=== PATIENT | female | born 1935 | race Caucasian/White ===

== ENCOUNTER 2018-04-29 00:44 | Inpatient (IN) | payer MEDICARE, MEDICAID ==
[2018-04-29 01:29] LABS: #Eosinphils 0.4 thou/uL (0.0-0.7); #Lymphocytes 2.9 thou/uL (1.20-3.40); #Monocytes 0.7 thou/uL (0.11-0.59); #Neutrophils 7.2 thou/uL (1.40-6.50); %Basophils 0.3 % (0.0-1.0); %Eosinophils 3.4 % (0.0-10.0); %Lymphocytes 25.7 % (21.0-51.0); %Monocytes 6.2 % (0.0-10.0); %Neutrophils 64.4 % (42.0-75.0); Hemoglobin 14.2 g/dL (12.0-16.0); Mean Corpuscular HGB CONC 33.5 g/dL (32.0-36.0); Mean Corpuscular Hemoglobin 33.2 pg (27.0-31.0); Mean Platelet Volume 8.2 fL (7.4-10.4); Platelet Count 178 thou/uL (130-400); RBC Distribution Width 12.3 % (11.5-14.5); Red Blood Cell (RBC) Count 4.28 mill/uL (4.20-5.40); White Blood Cell (WBC) Count 11.1 thou/uL (4.8-10.8)
[2018-04-29 01:49] LABS: ALT (SGPT) 24 U/L (8-55); AST (SGOT) 17 U/L (5-34); Alkaline Phosphatase 69 U/L (40-150); Anion Gap 14 mmol/L (10-20); BUN (Urea Nitrogen) 26 mg/dL (9.8-20.1); Bilirubin, Total 0.2 mg/dL (0.2-1.2); CK (CPK) 60 U/L (29-168); Calc. Creatinine Clearance 0 mL/min (70-130); Calcium 9.2 mg/dL (7.8-10.44); Carbon Dioxide 22 mmol/L (23-31); Chloride 106 mmol/L (98-107); Estimated GFR-MDRD 71; Globulin 2.9 g/dL (2.4-3.5); Glucose 113 mg/dL (83-110); Protein, Total 6.9 g/dL (6.0-8.3); Sodium 138 mmol/L (136-145)
[2018-04-29 01:53] LABS: CKMB 3.4 ng/mL (0-6.6); Troponin I 0.034 ng/mL (< 0.028)
[2018-04-29 03:10] LABS: Bilirubin Negative (Negative); Blood, Urine Trace (Negative); Clarity TURBID (Clear); Glucose, Urine (Dipstick) Negative (Negative); Leukocyte Large (Negative); Nitrite Positive (Negative); Protein, Urine (Dipstick) 30 mg/dL (Neg-Trace); Specific Gravity, Urine 1.018 (1.002-1.036); pH, Urine 7.5 (5.0-9.0)
[2018-04-29 03:13] LABS: Bacteria/HPF 4+ HPF (None Seen); Hyaline Casts/LPF 4-6 HYALINE CAST LPF (0-3 Hyaline); Pathc Cast-AUWi Flag 0.52 (0-2.49); RBC/HPF 0-3 HPF (0-3); Squamous Epithelial 0-3 HPF (0-3)
[2018-04-29 03:15] LABS: Yeast-AUWi Flag 32.1 (0-25.0)
[2018-04-29 03:19] LABS: Yeast-All Forms None Seen HPF (None Seen)
[2018-04-29] MEDS ORDERED: cefTRIAXone\\ROCEPHIN 2 GM VIAL ONE (03:59)
[2018-04-29] MEDS ORDERED: Enoxaparin Sodium 80 MG/0.8 ML SYRINGE ONE (04:44)
[2018-04-29] MEDS ORDERED: Ondansetron HCl/PF 4 MG/2 ML Vial IVP PRN (07:47)
[2018-04-29] MEDS ORDERED: Ondansetron ODT 4 MG TAB SL PRN (07:47)
[2018-04-29] MEDS ORDERED: Acetaminophen 325 MG TAB PO PRN (07:47)
[2018-04-29 08:05] LABS: INR-International Normal Ratio 1.2
--- NOTE | 2018-04-29 08:05 | PDOC.FPRHP ---
- History of Present Illness Chief Complaint: Right lower leg swelling History of Present Illness: 82 yo demented, longterm female brought into ED for RLE swelling starting today. On interview patient is unable to provide any further history but denies any current pain. Code status discussed with daughter via phone who confirmed DNR for patient. ED Course: LE Doppler confirmed DVT and CT chest showed multiple b/l PE per report to ERMD from radiology. Formal read pending. She was started on Lovenox. UA showed UTI and was started on Ceftriaxone 2gm. EKG showed Afib with RVR and she was given Diltiazem 20mg. - Allergies/Adverse Reactions Allergies Allergy/AdvReac Type Severity Reaction Status Date / Time No Known Drug Allergies Allergy Verified 04/29/18 10:53 - Home Medications Medication Instructions Recorded Confirmed Type Citalopram [CeleXA] 20 mg PO DAILY 04/29/18 04/29/18 History Diltiazem CD [Cardizem CD] 120 mg PO DAILY 04/29/18 04/29/18 History Donepezil HCl [Aricept] 10 mg PO HS 04/29/18 04/29/18 History Ferrous Sulfate 325 mg PO 04/29/18 History Furosemide [Lasix] PO DAILY 04/29/18 History Levothyroxine Sodium [Synthroid] 50 mcg PO DAILY 04/29/18 04/29/18 History - History PMHx: Hypothyroidism, CHF, Anemia, Dementia PSHx: Unable to obtain from patient FHx:Unable to obtain from patient Social: Unable to obtain from patient - Review of Systems ROS unobtainable: due to mental status (Unable to obtain ROS due to disoriented patient.) - Vital signs BP: [96/66] HR: [63] RR: [28] Tmax: [97.7] Pox: [95]% on [RA] Wt: [83kg] - Physical Exam Constitutional: NAD, other (Oriented x1 (only to person)) HEENT: normocephalic and atraumatic, no scleral icterus Chest: no lesions Heart: RRR, other Lungs: no respiratory distress, other (expiratory wheezes on auscultation) Abdomen: soft, non-tender, bowel sounds present Musculoskeletal: normal structure Skin: no rash/lesions, other (RLE edema from knee down. Non erythematous and non tender to palpation) Heme/Lymphatic: no unusual bruising or bleeding FMR H&P: Results - Labs Result Diagrams: 04/29/18 01:17 04/29/18 01:17 Lab results: WBC 11.1 thou/uL (4.8-10.8) H 04/29/18 01:17 Hgb 14.2 g/dL (12.0-16.0) 04/29/18 01:17 Hct 42.3 % (36.0-47.0) 04/29/18 01:17 MCV 99.0 fL (78.0-98.0) H 04/29/18 01:17 Plt Count 178 thou/uL (130-400) 04/29/18 01:17 Neutrophils % 64.4 % (42.0-75.0) 04/29/18 01:17 Sodium 138 mmol/L (136-145) 04/29/18 01:17 Potassium 4.0 mmol/L (3.5-5.1) 04/29/18 01:17 Chloride 106 mmol/L (98-107) 04/29/18 01:17 Carbon Dioxide 22 mmol/L (23-31) L 04/29/18 01:17 BUN 26 mg/dL (9.8-20.1) H 04/29/18 01:17 Creatinine 0.77 mg/dL (0.6-1.1) 04/29/18 01:17 Glucose 113 mg/dL (83-110) H 04/29/18 01:17 Calcium 9.2 mg/dL (7.8-10.44) 04/29/18 01:17 Total Bilirubin 0.2 mg/dL (0.2-1.2) 04/29/18 01:17 AST 17 U/L (5-34) 04/29/18 01:17 ALT 24 U/L (8-55) 04/29/18 01:17 Alkaline Phosphatase 69 U/L (40-150) 04/29/18 01:17 Creatine Kinase 60 U/L (29-168) 04/29/18 01:17 CK-MB (CK-2) 3.4 ng/mL (0-6.6) 04/29/18 01:17 B-Natriuretic Peptide 489.4 pg/mL (0-100) H 04/29/18 01:17 Serum Total Protein 6.9 g/dL (6.0-8.3) 04/29/18 01:17 Albumin 4.0 g/dL (3.4-4.8) 04/29/18 01:17 Urine Ketones Negative mg/dL (Negative) 04/29/18 02:34 Urine Blood Trace (Negative) H 04/29/18 02:34 Urine Nitrite Positive (Negative) H 04/29/18 02:34 Ur Leukocyte Esterase Large (Negative) H 04/29/18 02:34 Urine RBC 0-3 HPF (0-3) 04/29/18 02:34 Urine WBC Greater Than 50-TNTC HPF (0-3) H 04/29/18 02:34 Ur Squamous Epith Cells 0-3 HPF (0-3) 04/29/18 02:34 Urine Bacteria 4+ HPF (None Seen) H 04/29/18 02:34 - EKG Interpretation EKG: a fib with RVR FMR H&P: A/P - Problem List (1) DVT (deep venous thrombosis) Current Visit: Yes Status: Acute Code(s): I82.409 - ACUTE EMBOLISM AND THOMBOS UNSP DEEP VN UNSP LOWER EXTREMITY (2) Pulmonary emboli Current Visit: Yes Status: Acute Code(s): I26.99 - OTHER PULMONARY EMBOLISM WITHOUT ACUTE COR PULMONALE (3) UTI (urinary tract infection) Current Visit: Yes Status: Acute (4) Hypothyroid Current Visit: Yes Status: Chronic Code(s): E03.9 - HYPOTHYROIDISM, UNSPECIFIED (5) Afib Current Visit: Yes Status: Chronic Code(s): I48.91 - UNSPECIFIED ATRIAL FIBRILLATION (6) CHF (congestive heart failure) Current Visit: Yes Status: Acute Code(s): I50.9 - HEART FAILURE, UNSPECIFIED - Plan 82 yo F with DVT, multiple, b/l PE, UTI, AFib with RVR. 1. DVT & PE -Admit to telemery ([facility]) -Lovenox 80mg SC q12hrs -Coag studies ordered -Formal read on imaging pending -Pulmonology consult in a.m. 2. UTI -Started on Rocephin 1gm (day 1: 05/30) -Pending urine cultures 3. Afib with RVR: -Will repeat EKG -Troponins 0.034 -Continue home dose of Diltiazem: 120mg daily -Consider cardiology consult -Continue to monitor and observe 4. Hypothyroidism -TSH ordered -Synthroid 5.CHF -BNP 4894 -Echo ordered -Daily weights -Fluid restrict diet once swallow eval passed 6. Diet: NPO -Bedside swallow test ordered due to severe dementia 7. Dementia: -Home meds Discussed with family DNR status. FMR H&P: Upper Level - Pertinent history 82 yo F who presents from [place] for concern of RLE swelling. She denies any symptoms and feels well. Oriented x1 at baseline. - Pertinent findings Gen: awake, alert and oriented x1 HEENT: EOMI, conjunctiva non-injected CV: RRR, no murmur noted RESP: BL scattered expiratory wheezes ABD: soft, nontender, nondistended, bowel sounds present Ext: RLE with 2+ pitting edema to knee and L knee grossly larger than R - Plan Date/Time: 04/29/18 0802 I, Briana Wills MD, PGY-3, have evaluated this patient and agree with findings/ plan as outlined by psychology intern resident. Pertinent changes/additions are listed here. 82 yo F with PMHx as above here with RLE DVT and BL PE 1. BL PE and DVT: Admit to IMCU and will plan for therapeutic lovenox. Consult pulmonology in a.m. Hemodynamically stable at this time. 2. A fib: In RVR on admission, now in sinus. Lovenox as above. Will check TSH. Consider cardiology consult if a fib persistent/RVR. Home dilt. 3. Hypothyroidism: Check TSH. Continue home medications. 4. UTI: UCx pending. Continue rocephin. 5. CHF with unknown last EF: Elevated BNP. Will order ECHO. Fluid restrict diet once bedside swallow passed. No IV fluids at this time. 6. Dementia: Home aricept NPO pending bedside swallow. PPX: Therapeutic lovenox, no GI ppx indicated at this time Attending Addendum - Attending Addendum Date/Time: 04/29/18 0900 I personally evaluated the patient and discussed the management with Dr. Grace/ Johann. I agree with the History, Examination, Assessment and Plan documented above with any addition or exceptions noted below. Patient is a resident at [place] and presents with unilateral leg swelling and pain and AFib RVR with a history of chronic Afib previously rate controlled. She was found to have lower extremity DVT and CTA shows significant PE. She is hemodynamically stable, BP ok and is showing normal oxygenation on room air. She has no complaints other than chronic back pain. She has been admitted to [facility] for further monitoring. Continue therapeutic lovenox with bridge to half-way OAC, and obtain Echo. S/P Diltiazem, she has become bradycardic but asymptomatic. Will consult Pulm and Cardiology. Evidence of heart strain based on BNP but need echo for definitive evidence. Supportive care as needed. Holding home meds including Megace which can predispose to VTE.
[2018-04-29 08:06] LABS: PTT 40.6 SEC (22.9-36.1)
--- NOTE | 2018-04-29 08:49 | CT ---
PRELIMINARY REPORT/[facility]/EMERGENTY AFTER-HOURS PROCEDURE CT Head Without Intravenous Contrast CLINICAL HISTORY: 82 years old, female; Signs and symptoms; Altered mental status/memory loss; Patient HX: AMS TECHNIQUE: Axial computed tomography images of the head/brain without intravenous contrast. COMPARISON: No relevant prior studies available. FINDINGS: Limitations: Motion artifact limits this study. Brain: No evidence of acute large vessel infarction. No evidence of acute intracranial hemorrhage, ex traxial fluid or midline shift. Mild low density changes within the white matter bilaterally. Cerebel lum atrophic; otherwise, posterior fossa structures within normal limits. Ventricles: Mild prominence of the cerebral sulci and ventricles. Bones/joints: Normal. No acute fracture. Sinuses: Mild left maxillary sinus fluid/soft tissue. Mastoid air cells: Normal as visualized. No mastoid effusion. Soft tissues: Normal. IMPRESSION: 1. Motion artifact limits this study. 2. No evidence of acute large vessel infarction. 3. No evidence of acute intracranial hemorrhage, extraxial fluid or midline shift. 4. Mild cerebral atrophy. 5. 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 6. Mild left maxillary sinus fluid/soft tissue. Thank you for allowing us to participate in the care of your patient. Dictated and Authenticated by: Romain Crisostomo MD 04/29/2018 4:44 AM Central Time ([place] & [place]) CT HEAD NONCONTRAST: INDICATIONS: Altered mental status. FINDINGS/IMPRESSION: I agree with the preliminary interpretation provided above. There is no intracranial hemorrhage or mass effect. Moderate chronic microvascular ischemic disease. Left maxillary sinus inflammatory opacification. Correlate clinically. POS: [facility]
[2018-04-29] MEDS ORDERED: Enoxaparin Sodium 80 MG/0.8 ML SYRINGE SC SCH (09:00)
--- NOTE | 2018-04-29 09:09 | ULT ---
PRELIMINARY REPORT/[facility]/EMERGENTY AFTER-HOURS PROCEDURE Addendum created by Romain Crisostomo MD on 04/29/2018 3:54 AM Central Time ([place] & [place]) THIS REPORT CONTAINS FINDINGS THAT MAY BE CRITICAL TO PATIENT CARE. The findings were verbally commun icated via telephone conference with APARTMENT LEASING MANAGER Baylee De La Torre at 3:40 AM CDT on 04/29/2018. The findings were acknowledged and understood. Initial Report created on 04/29/2018 3:53 AM Central Time ([place] & [place]) US Duplex Right Lower Extremity Veins CLINICAL HISTORY: 82 years old, female; Pain; Other: Rle pain, swelling- entire leg TECHNIQUE: Real-time duplex ultrasound scan of the right lower extremity veins integrating B-mode two dimensiona l vascular structure, Doppler spectral analysis, color flow Doppler imaging and compression. COMPARISON: No relevant prior studies available. FINDINGS: Deep veins: Noncompressible right common femoral, femoral, popliteal and calf veins with internal hyp oechoic material consistent with thrombus. Superficial veins: Suspected thrombus in the visualized great saphenous vein. Soft tissues: No acute findings. No popliteal cyst. IMPRESSION: Abnormal study - DVT in the right lower extremity as described above. Thank you for allowing us to participate in the care of your patient. Dictated and Authenticated by: Romain Crisostomo MD 04/29/2018 3:53 AM Central Time ([place] & [place]) FINAL REPORT RIGHT LOWER EXTREMITY DOPPLER VENOUS ULTRASOUND: (COBB SCALE AND DOPPLER COLOR FLOW IMAGING WITH SPECTRAL ANALYSIS) FINDINGS/IMPRESSION: I agree with the preliminary report provided by [facility]. There is evidence of deep venous thrombosis involving common femoral through popliteal veins of right lower extremity. POS: [facility]
[2018-04-29 09:10] LABS: CKMB 3.4 ng/mL (0-6.6); Troponin I 0.021 ng/mL (< 0.028)
[2018-04-29] MEDS: Citalopram 20 MG TAB PO SCH (09:12)
[2018-04-29] MEDS: Furosemide 20 MG TAB PO SCH (09:12)
[2018-04-29] MEDS: Levothyroxine Sodium 50 MCG TAB PO SCH (09:12)
--- NOTE | 2018-04-29 09:13 | CT ---
PRELIMINARY REPORT/[facility]/EMERGENTY AFTER-HOURS PROCEDURE THIS REPORT CONTAINS FINDINGS THAT MAY BE CRITICAL TO PATIENT CARE. The findings were verbally commun icated via telephone conference with VIRAJ Kearns at 5:02 AM CDT on 04/29/2018. The findings were acknowledged and understood. Initial Report created on 04/29/2018 5:04 AM Central Time ([place]) CT Angiography Chest With Intravenous Contrast CLINICAL HISTORY: 82 years old, female; Pain; Other: Dyspnea; Patient HX: Dyspnea. Additional history obtained from [facility], additional history obtained from [facility], 82f presents via [facility] for the evaluation of right low er leg swelling and external rotation. Unsure if rotation is acute or chronic per [facility]. Patient also n oted to be afib w rvr during transport. Patient with HX of dementia, does not recall a fall TECHNIQUE: Axial computed tomographic angiography images of the chest with intravenous contrast using CT angiogr aphy protocol. MIP reconstructed images were created and reviewed. COMPARISON: No relevant prior studies available. FINDINGS: Limitations: External and motion artifact limits this study. Pulmonary arteries: Adequate contrast enhancement of the pulmonary arteries. Abnormal filling defects -emboli within the right pulmonary artery ascending and descending branches and too lobar right uppe r, right lower and left lower lobar-segmental pulmonary arterial vessels. No evidence of filling defects in the cardiac chambers. Aorta: No evidence of aortic dissection. Mild up to 3.7 cm ectasia of ascending thoracic aorta. Chronic atherosclerotic calcification of the vasculature. Lungs: No evidence endobronchial lesion. Mild bilateral lower lobe dependent air space opacityatelect asis/ scarring. Pleural space: No evidence of pleural effusion. No evidence of pneumothorax. Heart: Heart appears within normal limits, no pericardial effusion. Bones/joints: Multi-level degenerative changes involve the thoracic spine. Soft tissues: Unremarkable. Lymph nodes: No significant lymphadenopathy. Gallbladder and bile ducts: Gallbladder not identified - surgical clips present in fossa. Stomach and bowel: Mild - moderate amount retained stool material throughout nondilated colon. IMPRESSION: 1. External and motion artifact limits this study. 2. Abnormal study-evidence of bilateral pulmonary emboli as described above. 3. Mild up to 3.7 cm ectasia of ascending thoracic aorta. 4. Mild bilateral lower lobe dependent air space opacity-atelectasis/scarring. 5. Findings suggest mild-moderate degree of constipation. Thank you for allowing us to participate in the care of your patient. Dictated and Authenticated by: Romain Crisostomo MD 04/29/2018 5:04 AM Central Time ([place] & [place]) FINAL REPORT CT ARTERIOGRAM CHEST WITH IV CONTRAST AND 3D MIP IMAGING: Date: 04-29-18 performed on emergency basis at 0414 hours. History: Chest pain, dyspnea. FINDINGS: I agree with the preliminary report by Dr. Mackenzie from [facility]. Small, incompletely occlus yohana bilateral lower lobe pulmonary emboli are confirmed. Code QA POS: [facility]
--- NOTE | 2018-04-29 09:53 | RAD ---
PORTABLE CHEST: Date: 04/29/18 HISTORY: Atrial fibrillation. FINDINGS: Heart size within normal limits. Aorta is tortuous. The lungs are clear of any infiltrative process. No signs of failure. IMPRESSION: No active intrathoracic disease. POS: [facility]
--- NOTE | 2018-04-29 10:00 | RAD ---
TWO AP VIEWS OF THE PELVIS: INDICATIONS: Concern for possible right hip fracture with right hip pain and atrial fibrillation with RVR. COMPARISON: No comparisons are available. FINDINGS: The two provided AP images demonstrate diffuse osteopenia of the pelvis. Enthesopathic change is see n off the trochanters, as well as the anterior pelvis. No definite displaced fracture is evident. T he right hip is held in external rotation, which slightly limits the examination. There are scattere d phleboliths within the pelvis. There is advanced disk degenerative disease at L5-S1 with moderate degenerative changes involving both SI joints. The visualized bowel gas pattern is nonspecific. IMPRESSION: 1. Diffuse osteopenia without definite acute fracture. There are some limitations of the examinatio n due to positioning. Dedicated right hip radiographs are recommended to assess further for right hi p fracture, as the right hip is held in external rotation during the anterior-posterior evaluation of this pelvis. 2. Chronic findings as above. POS: [facility]
--- NOTE | 2018-04-29 10:58 | CON ---
DATE OF CONSULTATION: 04/29/2018 This encompasses 70 minutes of time. Of that time, greater than 50% was spent with the patient and/o r in the patient's unit in the hospital. REASON FOR CONSULTATION: Pulmonary embolism. This is [facility] mandatory consultation. HISTORY OF PRESENT ILLNESS: This is an 82-year-old white female who is severely demented and cannot give me much in the way of history other than she states that she is short of breath. She was jennifer t in last night with lower extremity swelling. She had a scan, which demonstrated bilateral pulmonar y emboli. She has been placed on anticoagulation and she is currently in the intermediate care unit. From what I can tell, she is a long-term patient at [facility] under the care of Dr. Kesha Cody. PAST MEDICAL HISTORY: 1. COPD. 2. Hypertension. 3. Hypothyroidism. 4. Irritable bowel syndrome. 5. Degenerative joint disease. 6. Anxiety. 7. Depression. 8. Tobacco abuse. 9. Insomnia. 10. Dementia. 11. Osteoporosis. PAST SURGICAL HISTORY: 1. Hysterectomy with bilateral oophorectomy. 2. Right knee hemiarthroplasty. 3. Right foot surgery. 4. EGD. 5. Glaucoma surgery. 6. Colonoscopy with polypectomy. FAMILY MEDICAL HISTORY: Remarkable for father who in his 70s of stroke. Mother in her 60s of [place]. Family medical history is also remarkable for arthritis, diabetes, coronary artery disease, hypertension, stroke, osteoporosis. SOCIAL HISTORY: She is a former smoker who smoked 1 pack per day up until 2013, does not consume alc ohol. MEDICATIONS PRIOR TO ADMISSION: Aricept, Celexa, Synthroid, Cardizem-CD, Lasix, iron sulfate. ALLERGIES: None. REVIEW OF SYSTEMS: Twelve point review of systems cannot be obtained secondary to the patient's glen re dementia. PHYSICAL EXAMINATION: VITAL SIGNS: Blood pressure 96/66, heart rate 63, respirations 20, temperature 97.7, O2 sat 95%. GENERAL: The patient is awake and in no distress. HEENT: Pupils react. Sclerae anicteric. Oropharynx clear. NECK: No adenopathy, no JVD, or bruits. LUNGS: Clear without wheezing or rhonchi. CARDIAC: S1, S2 regular with 2/6 systolic murmur at the left sternal border. ABDOMEN: Soft, nontender, nondistended. No hepatosplenomegaly. EXTREMITIES: No clubbing, cyanosis. She has right lower extremity edema from the knee downward. LABORATORY DATA AND IMAGING: White blood cell count 11, hematocrit 42, platelet count 178. Sodium 1 38, potassium 4, chloride 106, CO2 22, BUN 26, creatinine 0.7, glucose 113. I reviewed her CT of the chest personally, it does show a fairly substantial right saddle pulmonary embolism. She also has p eripheral pulmonary emboli bilaterally. A Doppler of the right lower extremity also showed DVT. ASSESSMENT: 1. Pulmonary embolism. 2. Deep venous thrombosis. 3. Severe dementia. 4. Other chronic medical problems as listed above. RECOMMENDATIONS: This patient needs to be treated for pulmonary emboli. I would recommend switching her to either Eliquis or Xarelto and stopping the enoxaparin. If there is significant bleeding risk , then Coumadin should be considered as it would be rapidly reversible. She is probably safe to move out to the regular telemetry unit. She does have a DNR order.
[2018-04-29] MEDS ORDERED: Diltiazem 125 MG in Sodium Chloride 0.9% 100 ML IVPB SCH (12:15)
[2018-04-29] MEDS: Lactated Ringer's 1,000 ML IV SCH (12:34)
[2018-04-29] MEDS ORDERED: ISOVUE-370 76%-LOCM 1 ML ONE (13:00)
[2018-04-29] MEDS ORDERED: Amiodarone HCl 150 MG in Dextrose 5% in Water 100 ML IVPB SCH (17:15)
[2018-04-29] MEDS ORDERED: Amiodarone In Dextrose 200 ML IVPB SCH (17:15)
[2018-04-29] MEDS ORDERED: Amiodarone HCl 150 MG, Admixture Fee 1 EACH in Dextrose 5% in Water 100 ML IVPB SCH (17:45)
[2018-04-29] MEDS: Amiodarone HCl 450 MG, Admixture Fee 1 EACH in Dextrose 5% in Water 250 ML IVPB SCH (18:28)
[2018-04-29] MEDS: Apixaban 5 MG TAB PO SCH (20:22)
[2018-04-29] MEDS: Donepezil HCl 10 MG TAB PO SCH (20:22)
[2018-04-29] MEDS ORDERED: Apixaban 5 MG TAB PO SCH (21:00)
--- NOTE | 2018-04-29 23:25 | CON ---
DATE OF CONSULTATION: 04/29/2018 HISTORY: Tammi Jean is an 82-year-old white female group home resident from [place] with history of dementia. Her daughter states that she was on hospice for a while because of her severe COPD, but when she stopped smoking 2 packs per day four and half years ago, her COPD improved to where she was taken off of hospice, but she was still in the group home in [place] for dementia. She gets around in a wheelchair. Apparently, it was noted that she had leg edema and was sent to the emergency room for right leg edema. She was found to have a DVT in this leg and chest CTA revealed bilateral pulmonary emboli. She has had paroxysmal atrial fibrillation since admission. Due to Ms. Jean's dementia, I am uncertain as to her reliability. However, she does deny any chest discomfort or shortness of breath at the present time. She denies any history of palpitations. PAST MEDICAL HISTORY: Dementia, hypothyroidism and anemia. MEDICATIONS: Celexa 20 mg daily, diltiazem 120 daily, Aricept 10 mg at bedtime , ferrous sulfate 325 daily, furosemide unknown dose daily and levothyroxine 50 mcg daily. ALLERGIES: None. OPERATIONS: Hysterectomy with bilateral salpingo-oophorectomy, right foot surgery, right knee arthroscopy, glaucoma surgery, colonoscopy with polypectomy. SOCIAL HISTORY: She smoked 2 packs per day, but stopped 4-1/2 years ago. FAMILY HISTORY: Unobtainable. REVIEW OF SYSTEMS: Unobtainable. PHYSICAL EXAMINATION: VITAL SIGNS: 108/59, pulse of 115, atrial fibrillation on the monitor. HEENT: PERRL. NECK: Supple. CHEST: Clear. CARDIAC: S1, S2 normal, without any S3 or S4. There are no murmurs. ABDOMEN: Normal bowel sounds without tenderness or organomegaly. EXTREMITIES: Revealed 2+ pretibial edema on the right, no edema on the left. NEUROLOGIC: Intact except for patient's dementia. IMAGING DATA AND LABORATORY DATA: EKG revealed atrial fibrillation with rapid ventricular response of 127 per minute. Hemoglobin 14.2, hematocrit 42.3, white count 11,100 and platelets 178,000. INR 1.2, sodium 138, potassium 4.0, chloride 106, carbon dioxide 22, BUN 26, creatinine 0.77, troponin I 0.034, BNP 489.4. TSH is normal. IMPRESSION: 1. Right leg deep venous thrombosis with bilateral pulmonary emboli. 2. Paroxysmal atrial fibrillation, probably related to #1. 3. Dementia. 4. Hypothyroidism. 5. Hypertension. 6. Chronic obstructive pulmonary disease, former smoker. PLAN: Patient is somewhat hypotensive on the Cardizem and I agree with starting amiodarone intravenously. Also for slowing her rate, she may require intermittent doses of digoxin. I will continue to follow the patient with you. MTDD
[2018-04-30] MEDS: Lactated Ringer's 1,000 ML IV SCH ×2 (01:05→09:37)
[2018-04-30] MEDS: Amiodarone HCl 450 MG, Admixture Fee 1 EACH in Dextrose 5% in Water 250 ML IVPB SCH ×2 (03:38→20:16)
[2018-04-30] MEDS: Acetaminophen 325 MG TAB PO PRN ×2 (04:17→20:50)
[2018-04-30 04:40] LABS: #Basophils 0.1 thou/uL (0.0-0.2); #Eosinphils 0.3 thou/uL (0.0-0.7); #Lymphocytes 3.3 thou/uL (1.20-3.40); #Monocytes 0.8 thou/uL (0.11-0.59); #Neutrophils 6.4 thou/uL (1.40-6.50); %Basophils 0.7 % (0.0-1.0); %Eosinophils 2.9 % (0.0-10.0); %Lymphocytes 30.2 % (21.0-51.0); %Neutrophils 59.1 % (42.0-75.0); Hemoglobin 13.6 g/dL (12.0-16.0); Mean Corpuscular Hemoglobin 33.6 pg (27.0-31.0); Mean Corpuscular Volume 98.6 fL (78.0-98.0); Mean Platelet Volume 7.9 fL (7.4-10.4); Platelet Count 195 thou/uL (130-400); RBC Distribution Width 12.3 % (11.5-14.5); Red Blood Cell (RBC) Count 4.07 mill/uL (4.20-5.40); White Blood Cell (WBC) Count 10.8 thou/uL (4.8-10.8)
[2018-04-30] MEDS: cefTRIAXone\\ROCEPHIN 1 GM in Sodium Chloride 0.9% 100 ML IVPB SCH (04:45)
[2018-04-30 05:08] LABS: ALT (SGPT) 23 U/L (8-55); AST (SGOT) 20 U/L (5-34); Albumin 3.4 g/dL (3.4-4.8); Alkaline Phosphatase 37 U/L (40-150); Anion Gap 14 mmol/L (10-20); BUN (Urea Nitrogen) 17 mg/dL (9.8-20.1); Bilirubin, Total 0.3 mg/dL (0.2-1.2); Calc. Creatinine Clearance 69 mL/min (70-130); Calcium 8.7 mg/dL (7.8-10.44); Carbon Dioxide 22 mmol/L (23-31); Chloride 104 mmol/L (98-107); Estimated GFR-MDRD 77; Globulin 2.6 g/dL (2.4-3.5); Glucose 79 mg/dL (83-110); Potassium 4.1 mmol/L (3.5-5.1); Sodium 136 mmol/L (136-145)
--- NOTE | 2018-04-30 06:14 | PDOC.FM ---
- Subjective Subjective: 82 yo female seen this AM. Patient has no complaint of pain or SOB. She states she has been sleeping well. She denies n/v/d, fevers, chills, chest pain, lightheadedness, or cough. She has no other complaints today. - Objective Vital Signs & Weight: Vital Signs (12 hours) Temp Pulse Resp BP Pulse Ox 04/30/18 03:57 97.2 F L 59 L 22 H 91/43 L 98 04/29/18 23:42 97.0 F L 67 22 H 114/65 95 04/29/18 20:00 97.0 F L 67 22 H 04/29/18 19:46 98.8 F 88 24 H 114/58 L 96 Weight Weight 74.843 kg I&O: 04/28/18 04/29/18 04/30/18 06:59 06:59 06:59 Intake Total 1051 Balance 1051 Result Diagrams: 04/30/18 03:16 04/30/18 03:16 <Rohit Schneider - Last Filed: 04/30/18 07:23> - Objective Vital Signs & Weight: Vital Signs (12 hours) Temp Pulse Resp BP Pulse Ox 04/30/18 11:36 98.1 F 63 20 100/43 L 95 04/30/18 09:15 62 04/30/18 08:00 98.6 F 62 19 98 04/30/18 07:37 98.6 F 58 L 19 127/58 L 98 04/30/18 03:57 97.2 F L 59 L 22 H 91/43 L 98 Weight Weight 74.843 kg I&O: 04/29/18 04/30/18 05/01/18 06:59 06:59 06:59 Intake Total 1051 1103 Balance 1051 1103 Result Diagrams: 04/30/18 03:16 04/30/18 03:16 <Chance Goodman - Last Filed: 04/30/18 11:47> Phys Exam - Physical Examination Constitutional: NAD HEENT: PERRLA, moist MMs Neck: no nodes Respiratory: no wheezing, clear to auscultation bilateral Cardiovascular: no significant murmur Bradycardia Gastrointestinal: soft, non-tender, no distention, positive bowel sounds Musculoskeletal: pulses present RLE swelling. Neurological: non-focal, moves all 4 limbs Lymphatic: no nodes Psychiatric: normal affect Skin: no rash <Rohit Schneider - Last Filed: 04/30/18 07:23> Dx/Plan (1) Pulmonary emboli Code(s): I26.99 - OTHER PULMONARY EMBOLISM WITHOUT ACUTE COR PULMONALE Status : Acute (2) DVT (deep venous thrombosis) Code(s): I82.409 - ACUTE EMBOLISM AND THOMBOS UNSP DEEP VN UNSP LOWER EXTREMITY Status: Acute (3) Afib Code(s): I48.91 - UNSPECIFIED ATRIAL FIBRILLATION Status: Chronic (4) UTI (urinary tract infection) Status: Acute (5) CHF (congestive heart failure) Code(s): I50.9 - HEART FAILURE, UNSPECIFIED Status: Acute (6) Hypothyroid Code(s): E03.9 - HYPOTHYROIDISM, UNSPECIFIED Status: Chronic - Plan Plan: 1. DVT & PE - Lovenox transitioned to Eliquis - Hemodynamically stable at this time. - Continue anticoagulation 2. UTI - Started on Rocephin 1gm - Urine cultures Gram negative hiro. Sensitivities pending 3. Afib with RVR: - Patient has converted to sinus rhythm, but bradycardia - Currently on Amiodarone, will consider digoxin - Held home diltiazem for now - Cardiology consulted and is in agreement - Continue to monitor and observe 4. Hypothyroidism - TSH appropriate - Synthroid 5.CHF - BNP 4894 - Echo ordered - Daily weights - Fluid restrict diet once swallow eval passed 6. Dementia: - Home meds Disposition: Stable, will continue current plan of care. <Rohit Schneider - Last Filed: 04/30/18 07:23> (1) DVT (deep venous thrombosis) Code(s): I82.409 - ACUTE EMBOLISM AND THOMBOS UNSP DEEP VN UNSP LOWER EXTREMITY Status: Acute (2) Pulmonary emboli Code(s): I26.99 - OTHER PULMONARY EMBOLISM WITHOUT ACUTE COR PULMONALE Status : Acute (3) UTI (urinary tract infection) Status: Acute (4) Hypothyroid Code(s): E03.9 - HYPOTHYROIDISM, UNSPECIFIED Status: Chronic (5) Afib Code(s): I48.91 - UNSPECIFIED ATRIAL FIBRILLATION Status: Chronic (6) CHF (congestive heart failure) Code(s): I50.9 - HEART FAILURE, UNSPECIFIED Status: Acute <Chance Goodman R - Last Filed: 04/30/18 11:47> Attending Addendum - Attending Addendum Date/Time: 04/30/18 0016 I personally evaluated the patient and discussed the management with Dr. Schneider. I agree with the History, Examination, Assessment and Plan documented above with any addition or exceptions noted below. Patient doing well and denies complaints. She is now on Eliquis for OAC for treatment of her PE. Echo pending, but not hypoxic and HDS so does not appear to be major threat. HR improved with Amio and will continue that. Will transfer from IMCU to telemetry today. <Chance Goodman R - Last Filed: 04/30/18 11:47>
[2018-04-30] MEDS ORDERED: Digoxin 0.5 MG/2 ML AMP SLOW IVP SCH (08:30)
--- NOTE | 2018-04-30 08:58 | PRG ---
DATE OF SERVICE: 04/30/2018 The patient is awake, alert, not completely oriented. She had no acute complaints. PHYSICAL EXAMINATION: VITAL SIGNS: Temperature 98.6, pulse 58, respiration 19, O2 sat 98%, blood pressure 127/58. HEENT: Unremarkable. NECK: No JVD. CARDIAC: S1, S2, irregularly irregular, currently on an amiodarone drip. LUNGS: Clear. ABDOMEN: Soft, nontender. EXTREMITIES: Left lower extremity edema is present. LABORATORY DATA: White blood cell count 10.8, hematocrit 40.1, platelet count 195. Sodium 136, pota ssium 4.1, chloride 104, CO2 22, BUN 17, creatinine 0.7, glucose 79. ASSESSMENT: 1. Acute pulmonary embolism. 2. Atrial fibrillation. 3. Dementia. 4. Hypothyroidism. 5. Chronic obstructive pulmonary disease. PLAN: 1. Continue anticoagulation with Eliquis. 2. The patient can probably be moved out to the telemetry unit. 3. Duration of anticoagulation will need to be at least 6 months and perhaps lifetime. 4. Stop her IV fluids since she is receiving diuretic therapy.
[2018-04-30] MEDS: Citalopram 20 MG TAB PO SCH (09:14)
[2018-04-30] MEDS: Apixaban 5 MG TAB PO SCH ×2 (09:14→20:50)
[2018-04-30] MEDS: Furosemide 20 MG TAB PO SCH (09:15)
[2018-04-30] MEDS: Levothyroxine Sodium 50 MCG TAB PO SCH (09:15)
[2018-04-30] MEDS: Donepezil HCl 10 MG TAB PO SCH (20:50)
[2018-05-01] MEDS: cefTRIAXone\\ROCEPHIN 1 GM in Sodium Chloride 0.9% 100 ML IVPB SCH (04:49)
[2018-05-01] MEDS ORDERED: Benzonatate 100 MG CAP PO PRN (05:07)
[2018-05-01 06:04] LABS: ALT (SGPT) 24 U/L (8-55); AST (SGOT) 19 U/L (5-34); Albumin 3.5 g/dL (3.4-4.8); Alkaline Phosphatase 43 U/L (40-150); Anion Gap 10 mmol/L (10-20); BUN (Urea Nitrogen) 14 mg/dL (9.8-20.1); Bilirubin, Total 0.3 mg/dL (0.2-1.2); Calc. Creatinine Clearance 68 mL/min (70-130); Calcium 8.7 mg/dL (7.8-10.44); Carbon Dioxide 25 mmol/L (23-31); Chloride 106 mmol/L (98-107); Estimated GFR-MDRD 70; Globulin 2.3 g/dL (2.4-3.5); Glucose 82 mg/dL (83-110); Protein, Total 5.8 g/dL (6.0-8.3); Sodium 137 mmol/L (136-145)
[2018-05-01 06:26] LABS: #Eosinphils 0.3 thou/uL (0.0-0.7); #Lymphocytes 2.9 thou/uL (1.20-3.40); #Monocytes 0.6 thou/uL (0.11-0.59); #Neutrophils 5.1 thou/uL (1.40-6.50); %Basophils 0.2 % (0.0-1.0); %Eosinophils 3.1 % (0.0-10.0); %Lymphocytes 32.9 % (21.0-51.0); %Monocytes 6.7 % (0.0-10.0); %Neutrophils 57.1 % (42.0-75.0); Hemoglobin 13.2 g/dL (12.0-16.0); Mean Corpuscular HGB CONC 33.7 g/dL (32.0-36.0); Mean Corpuscular Hemoglobin 33.4 pg (27.0-31.0); Mean Corpuscular Volume 99.2 fL (78.0-98.0); Mean Platelet Volume 8.4 fL (7.4-10.4); Platelet Count 175 thou/uL (130-400); RBC Distribution Width 12.2 % (11.5-14.5); Red Blood Cell (RBC) Count 3.94 mill/uL (4.20-5.40); White Blood Cell (WBC) Count 8.9 thou/uL (4.8-10.8)
--- NOTE | 2018-05-01 06:31 | PDOC.FM ---
- Subjective Subjective: 82 yo female seen this AM. Patient states that she had a good night. She denies any complaints. Night team informed that patient had pink tinged urine overnight. Coagulation panel shows INR 1.5 this AM up from 1.2. Patient otherwise has no other complaints. - Objective Vital Signs & Weight: Vital Signs (12 hours) Temp Pulse Resp BP Pulse Ox 05/01/18 04:00 97.4 F L 55 L 20 120/71 97 05/01/18 00:37 97.9 F 64 20 152/72 H 96 04/30/18 22:26 55 L 24 H 135/61 04/30/18 20:10 98.1 F 64 24 H 96 04/30/18 19:40 98.1 F 66 24 H 136/68 96 Weight Weight 79.787 kg I&O: 04/29/18 04/30/18 05/01/18 06:59 06:59 06:59 Intake Total 1051 2499 Balance 1051 2499 Result Diagrams: 05/01/18 05:15 05/01/18 05:15 <Rohit Schneider - Last Filed: 05/01/18 07:42> - Objective Vital Signs & Weight: Vital Signs (12 hours) Temp Pulse Pulse Resp BP BP Pulse Ox 05/01/18 11:50 98.7 F 50 L 18 142/63 H 96 05/01/18 09:37 53 L 138/65 05/01/18 08:05 97.3 F L 50 L 20 150/72 H 96 05/01/18 04:00 97.4 F L 55 L 20 120/71 97 Weight Admit Weight 74.843 kg Weight 79.787 kg I&O: 04/30/18 05/01/18 05/02/18 06:59 06:59 06:59 Intake Total 1051 2499 Balance 1051 2499 Result Diagrams: 05/01/18 05:15 05/01/18 05:15 <Chance Goodman - Last Filed: 05/01/18 13:23> Phys Exam - Physical Examination Constitutional: NAD HEENT: PERRLA, moist MMs Neck: no nodes Respiratory: no wheezing, clear to auscultation bilateral Cardiovascular: no significant murmur Bradycardia Gastrointestinal: soft, non-tender, no distention, positive bowel sounds Musculoskeletal: no edema, pulses present Neurological: non-focal, moves all 4 limbs Psychiatric: normal affect Skin: no rash <Rohit Schneider - Last Filed: 05/01/18 07:42> Dx/Plan (1) Pulmonary emboli Code(s): I26.99 - OTHER PULMONARY EMBOLISM WITHOUT ACUTE COR PULMONALE Status : Acute (2) DVT (deep venous thrombosis) Code(s): I82.409 - ACUTE EMBOLISM AND THOMBOS UNSP DEEP VN UNSP LOWER EXTREMITY Status: Acute (3) Afib Code(s): I48.91 - UNSPECIFIED ATRIAL FIBRILLATION Status: Chronic (4) UTI (urinary tract infection) Status: Acute (5) CHF (congestive heart failure) Code(s): I50.9 - HEART FAILURE, UNSPECIFIED Status: Acute (6) Hypothyroid Code(s): E03.9 - HYPOTHYROIDISM, UNSPECIFIED Status: Chronic (7) Hematuria Code(s): R31.9 - HEMATURIA, UNSPECIFIED Status: Acute (8) Dysphagia Code(s): R13.10 - DYSPHAGIA, UNSPECIFIED Status: Acute - Plan Plan: 1. DVT & PE - Lovenox transitioned to Eliquis - Hemodynamically stable at this time. - Continue anticoagulation 2. UTI - Started on Rocephin 1gm - Urine cultures Proteus - Treatment appropriate per sensitivities 3. Afib with RVR: - Patient has converted to sinus rhythm, but bradycardia - Amiodarone discontinued at 22:00 last night. - Held home diltiazem for now - Cardiology consulted and is in agreement - Patient had 2.2 second pause on tele overnight, appreciate cardiology recs. 4. Hypothyroidism - TSH appropriate - Synthroid 5.CHF - BNP 4894 - Echo showed EF 50-55% - Daily weights - Fluid restrict diet once swallow eval passed 6. Dementia: - Home meds 7. Hematuria - Likely related to anticoagulation and recent infection - Coagulation panel shows INR 1.5 - Will monitor closely. 8. Dysphagia - Episodes of coughing and possible aspiration - NPO pending speech evaluation. Disposition: Stable, will continue current plan of care. <Rohit Schneider - Last Filed: 05/01/18 07:42> (1) DVT (deep venous thrombosis) Code(s): I82.409 - ACUTE EMBOLISM AND THOMBOS UNSP DEEP VN UNSP LOWER EXTREMITY Status: Acute (2) Pulmonary emboli Code(s): I26.99 - OTHER PULMONARY EMBOLISM WITHOUT ACUTE COR PULMONALE Status : Acute (3) UTI (urinary tract infection) Status: Acute (4) Hypothyroid Code(s): E03.9 - HYPOTHYROIDISM, UNSPECIFIED Status: Chronic (5) Afib Code(s): I48.91 - UNSPECIFIED ATRIAL FIBRILLATION Status: Chronic (6) CHF (congestive heart failure) Code(s): I50.9 - HEART FAILURE, UNSPECIFIED Status: Acute <Chance Goodman - Last Filed: 05/01/18 13:23> Attending Addendum - Attending Addendum Date/Time: 05/01/18 1322 I personally evaluated the patient and discussed the management with Dr. Schneider. I agree with the History, Examination, Assessment and Plan documented above with any addition or exceptions noted below. Patient doing well this morning. She is off amiodarone gtt due to bradycardia. Currently in sinus martínez, with no recurrence of Afib. Await further cardiology recs regarding her [employer] anti-arhythmic control. She is stable from PE standpoint and will continue on Eliquis. Nearing stability for discharge once cardiology opts for oral rate/rhythm control. <Chance Goodman R - Last Filed: 05/01/18 13:23>
[2018-05-01 06:53] LABS: INR-International Normal Ratio 1.5; Prothrombin Time 17.7 SEC (12.0-14.7)
[2018-05-01 06:54] LABS: PTT 34.2 SEC (22.9-36.1)
[2018-05-01 09:01] VITALS: BMI 28.3
--- NOTE | 2018-05-01 09:55 | PQF ---
CLINICAL DOCUMENTATION IMPROVEMENT CLARIFICATION FORM: ICD-10 Updated PLEASE DO AN ADDENDUM TO THE PROGRESS NOTE WITH ANY DOCUMENTATION UPDATES OR ADDITIONS AND CARRY THROUGH TO DC SUMMARY. THANK YOU. DATE: 05/01 ATTN: DR. Radha CHUN/ DR. Kristian ROY Please exercise your independent, professional judgment in responding to the clarification form. Clinical indicators are provided on the bottom of this form for your review. Please check appropriate box(s): ACUTE HEART FAILURE, UNSPECIFIED TYPE: [ ] Systolic / HFrEF [ ] Diastolic / HFpEF [ ] Combined Systolic / Diastolic [ X ] Other diagnosis _acute heart strain 2/2 pulmonary embolism [ ] Unable to determine For continuity of documentation, please document condition throughout progress notes and discharge summary. Thank You. CLINICAL INDICATORS - SIGNS / SYMPTOMS / LABS BNP: 489 ECHO: TECHNICALLY DIFFICULT EF 50-55%, MOD MITRAL REGURGITATION, MOD AORTIC REGURGITATION, MILD TRICUSPID REGURGITATION PHYSICIAN H&P DOCUMENTATION 04/29: ASSESSMENT/PLAN: 6) CHF, UNSPECIFIED, ACUTE ; BNP 489 PHYSICIAN PN 04/30 & : DX/PLAN: 5) CHF, UNSPECIFIED, ACUTE; ECHO - EF 50-55% RISKS: ACUTE B PULMONARY EMBOLISM ACUTE RLE DVT AFIB W/RVR ON ADMIT HTN TREATMENTS: CARDIOLOGY CONSULT ECHO PO LASIX (04/29 - PRESENT) TELEMETRY MONITORING THANK YOU! Jonelle (This form is maintained as a part of the permanent medical record) 2014 [employer]. All Rights Reserved Jonelle Bruner RN, BSN [email or web address] Office: [phone] [facility]
--- NOTE | 2018-05-01 10:05 | PQF ---
CLINICAL DOCUMENTATION IMPROVEMENT CLARIFICATION FORM: ICD-10 Updated PLEASE DO AN ADDENDUM TO THE PROGRESS NOTE WITH ANY DOCUMENTATION UPDATES OR ADDITIONS AND CARRY THROUGH TO DC SUMMARY. THANK YOU. DATE: 05/01, 05/03, 05/08 ATTN: DR. Radha CHUN/ DR. Kristian ROY Please exercise your independent, professional judgment in responding to the clarification form. Please check appropriate box(s): I (concur) with the Nursing Admission Skin Assessment findings as stated below. [ ] Pressure Ulcer: (Stage I: Erythema; Stage II: Partial thickness; Stage III : Full thickness; Stage IV: Necrosis to muscle/bone) [ ] Location: POA: [ ] Yes [ ] No [ ] Unable to determine Stage (I to IV): (Left Right Bilateral N/A ) [ ] Location: POA: [ ] Yes [ ] No [ ] Unable to determine Stage (I to IV): (Left Right Bilateral N/A ) [ ] No pressure ulcer diagnosis [ ] Deep tissue injury [ ] Other diagnosis [ ] Unable to determine In addition, please specify: Present on Admission (POA): [ ] Yes [ ] No [ ] Unable to determine For continuity of documentation, please document condition throughout progress notes and discharge summary. Thank You. CLINICAL INDICATORS - SIGNS / SYMPTOMS / LABS NURSING ADMISSION SKIN ASSESSMENT 04/29: STAGE II PRESSURE ULCER TO R OUTER ANKLE RISK FACTORS: ADVANCED DEMENTIA WHEELCHAIR BOUND TREATMENTS: TURN Q2 HR WAFFLE MATTRESS THANK YOU! Jonelle (This form is maintained as a part of the permanent medical record) 2014 [employer]. All Rights Reserved Jonelle Bruner, RN, BSN [email or web address] Office: [phone] [facility]
--- NOTE | 2018-05-01 11:11 | PRG ---
DATE OF SERVICE: 05/01/2018 SUBJECTIVE: The patient is not talking much. Does not appear in any distress. OBJECTIVE: VITAL SIGNS: Temperature 97.4, pulse 55, respiration 20, O2 sat 97%, and blood pressure 120/71. HEENT: Unremarkable. NECK: No adenopathy or JVD. LUNGS: Clear. CARDIAC: S1 and S2, regular. ABDOMEN: Soft. EXTREMITIES: Left lower extremity edema. LABORATORY DATA: White blood cell count 8.9, hematocrit 39.1, platelet count 175. Sodium 137, potas sium 4, chloride 106, CO2 of 25, BUN 14, creatinine 0.7, glucose 82. ASSESSMENT: Deep vein thrombosis/pulmonary embolism. RECOMMENDATIONS: continue anticoagulation. Of note, INR is of no relevance with the patient o n Eliquis. PLAN: The patient could be discharged to the detention on Eliquis. After day 7, she should be tr ansitioned to 5 mg twice a day instead of 10 mg twice a day. No further recommendations from Pulmona ry standpoint.
[2018-05-01] MEDS: Citalopram 20 MG TAB PO SCH (13:37)
[2018-05-01] MEDS: Apixaban 5 MG TAB PO SCH ×2 (13:37→20:55)
[2018-05-01] MEDS: Levothyroxine Sodium 50 MCG TAB PO SCH (13:38)
[2018-05-01] MEDS: Furosemide 20 MG TAB PO SCH (13:38)
[2018-05-01] MEDS: Acetaminophen 325 MG TAB PO PRN (13:42)
[2018-05-01] MEDS: Amiodarone 200 MG TAB PO SCH ×2 (14:11→14:14)
[2018-05-01] MEDS: Donepezil HCl 10 MG TAB PO SCH (20:55)
--- NOTE | 2018-05-02 06:10 | PDOC.FM ---
- Subjective Subjective: 82 yo female seen this AM. Patient had good night. She denies any chest pain or SOB. Patient is at baseline A&O x2. No acute events overnight. No other complaints. - Objective Vital Signs & Weight: Vital Signs (12 hours) Temp Pulse Resp BP Pulse Ox 05/02/18 04:00 97.5 F L 55 L 18 125/58 L 96 05/01/18 20:00 98 F 53 L 18 121/56 L 97 Weight Admit Weight 74.843 kg Weight 78.471 kg I&O: 04/30/18 05/01/18 05/02/18 06:59 06:59 06:59 Intake Total 1051 2499 480 Balance 1051 2499 480 Result Diagrams: 05/01/18 05:15 05/01/18 05:15 <Rohit Schneider - Last Filed: 05/02/18 08:18> - Objective Vital Signs & Weight: Vital Signs (12 hours) Temp Pulse Resp BP Pulse Ox 05/02/18 07:36 98.0 F 53 L 16 146/70 H 94 L 05/02/18 04:00 97.5 F L 55 L 18 125/58 L 96 Weight Admit Weight 74.843 kg Weight 78.471 kg I&O: 05/01/18 05/02/18 05/03/18 06:59 06:59 06:59 Intake Total 2499 480 Balance 2499 480 Result Diagrams: 05/01/18 05:15 05/01/18 05:15 <Chance Goodman - Last Filed: 05/02/18 11:37> Phys Exam - Physical Examination Constitutional: NAD HEENT: PERRLA, moist MMs Neck: no nodes Respiratory: no wheezing, clear to auscultation bilateral Cardiovascular: no significant murmur Bradycardia Gastrointestinal: soft, non-tender, no distention, positive bowel sounds Musculoskeletal: pulses present Right leg swelling, improved from previous Neurological: non-focal, moves all 4 limbs Lymphatic: no nodes Psychiatric: normal affect Skin: no rash <Rohit Schneider - Last Filed: 05/02/18 08:18> Dx/Plan (1) Pulmonary emboli Code(s): I26.99 - OTHER PULMONARY EMBOLISM WITHOUT ACUTE COR PULMONALE Status : Acute (2) DVT (deep venous thrombosis) Code(s): I82.409 - ACUTE EMBOLISM AND THOMBOS UNSP DEEP VN UNSP LOWER EXTREMITY Status: Acute (3) Afib Code(s): I48.91 - UNSPECIFIED ATRIAL FIBRILLATION Status: Chronic (4) UTI (urinary tract infection) Status: Acute (5) CHF (congestive heart failure) Code(s): I50.9 - HEART FAILURE, UNSPECIFIED Status: Acute (6) Hypothyroid Code(s): E03.9 - HYPOTHYROIDISM, UNSPECIFIED Status: Chronic (7) Hematuria Code(s): R31.9 - HEMATURIA, UNSPECIFIED Status: Acute (8) Dysphagia Code(s): R13.10 - DYSPHAGIA, UNSPECIFIED Status: Acute - Plan Plan: 1. DVT & PE - Lovenox transitioned to Eliquis - Hemodynamically stable at this time. - Continue anticoagulation on discharge 2. UTI - Started on Rocephin 1gm - Urine cultures Proteus - Treatment appropriate per sensitivities - Rocephin d/c because adequate treatment 3. Afib with RVR: - Patient has converted to sinus rhythm, but bradycardia - Amiodarone discontinued 04/30 - Held home diltiazem for now - Cardiology consulted and recommends Amiodarone as outpatient 4. Hypothyroidism - TSH appropriate - Synthroid 5.CHF - BNP 4894 - Echo showed EF 50-55% - Daily weights - Fluid restrict diet 6. Dementia: - Home meds 7. Hematuria - Likely related to anticoagulation and recent infection - Will monitor closely. 8. Dysphagia - Episodes of coughing and possible aspiration - Passed speech evaluation for regular diet - Speech pathologist recommends further follow up. Disposition: Stable, patient can likely be discharged back to the snf today. Will contact PCP. <Rohit Schneider - Last Filed: 05/02/18 08:18> (1) DVT (deep venous thrombosis) Code(s): I82.409 - ACUTE EMBOLISM AND THOMBOS UNSP DEEP VN UNSP LOWER EXTREMITY Status: Acute (2) Pulmonary emboli Code(s): I26.99 - OTHER PULMONARY EMBOLISM WITHOUT ACUTE COR PULMONALE Status : Acute (3) UTI (urinary tract infection) Status: Acute (4) Hypothyroid Code(s): E03.9 - HYPOTHYROIDISM, UNSPECIFIED Status: Chronic (5) Afib Code(s): I48.91 - UNSPECIFIED ATRIAL FIBRILLATION Status: Chronic (6) CHF (congestive heart failure) Code(s): I50.9 - HEART FAILURE, UNSPECIFIED Status: Acute <Chance Goodman - Last Filed: 05/02/18 11:37> Attending Addendum - Attending Addendum Date/Time: 05/02/18 3913 I personally evaluated the patient and discussed the management with Dr. Schneider. I agree with the History, Examination, Assessment and Plan documented above with any addition or exceptions noted below. Patient doing well with no complaints. Her HR is controlled on oral amiodarone, no further pauses or dysrhythmia. Vitals stable and will continue on OAC for her PE. Stable for discharge to snf today. <Chance Goodman - Last Filed: 05/02/18 11:37>
[2018-05-02 07:41] VITALS: TEMP 98
[2018-05-02] MEDS ORDERED: Amiodarone 200 MG TAB PO SCH ×2 (09:45→21:00)
[2018-05-02] MEDS: Apixaban 5 MG TAB PO SCH (10:01)
[2018-05-02] MEDS: Furosemide 20 MG TAB PO SCH (10:02)
[2018-05-02] MEDS: Levothyroxine Sodium 50 MCG TAB PO SCH (10:02)
[2018-05-02] MEDS: Citalopram 20 MG TAB PO SCH (10:02)
[2018-05-02] MEDS: Amiodarone 200 MG TAB PO SCH (10:21)
[2018-05-02 12:37] VITALS: BP 109/54
--- NOTE | 2018-05-02 21:07 | DIS-2 ---
DATE OF ADMISSION: 04/29/2018 DATE OF DISCHARGE: 05/02/2018. RESIDENT: Rohit Schneider MD. ADMITTING ATTENDING: Chance Goodman M.D. DISCHARGE ATTENDING: Chance Goodman M.D. CONSULTATIONS: with Cardiology. PT evaluation and treatment. Speech evaluation and treatment. PROCEDURES: On 04/29/2018, patient underwent a chest x-ray that showed no active intrathoracic disease. On 04/29/2018 patient underwent pelvis x-ray that showed diffuse osteopenia without definitive acute fracture. There are some limitations of the examination due to positioning. Dedicated right hip radiographs are recommended to assess for the right hip fracture as the right hip is held in external rotation during the anterior, posterior evaluation of this pelvis. On 04/29/2018, patient underwent a vascular ultrasound that showed DVT in the right lower extremity. On 04/29/2018, patient underwent a brain CT that showed motion artifact limited study, no evidence of acute large vessel infarction. 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 Mild left maxillary sinus fluid or soft tissue. 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 On 04/30/2018, patient underwent an echocardiogram that showed overall left ventricle function is normal, ejection fraction is visually estimated at 50%-55% , normal right atrium size, moderate mitral regurgitation is present. Moderate aortic regurgitation is noted. Mild tricuspid regurgitation. PRIMARY DIAGNOSES: 1. Pulmonary emboli. 2. Deep vein thrombosis. 3. Atrial fibrillation with RVR, resolved. 4. Urinary tract infection. 5. CHF. 6. Hypothyroidism. 7. Hematuria. 8. Dysphagia. DISCHARGE MEDICATIONS: Lasix 20 mg p.o. daily, Synthroid 50 mcg p.o. daily, ferrous sulfate 325 mg p.o. daily, donepezil 10 mg p.o. at bedtime, Celexa 20 mg p.o. daily, liquid tears 15 mL eyedrops daily, vitamin C 500 mg p.o. daily, potassium chloride 20 mEq p.o. daily, vitamin D3 1000 units p.o. daily, aspirin 81 mg p.o. daily, acetaminophen 650 mg p.o. q.6 hours p.r.n., amiodarone 400 mg p.o. b.i.d. for 2 weeks then 200 mg p.o. b.i.d. for 2 weeks then 200 mg p.o. daily, Eliquis 10 mg p.o. b.i.d. for 5 days and then 2.5 mg p.o. b.i.d. for 3-6 months. DISCONTINUE MEDICATIONS: Diltiazem 120 mg p.o. daily, Megace 400 mg p.o. b.i.d. , acetaminophen 500 mg p.o. daily, Synthroid 50 mcg daily. HISTORY OF PRESENT ILLNESS AND HOSPITAL COURSE: Patient is an 82-year-old female, demented residential patient brought to the ED for right lower extremity swelling starting today. The patient is unable to provide any further history, but denies any current pain. In the ED, the patient was found to have a right lower extremity DVT as well as bilateral PEs and a urinary tract infection found in UA. The patient was also found to be in atrial fibrillation with RVR and was sent to the IMCU for further management. During this hospitalization, the patient had a notable value of white blood cell count of 11.1 on day of admission that trended down to normal range. BNP of 489.4. Troponin I's that were 0.034 on day of admission that trended down to 0.021. TSH of 1.2197. Patient was afebrile during this hospitalization. She had normotensive blood pressures; however, her pulse was pretty labile. She had times where on day of admission she was running in the 120s-150s, atrial fibrillation with RVR. She was given diltiazem 20 mg with conversion at that time; however, she spontaneously would reenter atrial fibrillation with RVR and was started on that diltiazem drip; however, she would not tolerate the diltiazem drip with low blood pressures. She at that time was seen by Cardiology and they recommended amiodarone infusion. She was continued on amiodarone infusion with good control of her atrial fibrillation and remained in sinus rhythm. The patient was then started on oral amiodarone with resolution of her atrial fibrillation; however, she became bradycardic into the 50s and 60s. Her rate has been controlled in 50s and 60s in normal rhythm and rate. The patient also has received 4 doses of Rocephin for a Proteus mirabilis urinary tract infection that was sensitive to ceftriaxone. The patient did not complain of any further symptoms, urinary. On 05/01/2018, nurse did notify the primary team that the patient did have some pink tinged urine likely due to her recent infection and her current anticoagulation doses. That will need to be closely monitored and followed up with us as an outpatient. I had a long discussion with the patient's daughter regarding her overall status and her findings during this hospitalization. She was counseled on the need for long-term management and determination of risks versus benefit ratio of anticoagulation for this condition. The patient's daughter did state that her mother is a DNR and would not like to have any invasive procedures done in the future. This will be a good conversation to have with her primary care physician, Dr. Cody going forward. Otherwise, patient tolerated the hospitalization well and was discharged in appropriate condition. DISPOSITION: Stable. DISCHARGE INSTRUCTIONS: 1. Location: She will be discharged back to the [facility] in [place]. 2. Diet will be a heart healthy diet. 3. Activity will be as tolerated. follow up will be with her primary care physician, Dr. Cody in 3-7 days to further discuss long-term management of her chronic conditions. [facility]
--- NOTE | 2018-05-08 12:07 | PQF ---
TRAVONFRANCISCO RANDALL [id number] CLINICAL DOCUMENTATION IMPROVEMENT CLARIFICATION FORM: ICD-10 Updated PLEASE DO AN ADDENDUM TO THE PROGRESS NOTE WITH ANY DOCUMENTATION UPDATES OR ADDITIONS AND CARRY THROUGH TO DC SUMMARY. THANK YOU. DATE: 05/01 ATTN: DR. Radha CHUN/ DR. Kristian ROY Please exercise your independent, professional judgment in responding to the clarification form. Clinical indicators are provided on the bottom of this form for your review Please check appropriate box(s): ACUTE HEART FAILURE, UNSPECIFIED TYPE: [ ] Systolic / HFrEF [ ] Diastolic / HFpEF [ ] Combined Systolic / Diastolic [ ] Other diagnosis [ ] Unable to determine For continuity of documentation, please document condition throughout progress notes and discharge summary. Thank You. CLINICAL INDICATORS - SIGNS / SYMPTOMS / LABS BNP: 489 ECHO: TECHNICALLY DIFFICULT EF 50-55%, MOD MITRAL REGURGITATION, MOD AORTIC REGURGITATION, MILD TRICUSPID REGURGITATION PHYSICIAN H&P DOCUMENTATION 04/29: ASSESSMENT/PLAN: 6) CHF, UNSPECIFIED, ACUTE ; BNP 489 PHYSICIAN PN 04/30 & : DX/PLAN: 5) CHF, UNSPECIFIED, ACUTE; ECHO - EF 50-55% RISKS: ACUTE B PULMONARY EMBOLISM ACUTE RLE DVT AFIB W/RVR ON ADMIT HTN TREATMENTS: CARDIOLOGY CONSULT ECHO PO LASIX (04/29 - PRESENT) TELEMETRY MONITORING THANK YOU JONELLE (This form is maintained as a part of the permanent medical record) 2014 [employer]. All Rights Reserved Jonelle Bruner RN, BSN [email or web address] Office: [phone] [facility]ENTER[facility]ina
== END 2018-05-02 14:08 | DRG 176 ==
LOC: ERS 00:44 → IMCU/EMU 05:28 → 2NO 04-30 16:57
PROVIDERS: ADMIT Student in an Organized Health Care Education/Training Program; ATTEND Student in an Organized Health Care Education/Training Program
DX: I26.99 Other pulmonary embolism without acute cor pulmonale (principal); I82.4Z1 Acute embolism and thrombosis of unspecified deep veins of right distal lower extremity; N39.0 Urinary tract infection, site not specified; I48.0 Paroxysmal atrial fibrillation; F03.90 Unspecified dementia, unspecified severity, without behavioral disturbance, psychotic disturbance, mood disturbance, and anxiety; E03.9 Hypothyroidism, unspecified; J44.9 Chronic obstructive pulmonary disease, unspecified; R31.9 Hematuria, unspecified; I50.9 Heart failure, unspecified; B96.4 Proteus (mirabilis) (morganii) as the cause of diseases classified elsewhere; I10 Essential (primary) hypertension; F41.9 Anxiety disorder, unspecified; F32.9 Major depressive disorder, single episode, unspecified; M81.0 Age-related osteoporosis without current pathological fracture; R00.1 Bradycardia, unspecified; Z66 Do not resuscitate; Z87.891 Personal history of nicotine dependence; Z79.899 Other long term (current) drug therapy; Z96.651 Presence of right artificial knee joint
CPT/HCPCS: 36415; 51701; 70450; 71045; 71275; 72170; 80053; 80061; 81003; 81015; 82248; 82553; 83735; 83880; 84443; 84484; 85025; 85610; 85730; 87086; 87186; 93005; 93306; 96372; 96374; A4216; A4353; G8978-GP-CN; G8979-GP-CL; G8987-GO-CM; G8988-GO-CM; G8989-GO-CM; G8996-GN-CJ; G8997-GN-CJ; J0282; J0696; J1160; J1650; J7050; J7070

== ENCOUNTER 2018-05-24 15:03 | Inpatient (IN) | payer MEDICARE, MEDICAID ==
[~2018-05-24 15:03] MED LIST: ISOVUE-370 76%-LOCM 1 ML ONE
[2018-05-24 15:38] LABS: #Eosinphils 0.2 thou/uL (0.0-0.7); #Lymphocytes 3.7 thou/uL (1.20-3.40); #Monocytes 0.7 thou/uL (0.11-0.59); #Neutrophils 5.1 thou/uL (1.40-6.50); %Basophils 0.2 % (0.0-1.0); %Eosinophils 2.5 % (0.0-10.0); %Lymphocytes 37.9 % (21.0-51.0); %Monocytes 7.5 % (0.0-10.0); %Neutrophils 51.9 % (42.0-75.0); Hemoglobin 15.1 g/dL (12.0-16.0); Mean Corpuscular HGB CONC 33.1 g/dL (32.0-36.0); Mean Corpuscular Hemoglobin 32.9 pg (27.0-31.0); Mean Corpuscular Volume 99.5 fL (78.0-98.0); Mean Platelet Volume 7.7 fL (7.4-10.4); Platelet Count 205 thou/uL (130-400); RBC Distribution Width 12.5 % (11.5-14.5); Red Blood Cell (RBC) Count 4.57 mill/uL (4.20-5.40); White Blood Cell (WBC) Count 9.9 thou/uL (4.8-10.8)
--- NOTE | 2018-05-24 15:43 | RAD ---
CHEST ONE VIEW PORTABLE: 05/24/18 HISTORY: 82-year-old female with history of chest pain which began approximately two hours ago. COMPARISON: 04/29/18. FINDINGS: There is considerable rotation to the right. Atherosclerosis of the aorta with ectasia. Monitor leads overlie the chest. Arthrosis and degenerative changes are noted of both shoulders. IMPRESSION: No significant acute intrathoracic disease. Atherosclerosis of the aorta with ectasia. Little change from prior study. POS: [facility]
[2018-05-24 15:58] LABS: ALT (SGPT) 22 U/L (8-55); AST (SGOT) 19 U/L (5-34); Albumin 4.2 g/dL (3.4-4.8); Alkaline Phosphatase 59 U/L (40-150); Anion Gap 16 mmol/L (10-20); BUN (Urea Nitrogen) 16 mg/dL (9.8-20.1); Bilirubin, Total 0.3 mg/dL (0.2-1.2); CK (CPK) 75 U/L (29-168); Calc. Creatinine Clearance 0 mL/min (70-130); Calcium 9.2 mg/dL (7.8-10.44); Carbon Dioxide 17 mmol/L (23-31); Chloride 105 mmol/L (98-107); Estimated GFR-MDRD 63; Globulin 3.1 g/dL (2.4-3.5); Glucose 79 mg/dL (83-110); Potassium 4.3 mmol/L (3.5-5.1); Protein, Total 7.3 g/dL (6.0-8.3); Sodium 134 mmol/L (136-145)
[2018-05-24 16:01] LABS: CKMB 2.8 ng/mL (0-6.6); Troponin I Less than 0.010 ng/mL (< 0.028)
[2018-05-24] MEDS ORDERED: HYDROcodone/Acetaminophen 5/325 mg Tablet ONE (17:27)
[2018-05-24] MEDS ORDERED: Enoxaparin Sodium 80 MG/0.8 ML SYRINGE ONE (18:24)
--- NOTE | 2018-05-24 18:43 | CT ---
CTA CHEST WITH 3D VOLUME RENDERIN05/24/18 COMPARISON: 05/09/18 INDICATION: Dyspnea. FINDINGS: There is a thin liner filling defect involving segmental pulmonary arterial branches of the left lowe r lobe. Otherwise, no significant large filling defect of the pulmonary arteries. The thoracic aorta reveals calcification without discrete evidence for aneurysmal dilatation. Interstitial densities of each lung may relate to interstitial lung disease, such as mild pulmonary fibrosis. There is a small hiatal hernia. Scattered osseous degenerative changes. IMPRESSION: There is a tiny filling defect involving segmental branches of the left lower lobe indicative of a ve ry small pulmonary embolus. No large central embolus is demonstrated. Notification of report at 1752 hours, 05/24/18. Code CR POS: [facility]
[2018-05-24] MEDS ORDERED: Diltiazem HCl 125 MG, Admixture Fee 1 EACH in Sodium Chloride 0.9% 100 ML IVPB ONE (18:45)
[2018-05-24 19:10] LABS: Troponin I Less than 0.010 ng/mL (< 0.028)
[2018-05-24] MEDS ORDERED: Ondansetron ODT 4 MG TAB SL PRN (19:28)
[2018-05-24] MEDS ORDERED: Acetaminophen 325 MG TAB PO PRN (19:28)
[2018-05-24] MEDS ORDERED: Ondansetron HCl/PF 4 MG/2 ML Vial IVP PRN (19:28)
[2018-05-24] MEDS ORDERED: Sodium Chloride 0.9% 1,000 ML IV SCH (19:30)
[2018-05-24] MEDS ORDERED: Apixaban 5 MG TAB PO SCH (21:00)
[2018-05-24] MEDS: Donepezil HCl 10 MG TAB PO SCH (21:49)
[2018-05-24] MEDS: Amiodarone 200 MG TAB PO SCH (21:49)
[2018-05-24 22:02] LABS: Troponin I Less than 0.010 ng/mL (< 0.028)
--- NOTE | 2018-05-24 23:49 | PDOC.EVN ---
Attending Addendum - Attending Addendum Date/Time: 05/24/18 9860 I personally evaluated the patient and discussed the management with Dr. Mesa I agree with the History, Examination, Assessment and Plan documented above with any addition or exceptions noted below. See Resident Hx & PE for further details 82 yo female brought in from [place] with non exertional chest pain. Patient s/p recent hospitalization with PE . Patient with Atrial Fibrillation with RVR converted to NSR with diltiazem 10mg IV will admit for observation restart eliquis for ongoing PE treatment. Rec echocardiogram if none recent trend troponins expectant management.
--- NOTE | 2018-05-25 00:44 | PDOC.FPRHP ---
- History of Present Illness Chief Complaint: Chest pain History of Present Illness: 82F with PMH of Afib, hx of PE, CHF, dementia, and hypothyroidism presented to ED with 2 hours of chest pain. It was sharp, 9/10 pain, left upper chest, without inciting event, exacerbated with pressure on chest, not relieved by anything, and had been constant since it started. 2 weeks prior she was admitted and treated inpatient for bilateral PE with anticoagulation. When she arrived at the ER, she went from martínez to afib with rvr. After 20 of dilt, she converted to sinus rhythm. - Allergies/Adverse Reactions Allergies Allergy/AdvReac Type Severity Reaction Status Date / Time No Known Drug Allergies Allergy Verified 05/25/18 01:19 - Home Medications Medication Instructions Recorded Confirmed Type Citalopram [CeleXA] 20 mg PO DAILY 04/29/18 05/25/18 History Donepezil HCl [Aricept] 10 mg PO HS 04/29/18 05/25/18 History Ferrous Sulfate 325 mg PO DAILY 04/29/18 05/25/18 History Furosemide [Lasix] 20 mg PO DAILY 04/29/18 05/25/18 History Levothyroxine Sodium [Synthroid] 50 mcg PO DAILY 04/29/18 05/25/18 History Ascorbate Calcium [Vitamin C] 500 mg PO DAILY 04/30/18 05/25/18 History Aspirin [Aspirin Chewable Tablet] 81 mg PO DAILY 04/30/18 05/25/18 History Cholecalciferol (Vitamin D3) 1,000 unit PO DAILY 04/30/18 05/25/18 History [Vitamin D3] Polyvinyl Alcohol [Liquitears] 15 ml OP DAILY 04/30/18 05/25/18 History Potassium Chloride 20 meq PO DAILY 04/30/18 05/25/18 History Acetaminophen [Tylenol Regular 650 mg PO Q6H PRN tab 05/02/18 05/25/18 Rx Strength] Amiodarone [Cordarone] 200 mg PO BID #14 tab 05/02/18 05/25/18 Rx Apixaban [Eliquis] 10 mg PO BID #10 tablet 05/02/18 05/25/18 Rx - History PMHx: Afib, bilateral PE, hypothyroidism, CHF, anema, dementia, DVT, CHF, gross hematuria, dysphagia, anxiety PSHx: hysterectomy with bilat oopherectomy, R knee hemiarthropathy, R foot, FHx: heart and lung problems, she doesn't know exactly what Social: 67 pack year smoking hx, quit in 2018; no alcohol or drug use - Review of Systems ROS unobtainable: due to mental status (ROS was copeland positive, unable to get clear history from patient because of dementia.) - Vital signs BP 148/92, P 114, R 22, Tmax 98.4, 96% on RA, Wt 76 kg - Physical Exam Constitutional: NAD, other (bed bound) HEENT: normocephalic and atraumatic, PERRLA, normal nasal mucosa Neck: supple, no LAD Heart: RRR, normal S1/S2, no murmurs/rubs/gallops, pulses present, no edema Lungs: CTAB, no respiratory distress, good air movement, other (wheezing present ) Abdomen: soft, non-tender, bowel sounds present Skin: capillary refill <2 seconds Psychiatric: other (poor insight and judgment, memory not intact) FMR H&P: Results - Labs Result Diagrams: 05/25/18 04:44 05/25/18 04:44 Lab results: WBC 9.9 thou/uL (4.8-10.8) 05/24/18 15:29 Hgb 15.1 g/dL (12.0-16.0) 05/24/18 15:29 Hct 45.5 % (36.0-47.0) 05/24/18 15:29 MCV 99.5 fL (78.0-98.0) H 05/24/18 15:29 Plt Count 205 thou/uL (130-400) 05/24/18 15:29 Neutrophils % 51.9 % (42.0-75.0) 05/24/18 15:29 Sodium 134 mmol/L (136-145) L 05/24/18 15:29 Potassium 4.3 mmol/L (3.5-5.1) 05/24/18 15:29 Chloride 105 mmol/L (98-107) 05/24/18 15:29 Carbon Dioxide 17 mmol/L (23-31) L 05/24/18 15:29 BUN 16 mg/dL (9.8-20.1) 05/24/18 15:29 Creatinine 0.86 mg/dL (0.6-1.1) 05/24/18 15:29 Glucose 79 mg/dL (83-110) L 05/24/18 15:29 Calcium 9.2 mg/dL (7.8-10.44) 05/24/18 15:29 Total Bilirubin 0.3 mg/dL (0.2-1.2) 05/24/18 15:29 AST 19 U/L (5-34) 05/24/18 15:29 ALT 22 U/L (8-55) 05/24/18 15:29 Alkaline Phosphatase 59 U/L (40-150) 05/24/18 15:29 Creatine Kinase 75 U/L (29-168) 05/24/18 15:29 CK-MB (CK-2) 2.8 ng/mL (0-6.6) 05/24/18 15:29 B-Natriuretic Peptide 292.1 pg/mL (0-100) H 05/24/18 15:29 Serum Total Protein 7.3 g/dL (6.0-8.3) 05/24/18 15:29 Albumin 4.2 g/dL (3.4-4.8) 05/24/18 15:29 - Radiology Interpretation Chest x-ray Status: image reviewed by me, report reviewed by me (arthrosis and degenerative changes of the shoulder, no acute cardiovascular process) FMR H&P: A/P - Problem List (1) Atrial fibrillation with rapid ventricular response Current Visit: Yes Status: Acute Code(s): I48.91 - UNSPECIFIED ATRIAL FIBRILLATION (2) Dementia Current Visit: Yes Status: Chronic Code(s): F03.90 - UNSPECIFIED DEMENTIA WITHOUT BEHAVIORAL DISTURBANCE (3) Anxiety Current Visit: Yes Status: Chronic Code(s): F41.9 - ANXIETY DISORDER, UNSPECIFIED (4) CHF (congestive heart failure) Current Visit: No Status: Chronic Code(s): I50.9 - HEART FAILURE, UNSPECIFIED (5) Dysphagia Current Visit: No Status: Chronic Code(s): R13.10 - DYSPHAGIA, UNSPECIFIED (6) Pulmonary emboli Current Visit: No Status: Acute Code(s): I26.99 - OTHER PULMONARY EMBOLISM WITHOUT ACUTE COR PULMONALE (7) Hypothyroid Current Visit: No Status: Chronic Code(s): E03.9 - HYPOTHYROIDISM, UNSPECIFIED - Plan 82F with PMH of Afib, hx of PE, CHF, dementia, and hypothyroidism with Atypical chest pain. Atypical Chest pain, possibly 2/2 COPD vs PE vs Afib with RVR -EKG showed Afib with RVR, converted to sinus martínez after diltiazem -CXR wnl -CTA showed tiny filling defect in the LLL. Recent admission for bilateral PEs -Trops negx3, CKMB neg Afib with RVR -After diltiazem conrverted to normal sinus rhythm and bradycardia -Continue apixiban, diltiazem (10 mg) if converts back to Afib with RVR -Continue aspirin PE in LLL -CTA showed tiny filling defect in the LLL. Pt was recently admitted and treated for bilateral PEs - continuing eliquis Dysuria -UA and culture pending Likely COPD -Significant smoking history -Duonebs -May be the cause of her chest pain Constipation/straining -Senna docusate PRN Hypothyroidism -continue levothyroxine Hx CHF preserved ejection fraction -Chronic issue, continue lasix Code status: DNR MPOA is daughter Dr. Jerson Mesa, PGY-1 FMR H&P: Upper Level - Pertinent history 82F presents with 2 hour of chest pain. It is sharp, 9/10 pain, left upper chest , without inciting event, exacerbated with pressure on chest, not relieved by anything, and has been constant since it started. She has previous history of PE treated approximately 2 weeks prior with anticoagulation. When she arrived at the ER, she went from martínez to afib with rvr. After 20 of dilt, she converted to sinus. PMH: HTN, GERD, COPD, hypothyrodism, osteoperosis, PE, DVT, dementia, anxiety Surgeries: Hysterectomy, bilateral oopherectomy, rt knee surg, right foot surg, glaucoma surg. Allergies: NKDA Medication: Lasix 20 QD, sythroid 50 mcg qd, ferrous sulfate 325 qd, donepezil 10 mg hs, celexa 20 mg qd, liquid tears 15ml qd, vitamin c 500 mg qd, KCl 20 mEq qd, amiodadrone 200 mg bid, eliquis 2.5 BID. Social Tobacco abuser, approximately 65 pack year. Social alcohol use. Deny drug use. ROS Gen: Endorse fever, chills, headache dizziness HEENT: Endorses cold, cough, congestion CV: Endorses chest pain, palpitation Resp: Endorse sob, wheezing GI: Endorse generalized abd pain, diarrhea and constipation : Endorses dysuria Derm: Endorses full body itching Neuro: Endorses full body weakness. Psych: Endorses anxiety. - Pertinent findings Gen: NAD HEENT: Normocephalic, moist membrane, CV: RRR with no apparent m/g//r. Currently in sinus Resp: Wheezing on exa GI: Normoactive, not tender to palpation. Derm: No obvious acute lesions Neuro: No focal deficit 4/5 strength in all limbs. Psych: AOx2, not to place. D-dimer: .5 CTA: Subsegmental PE in LLL CXR: No acute changes from previous visit EKG: Currently sinus martínez - Plan Date/Time: 05/25/18 0043 I, [Baldemar Aragon], have evaluated this patient and agree with findings/plan as outlined by mechanical intern resident. Pertinent changes/additions are listed here. 1. A fib with rvr: Currently in sinus following dilt. Admit to telemetry for further monitoring. Consider card consult. Continue amiodarone and elliquis. May explain patient complaint of chest discomfort 2. PE: Patient previous had bilateral PE. This small subsegmental PE may be residual. Patient currently on anticoagulation from previous PE. At this time, opt to continue current treatment. 3. COPD: May explain patient's chest discomfort. Patient ROS is copeland positive so difficult to say if she is in exacerbation. At this time, will provide duoneb and O2. If symptom continue, consider treating as full COPD exacerbation. 4. Dysuria: Will obtain culture and UA. 5. Hx of anemia: Continue ferrous sulfate 6. Hypothyrodism: Continue home med 7. Dementia: Chronic issue. Continue donepezil. 8. Anxiety: Chronic issue. Continue celexa 9. Hx CHF, preserved ejection fraction: Chronic issue. Continue lasix. Attending Addendum - Attending Addendum Date/Time: 05/25/18 0630 I personally evaluated the patient and discussed the management with Dr. Mesa I agree with the History, Examination, Assessment and Plan documented above .
[2018-05-25 01:02] VITALS: BMI 26.4
[2018-05-25] MEDS ORDERED: Senokot S 8.6-50 MG TAB PO PRN (02:33)
[2018-05-25] MEDS: Levothyroxine Sodium 50 MCG TAB PO SCH (05:12)
[2018-05-25 06:02] LABS: #Basophils 0.1 thou/uL (0.0-0.2); #Eosinphils 0.3 thou/uL (0.0-0.7); #Lymphocytes 2.6 thou/uL (1.20-3.40); #Monocytes 0.5 thou/uL (0.11-0.59); #Neutrophils 3.5 thou/uL (1.40-6.50); %Basophils 0.9 % (0.0-1.0); %Eosinophils 3.6 % (0.0-10.0); %Lymphocytes 37.6 % (21.0-51.0); %Monocytes 7.1 % (0.0-10.0); %Neutrophils 50.8 % (42.0-75.0); Mean Corpuscular HGB CONC 33.8 g/dL (32.0-36.0); Mean Corpuscular Hemoglobin 33.1 pg (27.0-31.0); Mean Corpuscular Volume 97.8 fL (78.0-98.0); Mean Platelet Volume 8.2 fL (7.4-10.4); Platelet Count 180 thou/uL (130-400); RBC Distribution Width 12.5 % (11.5-14.5); Red Blood Cell (RBC) Count 3.92 mill/uL (4.20-5.40); White Blood Cell (WBC) Count 6.9 thou/uL (4.8-10.8)
[2018-05-25 06:19] LABS: Anion Gap 18 mmol/L (10-20); BUN (Urea Nitrogen) 11 mg/dL (9.8-20.1); Calc. Creatinine Clearance 66 mL/min (70-130); Calcium 8.5 mg/dL (7.8-10.44); Carbon Dioxide 14 mmol/L (23-31); Chloride 108 mmol/L (98-107); Estimated GFR-MDRD 71; Glucose 72 mg/dL (83-110); Potassium 3.9 mmol/L (3.5-5.1); Sodium 136 mmol/L (136-145)
--- NOTE | 2018-05-25 06:41 | PDOC.FM ---
- Subjective Subjective: No acute events overnight, patient has no complaints - Objective Vital Signs & Weight: Vital Signs (12 hours) Temp Pulse Resp BP Pulse Ox 05/25/18 03:10 97.9 F 59 L 18 110/59 L 96 05/24/18 23:46 97.8 F 64 20 127/57 L 95 05/24/18 20:00 97.8 F 64 20 05/24/18 19:20 98.0 F 56 L 24 H 133/63 97 Weight Weight 77.247 kg I&O: 05/23/18 05/24/18 05/25/18 06:59 06:59 06:59 Intake Total 650 Balance 650 Result Diagrams: 05/25/18 04:44 05/25/18 04:44 <Mara Grace - Last Filed: 05/25/18 12:01> - Objective Vital Signs & Weight: Vital Signs (12 hours) Temp Pulse Resp BP Pulse Ox 05/26/18 12:40 97.8 F 87 16 131/60 96 05/26/18 08:00 97.4 F L 58 L 16 94 L 05/26/18 07:32 97.4 F L 58 L 16 135/70 94 L 05/26/18 04:00 85 148/63 H 05/26/18 03:02 98 F 16 92 L Weight Weight 77.247 kg I&O: 05/25/18 05/26/18 05/27/18 06:59 06:59 06:59 Intake Total 650 200 Balance 650 200 Result Diagrams: 05/26/18 09:07 05/26/18 11:42 <Velasquez Hu - Last Filed: 05/26/18 13:22> Phys Exam - Physical Examination Constitutional: NAD HEENT: moist MMs Respiratory: no wheezing, no rales, clear to auscultation bilateral Deviation from normal: on sacral decubitus ulcers <Mara Grace - Last Filed: 05/25/18 12:01> Dx/Plan (1) Bradycardia Code(s): R00.1 - BRADYCARDIA, UNSPECIFIED Status: Acute (2) Atrial fibrillation with rapid ventricular response Code(s): I48.91 - UNSPECIFIED ATRIAL FIBRILLATION Status: Acute (3) UTI (urinary tract infection) Status: Acute (4) Hypothyroid Code(s): E03.9 - HYPOTHYROIDISM, UNSPECIFIED Status: Chronic (5) Pulmonary emboli Code(s): I26.99 - OTHER PULMONARY EMBOLISM WITHOUT ACUTE COR PULMONALE Status : Acute - Plan Plan: 82 yo F with PMH Afib with RVR admitted for atypical chest pain most likely 2/2 to Afib with RVR 1. Afib with RVR -Converted back and curretntly NSR -Conintue Diltiazem 10mg if converts back to Afib with RVR -Continue tele monitoring: Bradycardia into 50s overnight due to diltiazem but will continue and monitor closely for symptoms & worsening of bradycardia -Continue home amiodarone (rhythm control) and eliquis (anticoagulation) 2. PE, hx of B/L PEs -PE in LLL as seen on CTA on this admission -Continue home eliquis 3. UTI -Prior history of Proteus UTI; +UA, UC pending -Will start on Rocephin 1 g daily 4. Hx of anemia -Continue home ferrous sulfate 5. Hx of Hypothyroidism -Contine home meds -Will order TSH to check 6. Dementia -Continue home donepezil 7. Anxiety -Continue home celexa -Plan to discuss with Dr. Cody use of Celexa due to concern for prolonged QT (also on home amiodarone) 8. CHF -Continue home lasix, monitor for signs of fluid overload 9. COPD -Started duo nebs 10. Constipation -Senokot DNR Dispo: Pending cardiology consult, we kindly appreciate their recommendations. <Mara Grace - Last Filed: 05/25/18 12:01> (1) Atrial fibrillation with rapid ventricular response Code(s): I48.91 - UNSPECIFIED ATRIAL FIBRILLATION Status: Acute (2) Dementia Code(s): F03.90 - UNSPECIFIED DEMENTIA WITHOUT BEHAVIORAL DISTURBANCE Status: Chronic (3) Anxiety Code(s): F41.9 - ANXIETY DISORDER, UNSPECIFIED Status: Chronic (4) CHF (congestive heart failure) Code(s): I50.9 - HEART FAILURE, UNSPECIFIED Status: Chronic (5) Dysphagia Code(s): R13.10 - DYSPHAGIA, UNSPECIFIED Status: Chronic (6) Pulmonary emboli Code(s): I26.99 - OTHER PULMONARY EMBOLISM WITHOUT ACUTE COR PULMONALE Status : Acute (7) Hypothyroid Code(s): E03.9 - HYPOTHYROIDISM, UNSPECIFIED Status: Chronic <Velasquez Hu - Last Filed: 05/26/18 13:22> Attending Addendum - Attending Addendum Date/Time: 05/26/18 8710 I personally evaluated the patient and discussed the management with Dr. Grace I agree with the History, Examination, Assessment and Plan documented above with any addition or exceptions noted below. Appreciate Cardiology recommendations urine C&S pending Rocephin, HX COPD start neb treatments.Concern with Other Rx potentially prolonging QT needs review for appropriateness. <Velasquez Hu - Last Filed: 05/26/18 13:22>
[2018-05-25] MEDS: Ascorbic Acid 500 mg Chewable Tablet PO SCH (08:57)
[2018-05-25] MEDS: Potassium Chloride 20 MEQ TAB PO SCH (08:57)
[2018-05-25] MEDS: Ferrous Sulfate 325 MG TAB PO SCH (08:57)
[2018-05-25] MEDS: Furosemide 20 MG TAB PO SCH (08:58)
[2018-05-25] MEDS: Amiodarone 200 MG TAB PO SCH ×2 (08:58→20:46)
[2018-05-25] MEDS ORDERED: Artificial Tear Sol 15 ML BOT EA EYE PRN (09:00)
[2018-05-25] MEDS ORDERED: Citalopram 20 MG TAB PO SCH (09:00)
[2018-05-25 10:56] LABS: Bilirubin Negative (Negative); Blood, Urine Small (Negative); Clarity CLOUDY (Clear); Glucose, Urine (Dipstick) Negative (Negative); Leukocyte Large (Negative); Nitrite Negative (Negative); Protein, Urine (Dipstick) Negative (Neg-Trace); Specific Gravity, Urine 1.008 (1.002-1.036); Urobilinogen 0.2 mg/dL (0.2-1.0)
[2018-05-25 10:59] LABS: Bacteria/HPF 2+ HPF (None Seen); Hyaline Casts/LPF 0-3 HYALINE CAST LPF (0-3 Hyaline); Pathc Cast-AUWi Flag 0.29 (0-2.49); Squamous Epithelial 0-3 HPF (0-3)
--- NOTE | 2018-05-25 11:10 | PDOC.FM ---
- Objective Vital Signs & Weight: Vital Signs (12 hours) Temp Pulse Resp BP Pulse Ox 05/25/18 07:32 98.4 F 63 18 138/66 99 05/25/18 03:10 97.9 F 59 L 18 110/59 L 96 05/24/18 23:46 97.8 F 64 20 127/57 L 95 Weight Weight 77.247 kg I&O: 05/24/18 05/25/18 05/26/18 06:59 06:59 06:59 Intake Total 650 Balance 650 Result Diagrams: 05/25/18 04:44 05/25/18 04:44 Dx/Plan (1) Atrial fibrillation with rapid ventricular response Code(s): I48.91 - UNSPECIFIED ATRIAL FIBRILLATION Status: Acute (2) Dementia Code(s): F03.90 - UNSPECIFIED DEMENTIA WITHOUT BEHAVIORAL DISTURBANCE Status: Chronic (3) Anxiety Code(s): F41.9 - ANXIETY DISORDER, UNSPECIFIED Status: Chronic (4) CHF (congestive heart failure) Code(s): I50.9 - HEART FAILURE, UNSPECIFIED Status: Chronic (5) Dysphagia Code(s): R13.10 - DYSPHAGIA, UNSPECIFIED Status: Chronic (6) Pulmonary emboli Code(s): I26.99 - OTHER PULMONARY EMBOLISM WITHOUT ACUTE COR PULMONALE Status : Acute (7) Hypothyroid Code(s): E03.9 - HYPOTHYROIDISM, UNSPECIFIED Status: Chronic Attending Addendum - Attending Addendum Date/Time: 05/25/18 1105 I personally evaluated the patient and discussed the management with Dr. Grace I agree with the History, Examination, Assessment and Plan documented in her progress note. Patient with atrial fibrillation RVR converted with low dose IV diltiazem in ER . Patient with history suggestive of COPD questionable exacerbation. Continue eliquis cordarone rec consider discontinuing celexa in respect to prolonging Qt interval. Skin intact Mental status at her baseline. I& O cath for U/A and C&S. Check TSH if no recent results.Appreciate recommendations from Cardiology.
[2018-05-25] MEDS: cefTRIAXone\\ROCEPHIN 1 GM in Sodium Chloride 0.9% 100 ML IVPB SCH (12:18)
[2018-05-25] MEDS: Donepezil HCl 10 MG TAB PO SCH (20:45)
[2018-05-25] MEDS: Apixaban 5 MG TAB PO SCH (20:46)
--- NOTE | 2018-05-26 01:14 | CON ---
DATE OF CONSULTATION: 05/25/2018 HISTORY: Tammi Jean is an 82-year-old white female, [facility] resident from [place], that I evaluated on 04/29/2018. She had been on hospice for some time for severe COPD, but when she stopped smoking 2 packs per day, almost 5 years ago, her COPD improved where she was taken off hospice, but she is still in a [facility] in [place] for dementia. She gets around in her wheelchair. When she was here last month, it was noted that she had right leg edema and was sent to the emergency room. She was found to have DVT in the right leg and chest CTA revealed bilateral pulmonary emboli. She also had paroxysmal atrial fibrillation. She denies any chest discomfort or shortness of breath. She was put on Eliquis 10 mg b.i.d. and then this was to be reduced to 5 mg b.i.d. after 1 week. She also was given amiodarone intravenously, which seemed to control her atrial fibrillation. She was to be discharged on 400 mg b.i.d. x2 weeks, 200 mg b.i.d. x2 weeks and then 200 mg daily. However, medication record from the [facility] showed that after 2 weeks she was only taking 200 mg daily and I am uncertain of the dose prior to that. She now is transferred back due to chest pain. As best I can get from her, this lasts approximately 2 hours, it was pleuritic in nature and very sharp. Cardiac enzymes had been normal. She continues to have intermittent episodes of atrial fibrillation on the monitor. PAST MEDICAL HISTORY: Dementia, hypothyroidism, anemia, history of DVT and bilateral pulmonary emboli, paroxysmal atrial fibrillation. MEDICATIONS: At the [facility] from looking at the [facility] MAR are Lasix 20 q.a.m., aspirin 81 daily, KCl 10 mEq daily, vitamin D3, ferrous sulfate daily, Synthroid 50 mcg daily, amiodarone 200 mg daily (this was started on 05/17. I am uncertain what dose she was taking prior to juaquin)t. On 05/17, she still should have been taking 200 mg b.i.d. and then 2 weeks after that she should have gone to 200 mg daily, Aricept 10 mg daily, Eliquis 2.5 mg b.i.d. (should be 5 mg b.i.d. according to her age, weight, and renal function) , Celexa 20 mg daily. ALLERGIES: None. OPERATIONS: Hysterectomy with bilateral salpingo-oophorectomy, right foot surgery, right knee arthroscopy, glaucoma, colonoscopy, polypectomy. SOCIAL HISTORY: She smoked 2 packs per day, but stopped 4-1/2 years ago. FAMILY HISTORY: Unobtainable. REVIEW OF SYSTEMS: Unobtainable. PHYSICAL EXAMINATION: VITAL SIGNS: Blood pressure 143/65, pulse of 68. HEENT: PERRL. NECK: Supple. CHEST: Clear. CARDIAC: S1, S2 normal, without any S3, S4, or murmurs. Carotid upstrokes normal, without bruits. ABDOMEN: Normal bowel sounds, without tenderness or organomegaly. EXTREMITIES: Revealed 1+ right leg edema. NEUROLOGIC: Grossly intact except for her dementia. LABORATORY DATA: EKG reveals atrial fibrillation with fast ventricular response 153 per minute. Low-voltage EKG shows sinus bradycardia with low voltage. Sodium 136, potassium 3.9, chloride 108, carbon dioxide 14, BUN 11, creatinine 0.77. BNP 292.1. TSH 5.3323. Cardiac enzymes x3 are normal. CBC is fairly unremarkable. IMPRESSION: 1. Pleuritic, noncardiac chest pain. 2. History of deep venous thrombosis and bilateral pulmonary emboli. She currently is underdosed on her Eliquis. The recommended dosage is 10 mg b.i.d. x1 week. Then, the dose should be reduced to 5 mg b.i.d. Her dose should not be further reduced since her weight is over 60 kilograms and her creatinine is normal. After 6 months, then for chronic suppression, the dose may then be reduced to 2.5 mg b.i.d. She also had not been adequately loaded with amiodarone. I am uncertain as to the dose prior to 05/17, but after 05/17, she still should have been on 200 mg b.i.d., but she is only on 200 mg daily. While she was here in the hospital, I will increase her dose to 400 mg b.i.d. to regain control of her atrial fibrillation. When she was discharged, she should go back to 200 mg b.i.d. for another 2 weeks and then to 200 mg daily Once her atrial fibrillation has been better suppressed, she may be discharged. Her chest pain that brought her to the hospital was noncardiac. 3. Dementia. 4. Hypertension. 5. COPD, former smoker. 6. Hypothyroidism. 7. Obesity. MTDD
--- NOTE | 2018-05-26 05:36 | PDOC.FM ---
- Subjective Subjective: Patient had no complaints overnight. Strip showed 5 episodes of afib with RVR overnight since being started on loading dose of Amiodarone lasting 15-45 minutes. Patient denies chest pain, palpitations, dysuria. - Objective MAR Reviewed: Yes Vital Signs & Weight: Vital Signs (12 hours) Temp Pulse Resp BP Pulse Ox 05/26/18 04:00 85 148/63 H 05/26/18 03:02 98 F 16 92 L 05/26/18 00:00 70 129/67 05/25/18 20:00 98.3 F 96 20 127/73 94 L Weight Weight 77.247 kg I&O: 05/24/18 05/25/18 05/26/18 06:59 06:59 06:59 Intake Total 650 Balance 650 Result Diagrams: 05/26/18 09:07 05/26/18 11:42 <Mara Grace - Last Filed: 05/26/18 12:32> - Objective Vital Signs & Weight: Vital Signs (12 hours) Temp Pulse Resp BP Pulse Ox 05/26/18 12:40 97.8 F 87 16 131/60 96 05/26/18 08:00 97.4 F L 58 L 16 94 L 05/26/18 07:32 97.4 F L 58 L 16 135/70 94 L 05/26/18 04:00 85 148/63 H 05/26/18 03:02 98 F 16 92 L Weight Weight 77.247 kg I&O: 05/25/18 05/26/18 05/27/18 06:59 06:59 06:59 Intake Total 650 200 Balance 650 200 Result Diagrams: 05/26/18 09:07 05/26/18 11:42 <Velasquez Hu - Last Filed: 05/26/18 13:30> Phys Exam - Physical Examination Constitutional: NAD A&O x3, sleepy Gastrointestinal: soft, non-tender, no distention Musculoskeletal: no edema Psychiatric: A&O x 3 <Mara Grace - Last Filed: 05/26/18 12:32> Dx/Plan (1) Bradycardia Code(s): R00.1 - BRADYCARDIA, UNSPECIFIED Status: Acute (2) Atrial fibrillation with rapid ventricular response Code(s): I48.91 - UNSPECIFIED ATRIAL FIBRILLATION Status: Acute (3) UTI (urinary tract infection) Status: Acute (4) Hypothyroid Code(s): E03.9 - HYPOTHYROIDISM, UNSPECIFIED Status: Chronic (5) Pulmonary emboli Code(s): I26.99 - OTHER PULMONARY EMBOLISM WITHOUT ACUTE COR PULMONALE Status : Acute - Plan Plan: 82 yo F with PMH Afib with RVR admitted for atypical chest pain most likely 2/2 to Afib with RVR and LLL PE 1. Paroxysmal Afib with RVR -Per (kindly appreciate recs) and [facility] med rec, pt was not at optimized medication dosing for amiodarone and eliquis; now corrected to: --> Eliquis 5mg po TID --> Amiodarone 400mg po BID (to regain control of paroxysmal afib with RVR) -5 episodes of afib with RVR overnight; is aware of situation, would appreciate recommendations 2. UTI; history of +proteus on UCx sensitive to Rocephin -UCx grew gram (-) rods, likely E. Coli or Proteus. Will continue Rocephin until S/S come back 3. Hypothyroidism -Continue home synthroid 4. Hx of Depression/Anxiety -After discussion with Dr. Cody, decided to discontinue Celexa due to worries for QT prolongation (also on amiodarone) -Started on Wellbutrin 150mg po qAM, patient seems more motivated today, agreeing to work with PT. BPs controlled. 5. Dementia -Continue Aricept 6. PE, prior hx of DVT & B/L PEs -Continue eliquis 7. Hx of anemia -Continue ferrous sulfate 8. CHF -Continue home lasix, currently euvolemic on exam -Will continue monitoring fluid status and weight 9. Constipation -BM yesterday, continue senecot 10. Hx of smoking/COPD -94 on RA, continue duo nebs as needed 11. Immobility -PT consult placed yesterday DNR Dispo: Pending recs <Mara Grace - Last Filed: 05/26/18 12:32> (1) Atrial fibrillation with rapid ventricular response Code(s): I48.91 - UNSPECIFIED ATRIAL FIBRILLATION Status: Acute (2) Dementia Code(s): F03.90 - UNSPECIFIED DEMENTIA WITHOUT BEHAVIORAL DISTURBANCE Status: Chronic (3) Anxiety Code(s): F41.9 - ANXIETY DISORDER, UNSPECIFIED Status: Chronic (4) CHF (congestive heart failure) Code(s): I50.9 - HEART FAILURE, UNSPECIFIED Status: Chronic (5) Dysphagia Code(s): R13.10 - DYSPHAGIA, UNSPECIFIED Status: Chronic (6) Pulmonary emboli Code(s): I26.99 - OTHER PULMONARY EMBOLISM WITHOUT ACUTE COR PULMONALE Status : Acute (7) Hypothyroid Code(s): E03.9 - HYPOTHYROIDISM, UNSPECIFIED Status: Chronic <Velasquez Hu - Last Filed: 05/26/18 13:30> Attending Addendum - Attending Addendum Date/Time: 05/26/18 1323 I personally evaluated the patient and discussed the management with Dr. Grace I agree with the History, Examination, Assessment and Plan documented above with any addition or exceptions noted below. Note eliquis dose to BID , patient sating well NAD, at dry weight appears euvolemic currently. Appreciate rec from Cardiology regard Amiodarone loading and maintenance. TSH slight elevated would not rec increased dosing. Urine gram negative rods await sensitivity. Patient with several runs of atrial fibrillitation with RVR continue observation on amiodarone. <Velasquez Hu - Last Filed: 05/26/18 13:30>
[2018-05-26] MEDS: Levothyroxine Sodium 50 MCG TAB PO SCH (05:54)
[2018-05-26] MEDS: Ferrous Sulfate 325 MG TAB PO SCH (07:59)
[2018-05-26] MEDS: Potassium Chloride 20 MEQ TAB PO SCH (07:59)
[2018-05-26] MEDS: Amiodarone 200 MG TAB PO SCH ×2 (08:00→20:20)
[2018-05-26] MEDS: Apixaban 5 MG TAB PO SCH ×2 (08:00→20:20)
[2018-05-26] MEDS: Bupropion 150 MG SR TAB PO SCH (08:01)
[2018-05-26] MEDS: Ascorbic Acid 500 mg Chewable Tablet PO SCH (08:01)
[2018-05-26] MEDS: Furosemide 20 MG TAB PO SCH (08:01)
[2018-05-26 09:20] LABS: #Basophils 0.1 thou/uL (0.0-0.2); #Eosinphils 0.2 thou/uL (0.0-0.7); #Lymphocytes 2.2 thou/uL (1.20-3.40); #Monocytes 0.4 thou/uL (0.11-0.59); #Neutrophils 3.9 thou/uL (1.40-6.50); %Eosinophils 3.3 % (0.0-10.0); %Lymphocytes 32.5 % (21.0-51.0); %Monocytes 6.3 % (0.0-10.0); Hemoglobin 13.9 g/dL (12.0-16.0); Mean Corpuscular HGB CONC 34.3 g/dL (32.0-36.0); Mean Corpuscular Hemoglobin 33.7 pg (27.0-31.0); Mean Platelet Volume 7.6 fL (7.4-10.4); Platelet Count 190 thou/uL (130-400); RBC Distribution Width 12.5 % (11.5-14.5); Red Blood Cell (RBC) Count 4.13 mill/uL (4.20-5.40); White Blood Cell (WBC) Count 6.9 thou/uL (4.8-10.8)
[2018-05-26 12:13] LABS: ALT (SGPT) 17 U/L (8-55); AST (SGOT) 19 U/L (5-34); Alkaline Phosphatase 52 U/L (40-150); Anion Gap 13 mmol/L (10-20); BUN (Urea Nitrogen) 7 mg/dL (9.8-20.1); Bilirubin, Total 0.3 mg/dL (0.2-1.2); Calc. Creatinine Clearance 56 mL/min (70-130); Calcium 9.3 mg/dL (7.8-10.44); Carbon Dioxide 22 mmol/L (23-31); Chloride 108 mmol/L (98-107); Estimated GFR-MDRD 59; Globulin 2.9 g/dL (2.4-3.5); Glucose 89 mg/dL (83-110); Potassium 4.1 mmol/L (3.5-5.1); Protein, Total 6.9 g/dL (6.0-8.3); Sodium 139 mmol/L (136-145)
[2018-05-26] MEDS: cefTRIAXone\\ROCEPHIN 1 GM in Sodium Chloride 0.9% 100 ML IVPB SCH (12:41)
[2018-05-26] MEDS ORDERED: Amiodarone In Dextrose 200 ML IVPB SCH (17:15)
[2018-05-26] MEDS ORDERED: Amiodarone HCl 150 MG in Dextrose 5% in Water 100 ML IVPB SCH (17:30)
[2018-05-26] MEDS ORDERED: Amiodarone HCl 450 MG, Admixture Fee 1 EACH in Dextrose 5% in Water 250 ML IVPB SCH (17:45)
[2018-05-26] MEDS: Donepezil HCl 10 MG TAB PO SCH (20:20)
[2018-05-27 05:07] LABS: #Eosinphils 0.3 thou/uL (0.0-0.7); #Lymphocytes 2.6 thou/uL (1.20-3.40); #Monocytes 0.5 thou/uL (0.11-0.59); %Basophils 0.6 % (0.0-1.0); %Eosinophils 4.2 % (0.0-10.0); %Lymphocytes 35.1 % (21.0-51.0); %Monocytes 6.8 % (0.0-10.0); %Neutrophils 53.3 % (42.0-75.0); Hemoglobin 13.5 g/dL (12.0-16.0); Mean Corpuscular HGB CONC 34.3 g/dL (32.0-36.0); Mean Corpuscular Hemoglobin 33.7 pg (27.0-31.0); Mean Corpuscular Volume 98.3 fL (78.0-98.0); Mean Platelet Volume 8.3 fL (7.4-10.4); Platelet Count 186 thou/uL (130-400); RBC Distribution Width 12.5 % (11.5-14.5); Red Blood Cell (RBC) Count 4.01 mill/uL (4.20-5.40); White Blood Cell (WBC) Count 7.5 thou/uL (4.8-10.8)
--- NOTE | 2018-05-27 05:10 | PDOC.FM ---
- Subjective Subjective: Nurse states pt. did well overnight. Pt. had multiple episodes of HR in the 130s with afib RVR and then rates in the 40s. Pt. denies any chest pain, palpitations, sob. Pt. has no complaints at this time. - Objective MAR Reviewed: Yes Vital Signs & Weight: Vital Signs (12 hours) Temp Pulse Resp BP Pulse Ox 05/27/18 03:30 97.9 F 63 20 129/64 94 L 05/26/18 23:20 98.4 F 88 20 117/87 94 L 05/26/18 20:15 98.4 F 67 20 105/51 L 96 Weight Weight 75.886 kg I&O: 05/25/18 05/26/18 05/27/18 06:59 06:59 06:59 Intake Total 650 200 Balance 650 200 Result Diagrams: 05/27/18 04:12 05/27/18 04:12 <Vinnie Grimm - Last Filed: 05/27/18 07:16> - Objective Vital Signs & Weight: Vital Signs (12 hours) Temp Pulse Pulse Pulse Resp BP BP 05/27/18 20:00 98.3 F 62 20 05/27/18 16:00 98.1 F 117 H 12 05/27/18 14:15 58 L 54 L 137/64 105/51 L 05/27/18 12:15 98.1 F 58 L 16 BP Pulse Ox 05/27/18 20:00 113/84 95 05/27/18 16:00 104/59 L 96 05/27/18 14:15 05/27/18 12:15 122/64 94 L Weight Weight 75.886 kg I&O: 05/26/18 05/27/18 05/28/18 06:59 06:59 06:59 Intake Total 200 400 Balance 200 400 Result Diagrams: 05/27/18 07:20 05/27/18 07:20 <Emely Vann - Last Filed: 05/27/18 21:35> Phys Exam - Physical Examination Constitutional: NAD HEENT: PERRLA, moist MMs Neck: no JVD, full ROM Respiratory: no wheezing, clear to auscultation bilateral Cardiovascular: RRR, no significant murmur, no rub Gastrointestinal: soft, no distention, positive bowel sounds tender to palpation diffusely Musculoskeletal: no edema, pulses present Neurological: moves all 4 limbs Psychiatric: normal affect, A&O x 3 <FrankfortVinnie ospina - Last Filed: 05/27/18 07:16> Dx/Plan (1) Atrial fibrillation with rapid ventricular response Code(s): I48.91 - UNSPECIFIED ATRIAL FIBRILLATION Status: Acute (2) Anxiety Code(s): F41.9 - ANXIETY DISORDER, UNSPECIFIED Status: Chronic (3) Dementia Code(s): F03.90 - UNSPECIFIED DEMENTIA WITHOUT BEHAVIORAL DISTURBANCE Status: Chronic (4) Pulmonary emboli Code(s): I26.99 - OTHER PULMONARY EMBOLISM WITHOUT ACUTE COR PULMONALE Status : Acute (5) UTI (urinary tract infection) Status: Acute (6) CHF (congestive heart failure) Code(s): I50.9 - HEART FAILURE, UNSPECIFIED Status: Chronic (7) Dysphagia Code(s): R13.10 - DYSPHAGIA, UNSPECIFIED Status: Chronic (8) Hypothyroid Code(s): E03.9 - HYPOTHYROIDISM, UNSPECIFIED Status: Chronic - Plan Plan: This is a 82 yo female with a a PMH of afib, hx of PE, CHF, dementia, and hypothyroidism Atypical chest pain -afib with RVR vs. PE. Afib is currently rate controlled. pain is controlled. Pt. has recent admission for PE Afib w/ RVR -Cardiology recommends 400mg amiodorone for control and pt. can be discharged when controlled. Then patient should be on 200mg BID for two weeks and then 200mg daily. Cardiology also increased her eliquis as it was subtherapeutic. PE in LLL -CTA shows tiny filling defect in the LLL. Pt. was recently admitted for bilateral PE. Patient's eliquis will be increased per cardiology Dysuria -Urine culture currently positive for Gram negative rods. Will continue rocephin until sensitivities come back Possible COPD -Pt. has extensive smoking history. CTA shows some changes likely interstitial disease. Constipation -Senna docusate PRN Hypothyroidism -Continue home meds CHFpEF -Chronic, continue lasix Code: DNR Family: none at bedside Prophylaxis: none Disposition: DC in 1-2 days <Vinnie Grimm - Last Filed: 05/27/18 07:16> Attending Addendum - Attending Addendum Date/Time: 08/04/08 2133 I personally evaluated the patient and discussed the management with Dr. Grimm I agree with the History, Examination, Assessment and Plan documented above with any addition or exceptions noted below. A fib with RVR: Patient not appropriately on rhythm controlling agent. Re- loaded. Cards following. Still having episodes overnight. Continue anticoagulation. Eva <Emely Vann - Last Filed: 05/27/18 21:35>
[2018-05-27] MEDS: Levothyroxine Sodium 50 MCG TAB PO SCH (05:16)
[2018-05-27 05:30] LABS: ALT (SGPT) 18 U/L (8-55); AST (SGOT) 16 U/L (5-34); Albumin 3.5 g/dL (3.4-4.8); Alkaline Phosphatase 46 U/L (40-150); Anion Gap 13 mmol/L (10-20); BUN (Urea Nitrogen) 10 mg/dL (9.8-20.1); Bilirubin, Total 0.3 mg/dL (0.2-1.2); Calc. Creatinine Clearance 67 mL/min (70-130); Calcium 8.8 mg/dL (7.8-10.44); Carbon Dioxide 20 mmol/L (23-31); Chloride 108 mmol/L (98-107); Estimated GFR-MDRD 74; Globulin 2.5 g/dL (2.4-3.5); Glucose 87 mg/dL (83-110); Potassium 3.7 mmol/L (3.5-5.1); Sodium 137 mmol/L (136-145)
[2018-05-27 07:30] LABS: Hemoglobin 13.9 g/dL (12.0-16.0); Platelet Count 187 thou/uL (130-400)
[2018-05-27] MEDS: Furosemide 20 MG TAB PO SCH (08:41)
[2018-05-27] MEDS: Ascorbic Acid 500 mg Chewable Tablet PO SCH (08:41)
[2018-05-27] MEDS: Apixaban 5 MG TAB PO SCH ×2 (08:41→20:30)
[2018-05-27] MEDS: Potassium Chloride 20 MEQ TAB PO SCH (08:41)
[2018-05-27] MEDS: Bupropion 150 MG SR TAB PO SCH (08:41)
[2018-05-27] MEDS: Amiodarone 200 MG TAB PO SCH ×2 (08:41→20:30)
[2018-05-27] MEDS: Ferrous Sulfate 325 MG TAB PO SCH (08:42)
[2018-05-27] MEDS: cefTRIAXone\\ROCEPHIN 1 GM in Sodium Chloride 0.9% 100 ML IVPB SCH (12:36)
[2018-05-27] MEDS: Donepezil HCl 10 MG TAB PO SCH (20:30)
[2018-05-28 04:42] LABS: #Basophils 0.1 thou/uL (0.0-0.2); #Eosinphils 0.3 thou/uL (0.0-0.7); #Lymphocytes 2.8 thou/uL (1.20-3.40); #Monocytes 0.7 thou/uL (0.11-0.59); #Neutrophils 4.5 thou/uL (1.40-6.50); %Basophils 0.8 % (0.0-1.0); %Eosinophils 3.4 % (0.0-10.0); %Lymphocytes 34.1 % (21.0-51.0); %Monocytes 8.2 % (0.0-10.0); %Neutrophils 53.5 % (42.0-75.0); Mean Corpuscular HGB CONC 33.3 g/dL (32.0-36.0); Mean Corpuscular Hemoglobin 33.3 pg (27.0-31.0); Mean Platelet Volume 8.5 fL (7.4-10.4); Platelet Count 184 thou/uL (130-400); RBC Distribution Width 12.5 % (11.5-14.5); Red Blood Cell (RBC) Count 4.21 mill/uL (4.20-5.40); White Blood Cell (WBC) Count 8.3 thou/uL (4.8-10.8)
[2018-05-28] MEDS: Levothyroxine Sodium 50 MCG TAB PO SCH (05:13)
[2018-05-28 05:25] LABS: ALT (SGPT) 18 U/L (8-55); AST (SGOT) 18 U/L (5-34); Albumin 3.7 g/dL (3.4-4.8); Alkaline Phosphatase 49 U/L (40-150); Anion Gap 17 mmol/L (10-20); BUN (Urea Nitrogen) 10 mg/dL (9.8-20.1); Bilirubin, Total 0.3 mg/dL (0.2-1.2); Calc. Creatinine Clearance 62 mL/min (70-130); Calcium 9.1 mg/dL (7.8-10.44); Carbon Dioxide 18 mmol/L (23-31); Chloride 106 mmol/L (98-107); Estimated GFR-MDRD 67; Globulin 2.7 g/dL (2.4-3.5); Glucose 78 mg/dL (83-110); Potassium 3.8 mmol/L (3.5-5.1); Protein, Total 6.4 g/dL (6.0-8.3); Sodium 137 mmol/L (136-145)
--- NOTE | 2018-05-28 05:32 | PDOC.FM ---
- Subjective Subjective: Pt. was in and out of afib w/ RVR and sinus rhythm in the 60s. Pt. has no complaints this morning. She denies palpitations, chest pain, sob, or dyspnea. - Objective MAR Reviewed: Yes Vital Signs & Weight: Vital Signs (12 hours) Temp Pulse Resp BP Pulse Ox 05/28/18 04:00 98.3 F 67 18 100/59 L 96 05/28/18 00:00 64 20 113/59 L 93 L 05/27/18 20:00 98.3 F 62 20 113/84 95 Weight Weight 75.75 kg I&O: 05/26/18 05/27/18 05/28/18 06:59 06:59 06:59 Intake Total 200 400 200 Balance 200 400 200 Result Diagrams: 05/28/18 03:54 05/28/18 03:54 Phys Exam - Physical Examination Constitutional: NAD HEENT: PERRLA, moist MMs Neck: no JVD, full ROM Respiratory: no wheezing, clear to auscultation bilateral Cardiovascular: no significant murmur regular rate and rhythm at time of exam Gastrointestinal: soft, no distention, positive bowel sounds Pt. has some diffuse abdominal pain with palpation Musculoskeletal: no edema, pulses present Neurological: normal sensation, moves all 4 limbs Deviation from normal: plesantly demented Skin: normal turgor, cap refill <2 seconds Dx/Plan (1) Atrial fibrillation with rapid ventricular response Code(s): I48.91 - UNSPECIFIED ATRIAL FIBRILLATION Status: Acute (2) Anxiety Code(s): F41.9 - ANXIETY DISORDER, UNSPECIFIED Status: Chronic (3) Dementia Code(s): F03.90 - UNSPECIFIED DEMENTIA WITHOUT BEHAVIORAL DISTURBANCE Status: Chronic (4) Pulmonary emboli Code(s): I26.99 - OTHER PULMONARY EMBOLISM WITHOUT ACUTE COR PULMONALE Status : Acute (5) UTI (urinary tract infection) Status: Acute (6) CHF (congestive heart failure) Code(s): I50.9 - HEART FAILURE, UNSPECIFIED Status: Chronic (7) Dysphagia Code(s): R13.10 - DYSPHAGIA, UNSPECIFIED Status: Chronic (8) Hypothyroid Code(s): E03.9 - HYPOTHYROIDISM, UNSPECIFIED Status: Chronic - Plan Plan: This is an 82 yo female with a PMH of afib, hx of PE, CHF, dementia, and hypothyroidism Atypical chest pain -Afib with RVR vs. PE. Afib has shifted from controlled to RVR through the night. feels that this is her baseline and should be expected for the patient. Afib with RVR -Cardiology recommends 400mg amiodoron bid for control and pt. can be discharged when better controlled. Pt. will then be placed on 200mg bid for two weeks and then 200 daily thereafter. Cardiology also increased her eliquis. PE in LLL -CTA shows tiny filling defect in the LLL. Pt. was recently admitted for bilateral PE. Pt. had a PE in this region and it may be residual. Pt. is on eliquis Dysuria -Culture is positive for Providencia stuartii, sensitive to cephalosporins. Pt will be sent home on po keflex Possible COPD -Pt. has extensive smoking history. CTA showed some changes likely interstitial disease. Constipation -Senna docusate PRN Hypothyroidism -Continue home meds CHFpEF -Chronic, continue lasix Code: DNR Family: None at bedside Prophylaxis: Disposition: DC later today
[2018-05-28] MEDS: Potassium Chloride 20 MEQ TAB PO SCH (08:59)
[2018-05-28] MEDS: Ferrous Sulfate 325 MG TAB PO SCH (08:59)
[2018-05-28] MEDS: Bupropion 150 MG SR TAB PO SCH (09:00)
[2018-05-28] MEDS: Apixaban 5 MG TAB PO SCH (09:00)
[2018-05-28] MEDS: Amiodarone 200 MG TAB PO SCH (09:00)
[2018-05-28] MEDS: Furosemide 20 MG TAB PO SCH (09:00)
[2018-05-28] MEDS: Ascorbic Acid 500 mg Chewable Tablet PO SCH (09:00)
[2018-05-28 11:43] VITALS: TEMP 98.4
[2018-05-28] MEDS: cefTRIAXone\\ROCEPHIN 1 GM in Sodium Chloride 0.9% 100 ML IVPB SCH (11:48)
[2018-05-28 13:53] VITALS: BP 117/81
--- NOTE | 2018-05-29 03:01 | DIS ---
DATE OF ADMISSION: 05/24/2018 DATE OF DISCHARGE: 05/28/2018 RESIDENT: Vinnie Grimm DO ADMITTING ATTENDING: Velasquez Hu MD DISCHARGE ATTENDING: Emely Vann M.D. CONSULTATIONS: Cardiology, Jc Mitchell M.D.. PROCEDURES: Chest x-ray, no significant acute intrathoracic disease, atherosclerosis of the aorta, n o changes from previous study. Chest and thorax CTA, there is a tiny filling defect involving the se gmental branches of the left lower lobe indicative of small pulmonary embolism, no large central embo li demonstrated. PRIMARY DIAGNOSES: Atrial fibrillation with rapid ventricular response, urinary tract infection. SECONDARY DIAGNOSES: History of pulmonary embolism, congestive heart failure, dementia, hypothyroidi sm. : Amiodarone 200 mg b.i.d. for 2 weeks and then 200 mg daily thereafter, Eliquis 5 mg b.i.d. x6 months and then 2.5 mg b.i.d. thereafter. : Eliquis 2.5 mg b.i.d., amiodarone 200 mg daily. HISTORY OF PRESENT ILLNESS AND HOSPITAL COURSE: This is an 82-year-old female with past medical hist ory of atrial fibrillation, PE, CHF, dementia, hypothyroidism, who presented to the ER with 2-hour hi story of chest pain, 9/10 pain in the left upper chest without inciting incident. Pain was exacerbat ed with pressure on the chest, not relieved by anything. The pain was constant since it started. Th e patient was admitted to the hospital 2 weeks prior for treatment of pulmonary embolism. While devon ent was here, she was on inpatient and tele. Telemetry consistently showed bouts of atrial fibrillat ion with RVR followed by sinus rhythm and sinus bradycardia. Patient also had a UTI, diagnosed via U A in the ER, confirmed by culture. The patient was treated for 4 days with IV Rocephin. Dr. Ho gillette, Cardiology, saw the patient while she was in the hospital and comminuted that her amiodarone and E liquis were at the wrong doses and adjusted accordingly reflective of discharge medications. DISPOSITION: Stable. DISCHARGE INSTRUCTIONS: 1. Location: jail. 2. Diet: As tolerated. 3. Activity: As tolerated. 4. Follow up with primary physician in 1-2 weeks.
[2018-05-30] MEDS ORDERED: Apixaban 2.5 MG TAB PO SCH (09:00)
[2018-06-08] MEDS ORDERED: Amiodarone 200 MG TAB PO SCH (09:00)
== END 2018-05-28 16:09 | DRG 309 ==
LOC: ERS 15:03 → 2NO 16:17
PROVIDERS: ADMIT Family Medicine; ATTEND Family Medicine
DX: I48.0 Paroxysmal atrial fibrillation (principal); N39.0 Urinary tract infection, site not specified; Z79.01 Long term (current) use of anticoagulants; Z86.711 Personal history of pulmonary embolism; F41.9 Anxiety disorder, unspecified; F03.90 Unspecified dementia, unspecified severity, without behavioral disturbance, psychotic disturbance, mood disturbance, and anxiety; I11.0 Hypertensive heart disease with heart failure; I50.9 Heart failure, unspecified; Z66 Do not resuscitate; J44.9 Chronic obstructive pulmonary disease, unspecified; Z87.891 Personal history of nicotine dependence; E03.9 Hypothyroidism, unspecified; E66.9 Obesity, unspecified; Z68.26 Body mass index [BMI] 26.0-26.9, adult; R00.2 Palpitations
CPT/HCPCS: 36415; 71045; 71275; 80048; 80053; 81003; 81015; 82550; 82553; 83880; 84439; 84443; 84484; 85025; 85379; 87077; 87086; 87186; 93005; 96361; 96372; 96374; G8978-GP-CM; G8979-GP-CL; J0282; J0696; J1650; J3490; J7050; J7070

== ENCOUNTER 2019-05-28 19:15 | Inpatient (IN) | payer MEDICARE, MEDICAID ==
[2019-05-28] MEDS ORDERED: niCARdipine 20MG In NaCl 0 MG/0 ML BAG ONE (19:32)
[2019-05-28] MEDS ORDERED: Diltiazem 125 MG/25 ML ONE (19:36)
[2019-05-28 19:48] LABS: #Eosinphils 0.3 thou/uL (0.0-0.7); #Lymphocytes 1.8 thou/uL (1.20-3.40); #Monocytes 0.6 thou/uL (0.11-0.59); #Neutrophils 6.6 thou/uL (1.40-6.50); %Basophils 0.4 % (0.0-1.0); %Eosinophils 3.1 % (0.0-10.0); %Lymphocytes 18.8 % (21.0-51.0); %Monocytes 6.7 % (0.0-10.0); Hemoglobin 12.3 g/dL (12.0-16.0); Mean Corpuscular HGB CONC 32.3 g/dL (32.0-36.0); Mean Corpuscular Hemoglobin 32.5 pg (27.0-31.0); Mean Platelet Volume 8.3 fL (7.4-10.4); Platelet Count 214 thou/uL (130-400); RBC Distribution Width 16.1 % (11.5-14.5); Red Blood Cell (RBC) Count 3.79 mill/uL (4.20-5.40); White Blood Cell (WBC) Count 9.3 thou/uL (4.8-10.8)
--- NOTE | 2019-05-28 20:13 | RAD ---
AP CHEST: HISTORY: Chest pain. Shortness of breath. COMPARISON: 05/24/2018 FINDINGS: The lungs appear clear. Heart size is mildly prominent and stable. Vascular markings are upper norm al. Small effusions cannot be excluded, although findings appear stable when compared to the prior s tudy. IMPRESSION: No acute finding. POS: AGW
[2019-05-28 20:17] LABS: ALT (SGPT) 25 U/L (8-55); AST (SGOT) 19 U/L (5-34); Albumin 3.7 g/dL (3.4-4.8); Alkaline Phosphatase 55 U/L (40-150); Anion Gap 15 mmol/L (10-20); BUN (Urea Nitrogen) 38 mg/dL (9.8-20.1); Bilirubin, Total 0.2 mg/dL (0.2-1.2); CK (CPK) 138 U/L (29-168); Calc. Creatinine Clearance 0 mL/min (70-130); Calcium 8.3 mg/dL (7.8-10.44); Carbon Dioxide 17 mmol/L (23-31); Chloride 112 mmol/L (98-107); Estimated GFR-MDRD 64; Globulin 2.5 g/dL (2.4-3.5); Glucose 131 mg/dL (83-110); Potassium 4.6 mmol/L (3.5-5.1); Protein, Total 6.2 g/dL (6.0-8.3); Sodium 139 mmol/L (136-145)
[2019-05-28 21:18] LABS: Bacteria/HPF 4+ HPF (None Seen); Bilirubin Negative (Negative); Blood, Urine Negative (Negative); Clarity Turbid (Clear); Glucose, Urine (Dipstick) Normal (Negative); Leukocyte 75 Leu/uL (Negative); Nitrite 2+ (Negative); Protein, Urine (Dipstick) 10 mg/dL (Neg-Trace); RBC/HPF 0-3 HPF (0-3); Urobilinogen Normal mg/dL (Less than 2); WBC/HPF 0-3 HPF (0-3)
[2019-05-28 21:27] LABS: Renal Epithelial 0-3 HPF (None Seen); Transitional Epithelial 0-3 HPF (None Seen)
--- NOTE | 2019-05-28 22:30 | CT ---
CT angiogram chest 05/28/2019 COMPARISON: 05/24/2018, 04/29/2018 HISTORY: Shortness of breath, past history of pulmonary embolism TECHNIQUE: Axial CT imaging at 2.5 mm intervals through the chest with IV contrast using CT angiogram protocol with coronal and sagittal 3-D reformatted imaging FINDINGS: There is no axillary, or hilar lymphadenopathy. There is a nonspecific mildly enlarged prec arinal lymph node measuring approximately 1.4 cm in transverse dimension. There is atherosclerotic calcification of the aortic arch and the descending thoracic aorta. Limited assessment of the upper abdomen is grossly unremarkable. There is no pleural, pericardial, or mediastinal fluid seen. There is no evidence for acute pulmonary arterial embolism. Secondary to motion artifact, distal pulm onary arteries within the right middle lobe and bilateral lower lobe not optimally assessed. Motion artifact limits detailed assessment of the lung parenchyma. Stable subcentimeter subpleural no dule noted in the right upper lobe anteriorly on image 43, measuring approximately 7 mm in AP dimension. There is extensive coronary arterial calcification. Review of the osseous structures demon strates multilevel degenerative change within the spine. No worrisome lytic or blastic bone lesion. IMPRESSION: Motion limited examination demonstrating no evidence for an acute central pulmonary arter ial embolism.
--- NOTE | 2019-05-28 22:47 | PDOC.FPRHP ---
- History of Present Illness Chief Complaint: CP History of Present Illness: Ms. Jean is a pleasantly demented 83 yoF who presented to the ED after sudden onset of chest pain at 1840 at her long term, [facility]. She states that it came and went, it was midsternal, and only lasted for a short time. She states that she has lingering discomfort. Her symptoms improved with medicine from EMS and she feels better currently. She is unable to give much history as she is A&O x 1 to person. ED Course: EMS noticed Afib w/ RVR pulse in the 130s. Gave 10mg of Diltiazem and her BP went down to 70/40. They started IV fluids and gave 800mL. Gave additional 10mg Diltiazem. In the ED she received 2 additional liters of NS, diltiazem 20mg, and was started on a diltiazem drip of 5mg/hr. - Allergies/Adverse Reactions Allergies Allergy/AdvReac Type Severity Reaction Status Date / Time No Known Drug Allergies Allergy Verified 05/25/18 01:19 - Home Medications Medication Instructions Recorded Confirmed Type Citalopram [CeleXA] 20 mg PO DAILY 04/29/18 05/29/19 History Donepezil HCl [Aricept] 10 mg PO HS 04/29/18 05/29/19 History Ferrous Sulfate 325 mg PO DAILY 04/29/18 05/29/19 History Furosemide [Lasix] 20 mg PO DAILY 04/29/18 05/29/19 History Levothyroxine Sodium [Synthroid] 50 mcg PO DAILY 04/29/18 05/29/19 History Ascorbate Calcium [Vitamin C] 500 mg PO DAILY 04/30/18 05/29/19 History Aspirin Chewable [Aspirin Chewable 81 mg PO DAILY 04/30/18 05/29/19 History Tablet] Cholecalciferol (Vitamin D3) 1,000 unit PO DAILY 04/30/18 05/29/19 History [Vitamin D3] Polyvinyl Alcohol [Liquitears] 15 ml OP Q4HR PRN 04/30/18 05/29/19 History Potassium Chloride 20 meq PO DAILY 04/30/18 05/29/19 History Apixaban [Eliquis] 5 mg PO BID #60 tab 05/28/18 05/29/19 Rx Acetaminophen [Tylenol Regular 1 - 2 mg PO Q6H PRN 05/29/19 05/29/19 History Strength] Bisacodyl [Dulcolax] 5 mg PO BID PRN 05/29/19 05/29/19 History BuPROPion SR [Wellbutrin SR] 100 mg PO DAILY 05/29/19 05/29/19 History Guaifenesin DM 100-10 [Robitussin 5 - 10 ml PO Q6HR PRN 05/29/19 05/29/19 History DM] Ipratropium/Albuterol Sulfate 3 ml INH Q4HR PRN 05/29/19 05/29/19 History [Iprat-Albut 0.5-3(2.5) mg/3 ml] Megestrol Acetate [Megace] 400 mg PO BID 05/29/19 05/29/19 History diphenhydrAMINE HCl [Benadryl 25 mg PO Q6HR PRN 05/29/19 05/29/19 History Allergy] - History PMH: Afib w/ RVR Bilateral PE [2018] DVT Hypothyroid HFpEF [Echo (04/2018) EF 50-55%] COPD Anemia Dementia Dysphagia Anxiety PSH: Hysterectomy w/ BSO R knee R foot Glaucoma FamilyHx Heart and Lung, unsure Social: 65 pack year smoking history, quit in 2018. Denies alcohol or drug use. - Review of Systems ROS unobtainable: due to mental status General: denies: fever/chills Cardiovascular: reports: chest pain - Vital signs BP: 117/52 HR: 114 RR: 38 Tmax:98.6F Pox: 98% on2L Wt:84kg - Physical Exam Constitutional: NAD ( A&O x 2 (person and place, not time)) HEENT: normocephalic and atraumatic, PERRLA, EOMI, grossly normal vision, grossly normal hearing, MMM Neck: supple, FROM Chest: other (tender to palpation, different from earlier chest pain.) Heart: RRR, normal S1/S2, no murmurs/rubs/gallops Lungs: CTAB, no respiratory distress, good air movement, no rales/rhonchi, no wheezing Abdomen: soft, non-tender, bowel sounds present Musculoskeletal: normal structure, normal tone Neurological: no focal deficit, other Skin: no rash/lesions, good turgor Heme/Lymphatic: no unusual bruising or bleeding, no purpura Psychiatric: normal mood and affect (demented) FMR H&P: Results - Labs Result Diagrams: 05/28/19 19:40 05/28/19 19:40 Lab results: WBC 9.3 thou/uL (4.8-10.8) 05/28/19 19:40 Hgb 12.3 g/dL (12.0-16.0) 05/28/19 19:40 Hct 38.2 % (36.0-47.0) 05/28/19 19:40 MCV 101.0 fL (78.0-98.0) H 05/28/19 19:40 Plt Count 214 thou/uL (130-400) 05/28/19 19:40 Neutrophils % 71.0 % (42.0-75.0) 05/28/19 19:40 Sodium 139 mmol/L (136-145) 05/28/19 19:40 Potassium 4.6 mmol/L (3.5-5.1) 05/28/19 19:40 Chloride 112 mmol/L (98-107) H 05/28/19 19:40 Carbon Dioxide 17 mmol/L (23-31) L 05/28/19 19:40 BUN 38 mg/dL (9.8-20.1) H 05/28/19 19:40 Creatinine 0.85 mg/dL (0.6-1.1) 05/28/19 19:40 Glucose 131 mg/dL (83-110) H 05/28/19 19:40 Lactic Acid 1.1 mmol/L (0.5-2.2) 05/28/19 20:46 Calcium 8.3 mg/dL (7.8-10.44) 05/28/19 19:40 Total Bilirubin 0.2 mg/dL (0.2-1.2) 05/28/19 19:40 AST 19 U/L (5-34) 05/28/19 19:40 ALT 25 U/L (8-55) 05/28/19 19:40 Alkaline Phosphatase 55 U/L (40-150) 05/28/19 19:40 Creatine Kinase 138 U/L (29-168) 05/28/19 19:40 B-Natriuretic Peptide 485.7 pg/mL (0-100) H 05/28/19 19:40 Serum Total Protein 6.2 g/dL (6.0-8.3) 05/28/19 19:40 Albumin 3.7 g/dL (3.4-4.8) 05/28/19 19:40 Urine Ketones Negative mg/dL (Negative) 05/28/19 21:01 Urine Blood Negative (Negative) 05/28/19 21: Urine Nitrite 2+ (Negative) A 05/28/19 21:01 Ur Leukocyte Esterase 75 Matthew/uL (Negative) A 05/28/19 21:01 Urine RBC 0-3 HPF (0-3) 05/28/19 21: Urine WBC 0-3 HPF (0-3) 05/28/19 21:01 Ur Squamous Epith Cells 4-6 HPF (0-3) A 05/28/19 21: Urine Bacteria 4+ HPF (None Seen) A 05/28/19 21:01 - EKG Interpretation EKG: Initial ED EKG: Atrial fibrillation with RVR, rate of 129. - Radiology Interpretation Chest x-ray Status: report reviewed by me (No acute finding.) FMR H&P: A/P - Plan 1. Atypical chest pain * Heart score of 4. * Started at rest. Cannot provide much history. * Will discuss with family tomorrow if they desire further workup, such as stress testing and echo. * Will trend troponins, first one has resulted negative. * Will obtain ekg if chest pain recurs. * Currently on Eliquis * CTA negative for PE. * AM fasting lipid profile, mg, phosphorous, and tsh ordered. 2. UTI * "Does not know if she has pain with urination." * Rocephin IV 1g * Urine culture pending 3. Atrial fibrillation with RVR * May be source of chest discomfort. * Currently stable in NSR rate in the 80s-90s with cardizem drip. * Continue diltiazem drip at 5mg/hr. Monitor BP closely. * Has history of A-Fib with RVR on last hospitalization 1 year ago and was discharged home on amiodarone. However on her medication list in [facility] from the long term today, she is not currently taking it. Consider restarting amiodarone tomorrow if blood pressure remains low. Consider consulting cardiology for management. 4. H/o DVT * Continue Eliquis 5. H/o PE * Continue Eliquis 6. Hypothyroidism * Continue home medications, will check TSH in the AM. 7. HFpEF * Last ECHO done in 04/2018. Showed EF Of 50-55% * BNP is 485.7 currently. * Will recheck in tomorrow. Expect it to go up. Will diurese if clinically fluid overloaded. 8. Dementia * continue home medications. 9. Anxiety / Depression * continue home medications. Daughter Dalila Gallego is [facility] [place] [phone] Disposition/LOS: Dispo: inpatient Code: DNAR VTE: SCD FMR H&P: Upper Level - Pertinent history 83 yo f with pmhx dementia, afib, and DVT/PE on eliquis, presents from the CT with chest pain and shortness of breath and found to be in afib with RVR. - Pertinent findings Vitals: HR: 91 BP: 98/60 RR:22 O2sat: 98% 2L NC PE: a&o to self and location CTAB RRR no edema abdomen obese, nontender Labs: UA: +LE, nitrites BNP: 485 trop <.01 EKG: afib rvr, rate 129, no ST changes CXR: no acute process CTA chest: negative for PE - Plan Date/Time: 05/28/19 2245 83 yo f with pmhx of dementia admitted for afib with rvr and suspected UTI. Afib with RVR- -could be 2/2 infection, from suspected UTI vs volume overload with mildly elevated BNP. -CTA chest negative for PE -on dilt drip -will wean and restart home amiodarone po in the am Chestpain- -atypical -Hrt score of 4 -will rule out with serial troponins -we do not think she is a candidate for a stress test, however would recommend discussion with family the am regarding goals of care -mg, phosph, tsh, hba1c, flp UTI- -1g rocephin x1 -urine cx sent Dementia- -a&0x2 -unclear baseline -discuss with family HFpEF- -no edema -possible small effusions on CXR -may need to increase home dose of lasix as bnp is very midly increased Hypothyroidism- -will check a tsh See recruitment internship note for additional chronic conditions. CODE: DNR DVT: Stevie Casiano MD, PGY-3
[2019-05-29] MEDS ORDERED: Diltiazem 125 MG in Sodium Chloride 0.9% 100 ML IVPB SCH (00:15)
[2019-05-29] MEDS ORDERED: cefTRIAXone\\ROCEPHIN 1 GM in Sodium Chloride 0.9% 100 ML IVPB SCH (01:00)
[2019-05-29] MEDS: Sodium Chloride 0.9% 1,000 ML IV SCH ×2 (02:10→15:13)
[2019-05-29] MEDS: Acetaminophen 325 MG TAB PO PRN ×2 (02:11→19:20)
[2019-05-29 04:54] LABS: Cardiac Risk 3.4 (Less than 4.5); Cholesterol 115 mg/dl (< 200 Desired); HDL Cholesterol 34 mg/dL (>60 Neg Risk); LDL Cholesterol, Calculated 68 mg/dL; Magnesium 2.2 mg/dL (1.6-2.6); Phosphorus 2.9 mg/dL (2.3-4.7); Triglycerides 63 mg/dL (Less than 150)
--- NOTE | 2019-05-29 06:27 | PDOC.FM ---
- Subjective Subjective: Pt is A/O x1 at baseline. Spoke with daughter, who is MPOA at bedside and states mom is about her baseline. She does endorse palpitations and mild substernal chest pain and SOB similar to presentation. No n/v, no other pains. Daughter unsure if pt was supposed to be on Amio in the intermediate, pt had not seen a it operations specialist as OP since last admission when she was initially placed on the Amio. - Objective MAR Reviewed: Yes Vital Signs & Weight: Vital Signs (12 hours) Temp Pulse Resp BP Pulse Ox 05/29/19 04:10 97.7 F 95 19 115/60 96 05/29/19 00:51 98.9 F 83 20 121/68 96 Weight Weight 87.685 kg Result Diagrams: 05/28/19 19:40 05/28/19 19:40 EKG Reviewed by me: Yes (Tele: Afib, rate 90s-120s. run of aflutter at 0600, back into afib after) Phys Exam - Physical Examination Constitutional: NAD (pleasant, A/O x1, baseline mentation per daughter.) HEENT: moist MMs Neck: supple Respiratory: no wheezing, no rales, no rhonchi, clear to auscultation bilateral Cardiovascular: no significant murmur Irregularly irregular Gastrointestinal: soft, non-tender, no distention, positive bowel sounds Musculoskeletal: no edema Neurological: non-focal Deviation from normal: A/O x 1, no remote memory, answers questions well Dx/Plan (1) Atrial fibrillation with rapid ventricular response Code(s): I48.91 - UNSPECIFIED ATRIAL FIBRILLATION Status: Chronic (2) UTI (urinary tract infection) Status: Acute (3) Anxiety Code(s): F41.9 - ANXIETY DISORDER, UNSPECIFIED Status: Chronic (4) CHF (congestive heart failure) Code(s): I50.9 - HEART FAILURE, UNSPECIFIED Status: Chronic (5) Dementia Code(s): F03.90 - UNSPECIFIED DEMENTIA WITHOUT BEHAVIORAL DISTURBANCE Status: Chronic (6) Hypothyroid Code(s): E03.9 - HYPOTHYROIDISM, UNSPECIFIED Status: Chronic - Plan Plan: 83yo F with h/o dementia, HFpEF, hypothyroidism who presented with Chest pain and found to be in Afib with RVR. 1. Afib with RVR - Possible source of chest discomfort, on elaine hsuip, rate 90s-120s, will continue to monitor. Run of aflutter overnight. - Could be 2/2 infection from suspected UTI vs volume overload with mildly elevated BNP. - History of afib with RVR on last hospitalization 1 year ago and was discharged home on amio, however list from intermediate states she is not currently taking, will contact PCP for records - Will consult Cards, today for further recs - CTA chest negative for PE 2. Atypical Chest pain - Heart score 4, started at rest, difficult to obtain history 2/2 underlying dementia - Will trend trops and obtain EKG if return of pain. Unlikely candidate for stress, will discuss with family this AM. - Continue home eliquis - CTA neg for PE - TSH, lytes, LP WNL 3. UTI - Difficult to assess sxs due to dementia - UA dirty, UCx pending - Continue rocephin Day 2 - history of recurrent UTI's per daughter, will try to obtain past records and UCx for appropriate abx therapy 4. Dementia - A/O x1, near baseline per daughter. Will monitor. - Continue home meds 5. h/o DVT/PE - continue home eliquis 6. HFpEF - no edema or s/s of acute exacerbation - BNP midly increased but trending down, will continue to monitor - Echo in 04/2018 demonstrated EF 50-55% 7. Hypothyroidism - TSH WNL, continue home levo 8. Anxiety/Depression - continue home meds Diet: HH VTE: Home eliquis Code: DNR Dispo: Pending cards recs and clinical improvement. Anticipate hospitalization 2 -3 days. Addendum - Attending - Attending Attestation Date/Time: 05/29/19 [id number] I personally evaluated the patient and discussed the management with Dr. Momo Miranda. I agree with the History, Examination, Assessment and Plan documented above with any addition or exceptions noted below. Afib/Aflutter- h/o afib but 3.2 second pause and aflutter overnight. On diltiazem drip and HR 90-110 now. Continue. Consult cardiology for further evaluation. Ecoli UTI- on iv rocephin- await cx Chest pain- trop negative. Will discuss how aggressive family wants to get. Most likely secondary to afib with RVR.
[2019-05-29] MEDS ORDERED: Bisacodyl 5 MG TAB PO PRN ×2 (06:37)
[2019-05-29] MEDS ORDERED: Non-Formulary Item 1 EACH (Cholecalciferol (Vitamin D3) [Vitamin D3] 1,000 UNIT) PO SCH (09:00)
[2019-05-29] MEDS ORDERED: Non-Formulary Item 1 EACH (Megestrol Acetate [Megace] 400 MG) PO SCH (09:00)
[2019-05-29] MEDS: Megestrol Acetate 800 MG/20 ML UDCUP PO SCH ×2 (10:31→20:09)
[2019-05-29] MEDS: Levothyroxine Sodium 50 MCG TAB PO SCH (10:32)
[2019-05-29] MEDS: Citalopram 20 MG TAB PO SCH (10:32)
[2019-05-29] MEDS: Apixaban 5 MG TAB PO SCH ×2 (10:32→20:09)
[2019-05-29] MEDS: Aspirin Chewable 81 MG TAB PO SCH (10:32)
[2019-05-29] MEDS: Bupropion 100 MG SR TAB PO SCH (10:33)
[2019-05-29] MEDS: cefTRIAXone\\ROCEPHIN 1 GM in Sodium Chloride 0.9% 100 ML IVPB SCH (10:45)
[2019-05-29] MEDS: Donepezil HCl 10 MG TAB PO SCH (20:09)
[2019-05-29] MEDS ORDERED: Amiodarone 150 MG, Admixture Fee 1 EACH in Dextrose 5% in Water 100 ML IVPB SCH (21:00)
[2019-05-29] MEDS: Amiodarone 450 MG in Dextrose 5% in Water 250 ML IVPB SCH (21:18)
[2019-05-29 21:23] LABS: Platelet Count 175 thou/uL (130-400)
[2019-05-29 21:43] LABS: ALT (SGPT) 42 U/L (8-55); AST (SGOT) 22 U/L (5-34); Albumin 3.4 g/dL (3.4-4.8); Alkaline Phosphatase 33 U/L (40-150); Bilirubin, Direct 0.1 mg/dL (0.1-0.3); Bilirubin, Total 0.2 mg/dL (0.2-1.2); Protein, Total 5.9 g/dL (6.0-8.3)
[2019-05-29 22:06] LABS: Calc. Creatinine Clearance 81 mL/min (70-130); Estimated GFR-MDRD 80; Magnesium 2.3 mg/dL (1.6-2.6); Potassium 4.7 mmol/L (3.5-5.1)
--- NOTE | 2019-05-30 03:46 | CON ---
DATE OF CONSULTATION: HISTORY OF PRESENT ILLNESS: Tammi Jean is an 83-year-old white female, prison resident, that I have evaluated in the past, who is admitted with chest discomfort and atrial fibrillation with fast ventricular response. I initially evaluated her in April 2018. She had been on hospice for some time prior to that for severe COPD , but when she stopped smoking, two packs per day 6 years ago, her COPD improved where she was taken off hospice, but was still in a prison in [place] for dementia. She would get around in her wheelchair. When she was admitted in April 2018, it was noted that she had right leg edema and was sent to the emergency room. She was found to have DVT in the right leg and chest CTA revealed bilateral pulmonary emboli. She also had paroxysmal atrial fibrillation. She denied any chest discomfort or shortness of breath at that time. She was placed on Eliquis 10 mg b.i.d. and then 1 week later this was reduced to 5 mg b.i.d. She also was given amiodarone intravenously which seemed to control her atrial fibrillation. She was discharged on 400 mg b.i.d. x2 weeks, 200 mg b.i.d. x2 weeks, and then 200 mg daily. However, the medication record from the prison at that time showed that after 2 weeks, she is only taking 200 mg qd. and I am uncertain to the doses prior to that. She was again admitted in May 2018 with chest discomfort lasting less than 2 hours, pleuritic in nature and very sharp. Cardiac enzymes were normal. She continued to have intermittent atrial fibrillation on the monitor. It was felt that her loading dose of amiodarone was not completed and she was placed back on 400 mg b.i.d. for 1 week, 200 mg b.i.d. for 2 weeks, and then 200 daily. It was felt that she should be on Eliquis 5 mg b.i.d. for 6 months and then dropped to 2.5 mg b.i.d. for prophylaxis of further DVT and pulmonary emboli. I have not seen her since that time. She now is admitted with chest discomfort which is pleuritic in nature and was found to be in atrial fibrillation with fast ventricular response with rate up to 130. She was given diltiazem 10 mg and her blood pressure dropped to 70/40. She was given intravenous fluids. She received 2 L of normal saline,bolus of diltiazem and started on diltiazem drip 5 mg/hr. She has since converted to sinus rhythm. At present time, she denies any chest discomfort or shortness of breath. PAST MEDICAL HISTORY: Dementia, hypothyroidism, anemia, history of DVT and bilateral pulmonary emboli, paroxysmal atrial fibrillation, severe COPD. MEDICATIONS: 1. Eliquis 5 b.i.d. 2. Aspirin 81 daily. 3. Dulcolax. 4. Wellbutrin 100 daily. 5. Vitamin D3. 6. Celexa 20 mg daily. 7. Benadryl 25 mg q.6 hours p.r.n. 8. Aricept 10 mg at bedtime. 9. Ferrous sulfate 325 daily. 10. Furosemide 20 daily. 11. DuoNeb inhaler q.4 hours p.r.n. 12. Levothyroxine 50 mcg daily. 13. Megace 40 mg b.i.d. 14. Potassium chloride 20 mEq daily. ALLERGIES: NONE. PAST SURGICAL HISTORY: Hysterectomy, bilateral salpingo-oophorectomy, right foot surgery, right knee arthroscopy, glaucoma, colonoscopy and polypectomy. SOCIAL HISTORY: She smoked 2 packs per day, but stopped 5 to 6 years ago. PHYSICAL EXAMINATION: VITAL SIGNS: Blood pressure 121/56, pulse of 55. HEENT: PERRL. NECK: Supple. CHEST: Clear. CARDIAC: S1 and S2 normal without any S3, S4, or murmurs. ABDOMEN: Obese. Normal bowel sounds. No tenderness or organomegaly. EXTREMITIES: Revealed no clubbing, cyanosis, or edema. There is no tenderness. NEUROLOGIC: Grossly intact except for her dementia. LABORATORY DATA: EKG revealed atrial fibrillation with rate of 129 per minute, nonspecific T-wave changes. Hemoglobin 12.3, hematocrit 38.2, white count 9300, platelets 214,000. D-dimer 0.50. Sodium 139, potassium 4.6, chloride 112, carbon dioxide 17, BUN 38, creatinine 0.85. Cholesterol 115, triglycerides 63, HDL 34 , LDL 68. Troponin I is normal. BNP 379.7. TSH is normal IMPRESSION: 1. Pleuritic chest pain, probably non cardiac. 2. History of deep venous thrombosis and bilateral pulmonary emboli. 3. Paroxysmal atrial fibrillation, which on her previous admission could only be suppressed with amiodarone. She is not on amiodarone at the present time and her atrial fibrillation has recurred. 4. Dementia. 5. Hypertension. 6. Chronic obstructive pulmonary disease. 7. Former smoker. 8. Hypothyroidism. 9. Obesity. PLAN: Mrs. Jean has converted back to sinus rhythm and she will be placed on intravenous amiodarone for rapid load and this will be followed by p.o. load to hopefully suppress her atrial fibrillation going forward. We will follow the patient with you. Job ID: [id number] MTDD
[2019-05-30] MEDS ORDERED: Furosemide 40 MG/4 ML VIAL ONE (05:39)
--- NOTE | 2019-05-30 06:06 | PDOC.FM ---
- Subjective Subjective: Early this morning pt began to experience increased respiratory effort and mild respiratory distress. Night team was paged who assessed pt and gave lasix, dunebs, and solumedrol. IVF were d/c'ed, and CXR ordered. Pt responded well to interventions. This morning she was resting in bed and states her breathing was much improved. Still mild SOB and CP with increase WOB but better. Nurse at bedside and agreed with patient. No n/v, fever/chills. - Objective MAR Reviewed: Yes Vital Signs & Weight: Vital Signs (12 hours) Temp Pulse Resp BP Pulse Ox 05/30/19 03:51 96.5 F L 60 20 134/72 95 05/30/19 02:39 99 05/29/19 20:00 97.9 F 60 24 H 134/62 99 Weight Admit Weight 87.685 kg Weight 87.685 kg I&O: 05/28/19 05/29/19 05/30/19 06:59 06:59 06:59 Intake Total 520 1295 Output Total 400 Balance 520 895 Result Diagrams: 05/29/19 21:14 05/29/19 21:14 Radiology Reviewed by me: Yes (CXR - small bibasilar effusions, worsened from CXR on admit) Phys Exam - Physical Examination Resting well, increased WOB, comfortable, speaking in short sentences HEENT: moist MMs Neck: supple Tight, bilateral end-expiratory wheeze, slight basilar crackles, inc WOB Cardiovascular: RRR, no significant murmur, no rub Gastrointestinal: soft, non-tender, no distention, positive bowel sounds Musculoskeletal: no edema Neurological: non-focal Deviation from normal: A/O x 1, but at baseline Dx/Plan (1) Atrial fibrillation with rapid ventricular response Code(s): I48.91 - UNSPECIFIED ATRIAL FIBRILLATION Status: Chronic (2) UTI (urinary tract infection) Status: Acute (3) Anxiety Code(s): F41.9 - ANXIETY DISORDER, UNSPECIFIED Status: Chronic (4) CHF (congestive heart failure) Code(s): I50.9 - HEART FAILURE, UNSPECIFIED Status: Chronic (5) Dementia Code(s): F03.90 - UNSPECIFIED DEMENTIA WITHOUT BEHAVIORAL DISTURBANCE Status: Chronic (6) Hypothyroid Code(s): E03.9 - HYPOTHYROIDISM, UNSPECIFIED Status: Chronic - Plan Plan: 83yo F with h/o dementia, HFpEF, hypothyroidism who presented with Chest pain and found to be in Afib with RVR. 1. Afib with RVR - Possible source of chest discomfort, initially dilt gtt, now on IV amio load to transition to PO. - History of afib with RVR on last hospitalization 1 year ago, discharged home on amio, was not taking at correction - Cards, , consulted, rec IV amio load to transition to PO, apprec recs - CTA chest negative for PE - Continue home eliquis 2. Respiratory distress - Sxs occurring overnight, s/p duonebs, solumedrol, lasix. Sxs improved this morning - CXR - small bibasilar effusions, worsened from admit - Will continue Duonebs, Restarted home lasix - Will monitor closely 3. Atypical Chest pain - Heart score 4, started at rest, difficult to obtain history 2/2 underlying dementia. Poor candidate for stress, CP likely due to #1. - Trops negative. CTA neg for PE. TSH, lytes, LP WNL 4. UTI - Difficult to assess sxs due to dementia - UA dirty, UCx E. Coli, susceptibe to rocephin -> will transition to Cefdinir upon d/c - Continue Rocephin Day 3, deescalate once suscep returned - history of recurrent UTI's per daughter, records reviewed and most recent have been proteus, will continue Rocephin and adjust as suscep return 5. Dementia - A/O x1, near baseline per daughter. Will monitor. - Continue home meds 6. 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 HFpEF - Likely mild exacerbation this morning. diuresed well with lasix. D/c'ed IVF, restarted home lasix. Will monitor. - Echo in 04/2018 demonstrated EF 50-55%. 8. Hypothyroidism - TSH WNL, continue home levo 9. Anxiety/Depression - continue home meds Diet: HH with fluid restriction VTE: Home eliquis Code: DNR Dispo: Pending amio load and transition to PO as well as susceptibilities on E. Coli UTI. Anticipate discharge within next 2 days. Addendum - Attending - Attending Attestation Date/Time: 05/30/19 1973 I personally evaluated the patient and discussed the management with Dr. Momo Miranda I agree with the History, Examination, Assessment and Plan documented above with any addition or exceptions noted below. atypical chest pain this am- not relieved with nitro- trop neg x 2 additional. Most likely this is musculoskeletal related- will give NSAIDS and see if improvement. Discussed further cardiac workup and she declines at this time. respiratory distress overnight- resolved this am after some duonebs. No sign of acute fluid overload. observe on O2 afib with RVR- now in NSR with PACs- on IV amiodarone. Appreciate cardiology input. Ecoli UTI- continue iv rocephin until discharge and transition to po
[2019-05-30] MEDS ORDERED: Magnesium 2 GM/50 ML 2 GM in Premix Bag 1 BAG IVPB SCH (06:15)
[2019-05-30 06:17] LABS: Actual Bicarbonate (HCO3a) 18.7 mEq/L (22-28); Base Excess (BEa) -6.8 mEq/L (-2.0 to +3.0); CO2 Tension 37.6 mmHg (35.0-45.0); Calcium, Ionized 1.13 mmol/L (1.12-1.30); Carboxyhemoglobin (COHb) 0.8 gm% (0.0-3.0); Hemoglobin (Hb) 12.9 g/dL (12.0-16.0); O2 Tension (PaO2) 238.1 mmHg (> 60.0); Potassium - ABG Lab 4.03 mmol/L (3.70-5.30); pH, Arterial 7.32 (7.35-7.45)
[2019-05-30 06:18] LABS: Puncture Site L BRACHIAL
[2019-05-30] MEDS ORDERED: Bacteriostatic Water 30 ML VIAL FS PRN (06:30)
[2019-05-30] MEDS ORDERED: methylPREDNISolone Sod Succ/PF 125 MG/2 ML VIAL IVP SCH (06:30)
[2019-05-30] MEDS: Amiodarone 450 MG in Dextrose 5% in Water 250 ML IVPB SCH ×2 (06:34→21:48)
--- NOTE | 2019-05-30 06:39 | PDOC.EVN ---
Event Note - Event Note Event Note: @ 3757 received page that Ms. Jean was having increasing shortness of breath / respiratory distress. Went to evaluate. She was tachypneic, 30 RPM, hypertensive in the 180s systolic, pulse was in the 80s. Breath sounds were decreased bilaterally with diffuse wheezing. Could not auscultate crackles. She was complaining of difficulty breathing and was in apparent distress. Ordered stat duoneb, 40mg IV lasix, CXR, and ABG. Then ordered 2gm mag sulfate and 125mg solumedrol. She has a 65pack year smoking history and likely COPD. She has not been receiving DuoNebs during her stay so far and has been receiving 75mL/hr NS. Suspect elevated volume status. ABG results did not show hypoxia or hypercapnia. Will d/c fluids and schedule duonebs for today. Need to reassess volume status throughout the day and consider restarting home lasix.
[2019-05-30] MEDS: Sodium Chloride 0.9% 1,000 ML IV SCH (06:41)
--- NOTE | 2019-05-30 07:56 | RAD ---
XR Chest 1 View Portable HISTORY: Respiratory distress COMPARISON: 05/28/2019 FINDINGS: The heart size is normal. There are mild bibasilar atelectatic changes and accompanying sma ll effusions. No pneumothoraces are seen.
[2019-05-30] MEDS ORDERED: Nitroglycerin 50 MG/250 ML BOT 0 ML ONE (09:29)
[2019-05-30] MEDS ORDERED: Nitroglycerin 0.4 MG TAB (25 Tab Bottle) SL PRN (09:30)
[2019-05-30] MEDS: Nitroglycerin 0.4 MG TAB (25 Tab Bottle) ONE ×3 (09:31→09:40)
[2019-05-30] MEDS: Citalopram 20 MG TAB PO SCH (09:51)
[2019-05-30] MEDS: Aspirin Chewable 81 MG TAB PO SCH (09:51)
[2019-05-30] MEDS: Apixaban 5 MG TAB PO SCH ×2 (09:51→19:52)
[2019-05-30] MEDS: Megestrol Acetate 800 MG/20 ML UDCUP PO SCH ×2 (09:51→19:51)
[2019-05-30] MEDS: Bupropion 100 MG SR TAB PO SCH (09:51)
[2019-05-30] MEDS: Levothyroxine Sodium 50 MCG TAB PO SCH (09:51)
[2019-05-30] MEDS ORDERED: Calcium Carbonate 500 MG ChewTAB PO PRN (11:34)
[2019-05-30] MEDS: cefTRIAXone\\ROCEPHIN 1 GM in Sodium Chloride 0.9% 100 ML IVPB SCH (11:47)
--- NOTE | 2019-05-30 16:29 | EKG ---
Test Reason : Blood Pressure : / mmHG Vent. Rate : 069 BPM Atrial Rate : 069 BPM P-R Int : 182 ms QRS Dur : 064 ms QT Int : 466 ms P-R-T Axes : 044 -09 -17 degrees QTc Int : 499 ms Sinus rhythm with Premature atrial complexes Low voltage QRS Nonspecific ST and T wave abnormality Prolonged QT Abnormal ECG When compared with ECG of 28-MAY-2019 19:36, (Unconfirmed) Significant changes have occurred Confirmed by ROEL FALLON, SKate ([id number]) on 05/30/2019 4:29:11 PM Referred By: KAJAL Confirmed By:DR. Arabella SEVILLA MD
[2019-05-30 18:30] LABS: Troponin I Less than 0.010 ng/mL (< 0.028)
[2019-05-30] MEDS: Acetaminophen 325 MG TAB PO PRN (19:11)
[2019-05-30] MEDS: Donepezil HCl 10 MG TAB PO SCH (19:52)
--- NOTE | 2019-05-31 05:52 | PDOC.FM ---
- Subjective Subjective: No acute events overnight. Patient reports no complaints, only that she hasn't slept very well. On 3 L O2, states her breathing feels better today. - Objective MAR Reviewed: Yes Vital Signs & Weight: Vital Signs (12 hours) Temp Pulse Resp BP Pulse Ox 05/31/19 04:00 97.6 F 69 18 112/56 L 99 05/31/19 00:00 98.2 F 75 18 130/60 98 05/30/19 22:29 71 16 99 05/30/19 20:00 98.4 F 91 20 136/64 98 05/30/19 19:16 84 20 99 Weight Admit Weight 87.685 kg Weight 87.685 kg I&O: 05/29/19 05/30/19 05/31/19 06:59 06:59 06:59 Intake Total 520 2180 800.4 Output Total 1250 2800 Balance 520 930 -1999.6 Result Diagrams: 05/29/19 21:14 05/29/19 21:14 Phys Exam - Physical Examination Constitutional: NAD Respiratory: clear to auscultation bilateral Cardiovascular: RRR, no significant murmur (no sacral edema, appears euvolemic) Musculoskeletal: no edema, pulses present (Radial 2+) Psychiatric: normal affect Dx/Plan (1) Atrial fibrillation with rapid ventricular response Code(s): I48.91 - UNSPECIFIED ATRIAL FIBRILLATION Status: Chronic (2) (HFpEF) heart failure with preserved ejection fraction Code(s): I50.30 - UNSPECIFIED DIASTOLIC (CONGESTIVE) HEART FAILURE Status: Acute (3) UTI (urinary tract infection) Status: Acute (4) Dementia Code(s): F03.90 - UNSPECIFIED DEMENTIA WITHOUT BEHAVIORAL DISTURBANCE Status: Chronic (5) Hypothyroid Code(s): E03.9 - HYPOTHYROIDISM, UNSPECIFIED Status: Chronic - Plan Plan: 83yo F with h/o dementia, HFpEF, hypothyroidism who presented with Chest pain and found to be in Afib with RVR. 1. Afib with RVR - on IV amio load to transition to PO - History of afib with RVR: Rx amio, not taking at [facility] - Cardiology Consult: apprec recs - Continue home eliquis, SCDs on in bed. 2. Respiratory distress - Duonebs prn. Continue home lasix. - Will monitor closely - Not on oxygen at baseline. Wean today to O2 sat >92%. 3. Atypical Chest pain - Heart score 4 - Trops negative x3. CTA neg for PE. TSH, lytes WNL 4. UTI - UCx E. Coli, Resistant to Cipro/levo, give IV rocephin this AM (day 3), transition to PO cefdinir to start tomorrow. 5. Dementia - A/O x1, near baseline per daughter. Will monitor. - Continue home meds 6. 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 HFpEF - Monitor. - Echo in 04/2018 demonstrated EF 50-55%. 8. Hypothyroidism - continue home levo 9. Anxiety/Depression - continue home meds Diet: HH with fluid restriction VTE: Home eliquis Code: DNR Dispo: PO meds today, possible d/c to [facility] Addendum - Attending - Attending Attestation Date/Time: 05/31/19 9781 I personally evaluated the patient and discussed the management with Dr. Whitehead. I agree with the History, Examination, Assessment and Plan documented above with any addition or exceptions noted below. Patient overall doing well. Her HR has been stable. She is to start PO Amiodarone today. Will discuss with cardiology if any other recommendations, but otherwise is medically stable and may work to d/c back to her [facility] today if that is a possibility.
[2019-05-31] MEDS: Bupropion 100 MG SR TAB PO SCH (08:53)
[2019-05-31] MEDS: Furosemide 20 MG TAB PO SCH (08:53)
[2019-05-31] MEDS: Amiodarone 200 MG TAB PO SCH ×2 (08:54→19:27)
[2019-05-31] MEDS: Apixaban 5 MG TAB PO SCH ×2 (08:54→19:27)
[2019-05-31] MEDS: Levothyroxine Sodium 50 MCG TAB PO SCH (08:54)
[2019-05-31] MEDS: Aspirin Chewable 81 MG TAB PO SCH (08:54)
[2019-05-31] MEDS: Citalopram 20 MG TAB PO SCH (08:54)
[2019-05-31] MEDS: Megestrol Acetate 800 MG/20 ML UDCUP PO SCH ×2 (08:55→19:27)
[2019-05-31] MEDS: cefTRIAXone\\ROCEPHIN 1 GM in Sodium Chloride 0.9% 100 ML IVPB SCH (10:44)
[2019-05-31] MEDS: Amiodarone 450 MG in Dextrose 5% in Water 250 ML IVPB SCH (15:26)
--- NOTE | 2019-05-31 16:11 | PDOC.CTH ---
Cardiology Progress Note - Subjective No new complaints. She is in rapid afib again and her amiodarone drip was restarted. No more chest pain. - Objective Vital Signs Temp Pulse Resp BP Pulse Ox 05/31/19 13:00 97.6 F 147 H 18 123/72 96 05/31/19 08:00 98 05/31/19 07:51 98 05/31/19 07:48 61 12 05/31/19 07:43 98.6 F 61 16 123/58 L 99 Admit Weight 193 lb 5 oz Weight 192 lb 4.8 oz 05/30/19 05/31/19 06/01/19 06:59 06:59 06:59 Intake Total 2180 1250.4 360 Output Total 1250 3600 Balance 930 -2349.6 360 - Physical Examination General/Neuro: NAD Neck: no JVD present Lungs: CTA, unlabored respirations Heart: other: (Irreg irreg) Abdomen: NT/ND Extremities: other: (no edema) - Telemetry Telemetry Rhythm: Afib HR 140's. - Labs Result Diagrams: 05/29/19 21:14 05/29/19 21:14 Troponin/CKMB Troponin I Less than 0.010 ng/mL (< 0.028) 05/30/19 18:00 - Assessment/Plan 1. Paroxysmal Afib currently in RVR 2. Hx of DVT/PE's. 3. Dementia 4. COPD PLAn: - Continue amiodarone drip. - Will give one dose IV digoxin - Eliquis for stroke prophylaxis.
[2019-05-31] MEDS ORDERED: Digoxin 0.5 MG/2 ML AMP SLOW IVP SCH (16:15)
[2019-05-31] MEDS: Donepezil HCl 10 MG TAB PO SCH (19:27)
[2019-06-01] MEDS: Amiodarone 450 MG in Dextrose 5% in Water 250 ML IVPB SCH ×2 (03:39→19:45)
--- NOTE | 2019-06-01 06:02 | PDOC.FM ---
- Subjective Subjective: Patient back in a-fib w/ RVR yesterday AM. Cardiology continued amiodarone drip and gave 1 dose digoxin. Continuing eliquis. Overnight patient in 110-120s in a- fib. Occasionally in 130-140 bpm range. Otherwise, patient resting comfortably on 2 L O2. SCDs on. - Objective MAR Reviewed: Yes Vital Signs & Weight: Vital Signs (12 hours) Temp Pulse Resp BP Pulse Ox 06/01/19 05:00 97.8 F 100 18 110/69 95 06/01/19 02:44 93 14 98 06/01/19 01:00 120 H 18 132/77 97 05/31/19 22:32 101 H 14 98 05/31/19 20:37 97.6 F 140 H 18 137/62 98 05/31/19 18:18 122 H 18 97 Weight Admit Weight 87.685 kg Weight 86.273 kg I&O: 05/30/19 05/31/19 06/01/19 06:59 06:59 06:59 Intake Total 2180 1250.4 1570 Output Total 1250 3600 2100 Balance 930 -2349.6 -530 Result Diagrams: 05/29/19 21:14 05/29/19 21:14 Phys Exam - Physical Examination Constitutional: NAD Respiratory: clear to auscultation bilateral Cardiovascular: no significant murmur, irregular Gastrointestinal: soft, non-tender Musculoskeletal: no edema Psychiatric: normal affect Dx/Plan (1) Atrial fibrillation with rapid ventricular response Code(s): I48.91 - UNSPECIFIED ATRIAL FIBRILLATION Status: Chronic (2) (HFpEF) heart failure with preserved ejection fraction Code(s): I50.30 - UNSPECIFIED DIASTOLIC (CONGESTIVE) HEART FAILURE Status: Acute (3) UTI (urinary tract infection) Status: Acute (4) Dementia Code(s): F03.90 - UNSPECIFIED DEMENTIA WITHOUT BEHAVIORAL DISTURBANCE Status: Chronic (5) Hypothyroid Code(s): E03.9 - HYPOTHYROIDISM, UNSPECIFIED Status: Chronic - Plan Plan: 83yo F with h/o dementia, HFpEF, hypothyroidism who presented with Chest pain and found to be in Afib with RVR. 1. Afib with RVR, Paroxysmal a-fib - On IV amiodarone. Continue telemetry. - Cardiology Consult: apprec recs - Continue home eliquis, SCDs on in bed. 2. Respiratory distress - Duonebs prn. Continue home lasix. - Will monitor closely - Not on oxygen at baseline. Wean O2 sat >92%. 3. Atypical Chest pain - Resolved. Heart score 4 4. UTI - UCx E. Coli, Resistant to Cipro/levo. - IV rocephin (day 4 today) - transition to PO cefdinir on d/c 5. Dementia - A/O x1, near baseline per daughter. Will monitor. - Continue home meds 6. 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 HFpEF - Monitor. - Echo in 04/2018 demonstrated EF 50-55%. 8. Hypothyroidism - continue home levo 9. Anxiety/Depression - continue home meds Diet: HH with fluid restriction VTE: Home eliquis Code: DNR Dispo: Inpatient Addendum - Attending - Attending Attestation Date/Time: 06/01/19 8004 I personally evaluated the patient and discussed the management with Dr. Whitehead. I agree with the History, Examination, Assessment and Plan documented above with any addition or exceptions noted below. Patient here for Afib with RVR. She was doing well yesterday with plans for d/c and then had recurrence of RVR. She now continues to bounce in and out of that status s/p Digoxin by Cardiology yesterday. Awaiting further recs from them regarding mgmt. She continues on IV amiodarone. She denies complaints. Continues on treatment for UTI. Dispo back to [facility] once she is stable for d/c.
[2019-06-01] MEDS: Apixaban 5 MG TAB PO SCH ×2 (09:15→20:33)
[2019-06-01] MEDS: Amiodarone 200 MG TAB PO SCH (09:15)
[2019-06-01] MEDS: Furosemide 20 MG TAB PO SCH (09:16)
[2019-06-01] MEDS: Megestrol Acetate 800 MG/20 ML UDCUP PO SCH ×2 (09:16→20:33)
[2019-06-01] MEDS: cefTRIAXone\\ROCEPHIN 1 GM in Sodium Chloride 0.9% 100 ML IVPB SCH (09:16)
[2019-06-01] MEDS: Levothyroxine Sodium 50 MCG TAB PO SCH (09:16)
[2019-06-01] MEDS: Bupropion 100 MG SR TAB PO SCH (09:16)
[2019-06-01] MEDS: Aspirin Chewable 81 MG TAB PO SCH (09:16)
[2019-06-01] MEDS: Citalopram 20 MG TAB PO SCH (09:16)
--- NOTE | 2019-06-01 17:35 | PDOC.CTH ---
Cardiology Progress Note - Subjective She is a little more sleepy today but arouses. Her rate is better controlled. - Objective Vital Signs Temp Pulse Resp BP Pulse Ox 06/01/19 16:36 98.6 F 118 H 16 126/59 L 95 06/01/19 14:28 78 20 98 06/01/19 13:00 97.6 F 117 H 16 125/70 99 06/01/19 10:43 94 12 99 06/01/19 09:00 97.8 F 120 H 18 146/106 H 96 06/01/19 07:16 104 H 20 98 Admit Weight 193 lb 5 oz Weight 190 lb 3.2 oz 05/31/19 06/01/19 06/02/19 06:59 06:59 06:59 Intake Total 1250.4 1570 118 Output Total 3600 2100 400 Balance -2349.6 -530 -282 - Physical Examination General/Neuro: alert & oriented x3, NAD Neck: no JVD present Lungs: CTA, unlabored respirations Heart: other: (Irreg irreg) Abdomen: NT/ND - Telemetry Telemetry Rhythm: Afib HR 80-110 - Labs Result Diagrams: 05/29/19 21:14 05/29/19 21:14 Troponin/CKMB Troponin I Less than 0.010 ng/mL (< 0.028) 05/30/19 18:00 - Assessment/Plan 1. Paroxysmal Afib currently in RVR 2. Hx of DVT/PE's. 3. Dementia 4. COPD PLAn: - Continue amiodarone drip. - Will add PO diltiazem. - Eliquis for stroke prophylaxis. - One dose IV lasix today. - Blood work in AM.
[2019-06-01] MEDS ORDERED: Furosemide 40 MG/4 ML VIAL SLOW IVP SCH (17:45)
[2019-06-01] MEDS: Diltiazem HCl SR 60 mg Capsule PO SCH (20:33)
[2019-06-01] MEDS: Donepezil HCl 10 MG TAB PO SCH (20:33)
--- NOTE | 2019-06-02 05:15 | PDOC.FM ---
- Subjective Subjective: Patient continues to be in A-fib w/ RVR. Cardiology continued Amiodarone drip and started PO Diltiazem on 06/01, also recommended continuing Eliquis. Overnight patient in average HR 120s in a-fib (high 144 on exam this morning). Otherwise, patient resting comfortably on 2 L O2. No complaints voiced this morning. Denies chest pain, sob, lightheaded/dizziness. - Objective MAR Reviewed: Yes Vital Signs & Weight: Vital Signs (12 hours) Temp Pulse Pulse Pulse Resp BP BP 06/02/19 04:25 97.5 F L 105 H 18 06/02/19 02:48 101 H 16 06/01/19 22:46 123 H 18 06/01/19 19:35 99.3 F 107 H 18 06/01/19 19:11 136 H 130 H 126/71 134/58 L 06/01/19 18:33 118 H 22 H BP Pulse Ox 06/02/19 04:25 123/69 98 06/02/19 02:48 96 06/01/19 22:46 97 06/01/19 19:35 108/68 97 06/01/19 19:11 06/01/19 18:33 98 Weight Admit Weight 87.685 kg Weight 86.273 kg I&O: 05/31/19 06/01/19 06/02/19 06:59 06:59 06:59 Intake Total 1250.4 1570 118 Output Total 3600 2100 1400 Balance -2349.6 -530 -1282 Result Diagrams: 05/29/19 21:14 06/02/19 05:48 Phys Exam - Physical Examination Constitutional: NAD HEENT: moist MMs Neck: no JVD, supple Respiratory: no wheezing, no rhonchi, clear to auscultation bilateral Cardiovascular: RRR, no significant murmur Gastrointestinal: soft, non-tender, no distention, positive bowel sounds Musculoskeletal: pulses present 1+ edema in bilateral lower extremities Neurological: normal sensation Psychiatric: normal affect Deviation from normal: alert & oriented to person only Skin: no rash, normal turgor Dx/Plan (1) (HFpEF) heart failure with preserved ejection fraction Code(s): I50.30 - UNSPECIFIED DIASTOLIC (CONGESTIVE) HEART FAILURE Status: Chronic Qualifiers: Heart failure chronicity: chronic Qualified Code(s): I50.32 - Chronic diastolic (congestive) heart failure (2) UTI (urinary tract infection) Status: Acute Qualifiers: Urinary tract infection type: acute cystitis Hematuria presence: without hematuria Qualified Code(s): N30.00 - Acute cystitis without hematuria (3) Atrial fibrillation with rapid ventricular response Code(s): I48.91 - UNSPECIFIED ATRIAL FIBRILLATION Status: Acute (4) Dementia Code(s): F03.90 - UNSPECIFIED DEMENTIA WITHOUT BEHAVIORAL DISTURBANCE Status: Chronic Qualifiers: Dementia type: unspecified type Dementia behavioral disturbance: without behavioral disturbance Qualified Code(s): F03.90 - Unspecified dementia without behavioral disturbance (5) Hypothyroid Code(s): E03.9 - HYPOTHYROIDISM, UNSPECIFIED Status: Chronic Qualifiers: Hypothyroidism type: unspecified Qualified Code(s): E03.9 - Hypothyroidism , unspecified - Plan Plan: 83yo F with h/o dementia, HFpEF, hypothyroidism who presented with Chest pain and found to be in Afib with RVR. 1. Afib with RVR, Paroxysmal a-fib - Continue IV amiodarone drip, per Cardio recs. Continue telemetry. - Cardiology Consult (Percy): rec. adding on PO Diltiazem - Continue home eliquis, SCDs on in bed - Consider adding on Metoprolol for better rate control, await further recs from Cardiology 2. Respiratory distress - Duonebs prn. Continue home lasix. - Will monitor closely. Currently on O2 @ 2L - Not usually on oxygen at baseline. Wean O2 today, maintain sat >92%. 3. Atypical Chest pain - Resolved. Heart score 4 4. UTI - UCx E. Coli, Resistant to Cipro/levo. - IV rocephin given x 4 days, stopped on 06/01 5. Dementia - A/O x1, near baseline per daughter (MPOA) - Will monitor & Continue home meds 6. 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 HFpEF - Echo in 04/2018 demonstrated EF 50-55%. 8. Hypothyroidism - continue home levothyroxine 9. Anxiety/Depression - continue home meds Diet: HH with fluid restriction VTE: Home eliquis Code: DNR Dispo: Inpatient, awaiting discharge back to [facility] once stable. Addendum - Attending - Attending Attestation Date/Time: 06/02/19 1372 I personally evaluated the patient and discussed the management with Dr. Villatoro. I agree with the History, Examination, Assessment and Plan documented above with any addition or exceptions noted below. Patient overall stable. Continues to have breakthrough RVR on amiodarone drip. She is now on PO Dilt and anticipate escalating that today. Cardiology on board. Once her HR is controlled she should be stable for discharge as she is otherwise at baseline.
[2019-06-02 06:44] LABS: Anion Gap 12 mmol/L (10-20); BUN (Urea Nitrogen) 27 mg/dL (9.8-20.1); Calc. Creatinine Clearance 58 mL/min (70-130); Calcium 8.6 mg/dL (7.8-10.44); Carbon Dioxide 27 mmol/L (23-31); Chloride 102 mmol/L (98-107); Estimated GFR-MDRD 55; Glucose 83 mg/dL (83-110); Potassium 3.7 mmol/L (3.5-5.1); Sodium 137 mmol/L (136-145)
[2019-06-02] MEDS ORDERED: Digoxin 0.5 MG/2 ML AMP SLOW IVP SCH (08:45)
[2019-06-02] MEDS: Apixaban 5 MG TAB PO SCH ×2 (09:53→21:44)
[2019-06-02] MEDS: Megestrol Acetate 800 MG/20 ML UDCUP PO SCH ×2 (09:53→21:44)
[2019-06-02] MEDS: Diltiazem HCl SR 60 mg Capsule PO SCH ×2 (09:53→21:44)
[2019-06-02] MEDS: Levothyroxine Sodium 50 MCG TAB PO SCH (09:53)
[2019-06-02] MEDS: Citalopram 20 MG TAB PO SCH (09:53)
[2019-06-02] MEDS: Furosemide 20 MG TAB PO SCH (09:54)
[2019-06-02] MEDS: Bupropion 100 MG SR TAB PO SCH (09:54)
[2019-06-02] MEDS: Aspirin Chewable 81 MG TAB PO SCH (09:54)
[2019-06-02] MEDS: Amiodarone 450 MG in Dextrose 5% in Water 250 ML IVPB SCH (14:32)
[2019-06-02] MEDS: Donepezil HCl 10 MG TAB PO SCH (21:44)
--- NOTE | 2019-06-03 06:16 | PDOC.FM ---
- Subjective Subjective: Patient continues to be in A-fib w/ RVR. She has a run in 120s yesterday afternoon, but has majority had HR <120 in past 24 hours. Cardiology has not seen her yet today. Nursing staff weaned patient's O2 from 2L to 1L yesterday and patient resting comfortably on 1L O2 this morning. No complaints voiced this morning. Does admit to feeling sob. Denies chest pain, n/v, lightheaded/ dizziness. - Objective Vital Signs & Weight: Vital Signs (12 hours) Temp Pulse Resp BP Pulse Ox 06/03/19 03:14 96.4 F L 60 18 107/66 98 06/03/19 02:48 103 H 18 95 06/02/19 22:36 77 16 96 06/02/19 20:30 97.7 F 110 H 20 136/61 94 L 06/02/19 18:35 57 L 18 97 Weight Admit Weight 87.685 kg Weight 85.332 kg I&O: 06/01/19 06/02/19 06/03/19 06:59 06:59 06:59 Intake Total 0220 882 4929.4 Output Total 2100 1675 1540 Balance -530 -1223 -424.6 Result Diagrams: 05/29/19 21:14 06/02/19 05:48 Phys Exam - Physical Examination Constitutional: NAD HEENT: moist MMs EOMI Neck: no JVD, supple Respiratory: no rhonchi, clear to auscultation bilateral Cardiovascular: RRR, no significant murmur Gastrointestinal: soft, non-tender, positive bowel sounds Musculoskeletal: pulses present 2+ edema in bilateral lower extremities Psychiatric: normal affect Deviation from normal: Alert, oriented to person and place Skin: no rash, normal turgor Dx/Plan (1) (HFpEF) heart failure with preserved ejection fraction Code(s): I50.30 - UNSPECIFIED DIASTOLIC (CONGESTIVE) HEART FAILURE Status: Chronic Qualifiers: Heart failure chronicity: chronic Qualified Code(s): I50.32 - Chronic diastolic (congestive) heart failure (2) UTI (urinary tract infection) Status: Acute Qualifiers: Urinary tract infection type: acute cystitis Hematuria presence: without hematuria Qualified Code(s): N30.00 - Acute cystitis without hematuria (3) Atrial fibrillation with rapid ventricular response Code(s): I48.91 - UNSPECIFIED ATRIAL FIBRILLATION Status: Acute (4) Dementia Code(s): F03.90 - UNSPECIFIED DEMENTIA WITHOUT BEHAVIORAL DISTURBANCE Status: Chronic Qualifiers: Dementia type: unspecified type Dementia behavioral disturbance: without behavioral disturbance Qualified Code(s): F03.90 - Unspecified dementia without behavioral disturbance (5) Hypothyroid Code(s): E03.9 - HYPOTHYROIDISM, UNSPECIFIED Status: Chronic Qualifiers: Hypothyroidism type: unspecified Qualified Code(s): E03.9 - Hypothyroidism , unspecified - Plan Plan: 83yo F with h/o dementia, HFpEF, hypothyroidism who presented with Chest pain and found to be in Afib with RVR. 1. Afib with RVR, Paroxysmal a-fib - Continue IV amiodarone drip, per Cardio recs. Continue telemetry. - Cardiology Consult (Percy): PO Diltiazem 60 mg BID started 06/01--will increase to 90 mg BID starting this morning at 0900 - Continue home eliquis, SCDs on in bed - await further recs from Cardiology 2. Respiratory distress - Duonebs prn. Continue home lasix. - Will monitor closely. Currently on O2 @ 1L - Not usually on oxygen at baseline. Continue to try to wean O2 today, maintain sat >92%. 3. Atypical Chest pain - Resolved. Heart score 4 4. UTI - UCx E. Coli, Resistant to Cipro/levo. - IV rocephin given x 4 days, stopped on 06/01 5. Dementia - A/O x1, near baseline per daughter (MPOA) - Will monitor & Continue home meds 6. 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 HFpEF - Echo in 04/2018 demonstrated EF 50-55%. 8. Hypothyroidism - continue home levothyroxine 9. Anxiety/Depression - continue home meds Diet: HH with fluid restriction VTE: Home eliquis Code: DNR Dispo: Inpatient, awaiting discharge back to [facility] once stable. Addendum - Attending - Attending Attestation Date/Time: 06/03/19 0952 I personally evaluated the patient and discussed the management with Dr. Villatoro. I agree with the History, Examination, Assessment and Plan documented above with any addition or exceptions noted below. Patient overall stable. Continues to have elevated HR. We are increasing her PO Dilt, she continues on Amio IV. Await further recs from cardiology.
[2019-06-03] MEDS: Apixaban 5 MG TAB PO SCH ×2 (09:06→22:37)
[2019-06-03] MEDS: Diltiazem HCl SR 60 mg Capsule PO SCH (09:06)
[2019-06-03] MEDS: Megestrol Acetate 800 MG/20 ML UDCUP PO SCH ×2 (09:06→22:37)
[2019-06-03] MEDS: Aspirin Chewable 81 MG TAB PO SCH (09:06)
[2019-06-03] MEDS: Furosemide 20 MG TAB PO SCH (09:06)
[2019-06-03] MEDS: Bupropion 100 MG SR TAB PO SCH (09:06)
[2019-06-03] MEDS: Citalopram 20 MG TAB PO SCH (09:06)
[2019-06-03] MEDS: Levothyroxine Sodium 50 MCG TAB PO SCH (09:06)
[2019-06-03] MEDS: Amiodarone 450 MG in Dextrose 5% in Water 250 ML IVPB SCH (09:50)
[2019-06-03] MEDS: Donepezil HCl 10 MG TAB PO SCH (22:37)
[2019-06-03] MEDS: Diltiazem HCl SR 90 mg Capsule PO SCH (22:37)
[2019-06-04] MEDS: Amiodarone 450 MG in Dextrose 5% in Water 250 ML IVPB SCH (03:33)
--- NOTE | 2019-06-04 05:17 | PDOC.FM ---
- Subjective Subjective: Patient resting comfortably this morning. Voices no complaints. Alert and oriented to person & situation only. Telemetry nurse reports that she is still in Afib, HR in 80s to 100s overnight. Cardiology is taking her for CHENCHO/Ablation this morning. - Objective Vital Signs & Weight: Vital Signs (12 hours) Temp Pulse Resp BP Pulse Ox 06/04/19 04:00 97.5 F L 117 H 20 120/74 95 06/04/19 02:29 119 H 16 97 06/03/19 22:43 119 H 20 97 06/03/19 20:00 97.7 F 140 H 20 118/80 97 06/03/19 19:09 110 H 24 H 96 Weight Admit Weight 87.685 kg Weight 84.935 kg I&O: 06/02/19 06/03/19 06/04/19 06:59 06:59 06:59 Intake Total 452 1499.4 Output Total 1675 2440 Balance -1223 -940.6 Result Diagrams: 05/29/19 21:14 06/02/19 05:48 Phys Exam - Physical Examination Constitutional: NAD HEENT: moist MMs, sclera anicteric Neck: no JVD, supple Respiratory: no wheezing, no rhonchi, clear to auscultation bilateral Cardiovascular: RRR, no significant murmur Gastrointestinal: soft, non-tender, no distention, positive bowel sounds Musculoskeletal: no edema, pulses present Neurological: normal sensation Psychiatric: normal affect Deviation from normal: Alert, oriented to person only Skin: normal turgor Deviation from normal: red, warm skin along inner right arm near where IV previously infilatrated Dx/Plan (1) (HFpEF) heart failure with preserved ejection fraction Code(s): I50.30 - UNSPECIFIED DIASTOLIC (CONGESTIVE) HEART FAILURE Status: Chronic Qualifiers: Heart failure chronicity: chronic Qualified Code(s): I50.32 - Chronic diastolic (congestive) heart failure (2) UTI (urinary tract infection) Status: Acute Qualifiers: Urinary tract infection type: acute cystitis Hematuria presence: without hematuria Qualified Code(s): N30.00 - Acute cystitis without hematuria (3) Atrial fibrillation with rapid ventricular response Code(s): I48.91 - UNSPECIFIED ATRIAL FIBRILLATION Status: Acute (4) Dementia Code(s): F03.90 - UNSPECIFIED DEMENTIA WITHOUT BEHAVIORAL DISTURBANCE Status: Chronic Qualifiers: Dementia type: unspecified type Dementia behavioral disturbance: without behavioral disturbance Qualified Code(s): F03.90 - Unspecified dementia without behavioral disturbance (5) Hypothyroid Code(s): E03.9 - HYPOTHYROIDISM, UNSPECIFIED Status: Chronic Qualifiers: Hypothyroidism type: unspecified Qualified Code(s): E03.9 - Hypothyroidism , unspecified - Plan Plan: 83yo F with h/o dementia, HFpEF, hypothyroidism who presented with Chest pain and found to be in Afib with RVR. 1. Afib with RVR, Paroxysmal a-fib - Continue IV amiodarone drip, per Cardio recs. Continue telemetry. - Cardiology Consult (Percy): PO Diltiazem 60 mg BID started 06/01, increased to 90 mg BID starting 06/03 - Continue home eliquis, SCDs on in bed - await further recs from Cardiology--Stephen has seen but no note yet, will be taking her for CHENCHO/Ablation this morning - her peripheral line went bad yesterday, so midline was placed by ER nurse yesterday morning 2. Respiratory distress - Duonebs prn. Continue home lasix. - Will monitor closely. Currently on Room Air as of last night - Not usually on oxygen at baseline. Continue to monitor O2 sat, maintain sat > 92%. 3. Atypical Chest pain - Resolved. Heart score 4 4. UTI - UCx E. Coli, Resistant to Cipro/levo. - IV rocephin given x 4 days, stopped on 06/01 5. Dementia - A/O x1, near baseline per daughter (MPOA) - Will monitor & Continue home meds 6. 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 HFpEF - Echo in 04/2018 demonstrated EF 50-55%. 8. Hypothyroidism - continue home levothyroxine 9. Anxiety/Depression - continue home meds Diet: HH with fluid restriction VTE: Home eliquis Code: DNR Dispo: Inpatient, awaiting discharge back to [facility] once stable. Awaiting Cardiology to see patient. Addendum - Attending - Attending Attestation Date/Time: 06/04/19 8473 I personally evaluated the patient and discussed the management with Dr. monterroso. I agree with the History, Examination, Assessment and Plan documented above with any addition or exceptions noted below. Patient back in NSR after cardioversion this morning. Overall stable. Awaiting further cardiology recs regarding her Afib. Otherwise chronic conditions are stable.
[2019-06-04] MEDS ORDERED: PROPOFOL 20 ML ONE (08:35)
[2019-06-04] MEDS ORDERED: Amiodarone 200 MG TAB PO SCH (09:30)
--- NOTE | 2019-06-04 11:17 | OP ---
DATE OF PROCEDURE: 06/04/2019 PROCEDURE PERFORMED: Transesophageal echocardiogram. INDICATION: An 83-year-old woman with paroxysmal atrial fibrillation. The patient was taken to the PACU. The was sedated by Anesthesiology. A transesophageal probe was placed into the distal esophagus and stomach. Echocardiographic images were obtained. FINDINGS: 1. The left ventricle was mildly dilated. 2. Left atrial enlargement. 3. Structurally normal aortic valve. 4. Mild mitral regurgitation. 5. Mild tricuspid regurgitation. 6. No thrombus noted in the left atrium or left atrial appendage. 7. Atherosclerotic debris in the descending aorta. Job ID: [id number]
[2019-06-04] MEDS: Diltiazem HCl SR 90 mg Capsule PO SCH (12:20)
[2019-06-04] MEDS: Aspirin Chewable 81 MG TAB PO SCH (12:21)
[2019-06-04] MEDS: Furosemide 20 MG TAB PO SCH (12:21)
[2019-06-04] MEDS: Bupropion 100 MG SR TAB PO SCH (12:21)
[2019-06-04] MEDS: Citalopram 20 MG TAB PO SCH (12:21)
[2019-06-04] MEDS: Apixaban 5 MG TAB PO SCH ×2 (12:21→21:01)
[2019-06-04] MEDS: Levothyroxine Sodium 50 MCG TAB PO SCH (12:21)
[2019-06-04] MEDS: Megestrol Acetate 800 MG/20 ML UDCUP PO SCH ×2 (12:22→21:01)
[2019-06-04] MEDS: Amiodarone 200 MG TAB PO SCH ×2 (15:27→21:00)
[2019-06-04] MEDS: Acetaminophen 325 MG TAB PO PRN (15:27)
[2019-06-04] MEDS: Donepezil HCl 10 MG TAB PO SCH (21:01)
--- NOTE | 2019-06-05 05:26 | PDOC.FM ---
- Subjective Subjective: Patient had CHENCHO & Cardioversion performed yesterday. Patient's daughter states that the powder blender and pourer told her the patient required 3 shocks before ablation was successful. Cardiology discontinue the Amio drip and started PO Amiodarone 400 mg TID. Also discontinued Diltiazem. Telemetry nurse states patient has been in junctional rhythm with HR in 50s-60s. Patient's daughter was concerned about the patient's right forearm being red and warm. She was told this is due to the IV infiltration that occurred on 06/03 and that it will self-resolve with warm compress. Last night the residents were notified that the patient had a burn on her right thigh from hot water leaking onto her leg from the warm compress that had been applied. Patient is otherwise doing well this morning. Complains of some right arm and right leg pain. Otherwise voices no complaints. - Objective Vital Signs & Weight: Vital Signs (12 hours) Temp Pulse Resp BP Pulse Ox 06/05/19 03:35 98.0 F 54 L 18 150/74 H 96 06/05/19 02:16 51 L 20 96 06/04/19 22:22 95 16 97 06/04/19 20:00 93 L 06/04/19 19:50 98.1 F 59 L 20 132/70 93 L 06/04/19 18:14 51 L 18 97 Weight Admit Weight 87.685 kg Weight 85.275 kg I&O: 06/03/19 06/04/19 06/05/19 06:59 06:59 06:59 Intake Total 1499.4 258.7 800 Output Total 2440 900 650 Balance -940.6 -641.3 150 Result Diagrams: 05/29/19 21:14 06/02/19 05:48 Phys Exam - Physical Examination Constitutional: NAD HEENT: moist MMs, sclera anicteric Neck: no JVD, supple Respiratory: no wheezing, no rhonchi, clear to auscultation bilateral Cardiovascular: RRR, no significant murmur Gastrointestinal: soft, non-tender, positive bowel sounds Musculoskeletal: pulses present 1+ nonpitting edema in lower extremities Neurological: normal sensation Psychiatric: normal affect Deviation from normal: Alert, oriented to person only Deviation from normal: 3x2 cm bullae filled with clear yellow fluid present on right upper leg -: with surrounding erythema, some weeping areas. Arm erythematous & warm Dx/Plan (1) (HFpEF) heart failure with preserved ejection fraction Code(s): I50.30 - UNSPECIFIED DIASTOLIC (CONGESTIVE) HEART FAILURE Status: Chronic Qualifiers: Heart failure chronicity: chronic Qualified Code(s): I50.32 - Chronic diastolic (congestive) heart failure (2) UTI (urinary tract infection) Status: Acute Qualifiers: Urinary tract infection type: acute cystitis Hematuria presence: without hematuria Qualified Code(s): N30.00 - Acute cystitis without hematuria (3) Atrial fibrillation with rapid ventricular response Code(s): I48.91 - UNSPECIFIED ATRIAL FIBRILLATION Status: Acute (4) Dementia Code(s): F03.90 - UNSPECIFIED DEMENTIA WITHOUT BEHAVIORAL DISTURBANCE Status: Chronic Qualifiers: Dementia type: unspecified type Dementia behavioral disturbance: without behavioral disturbance Qualified Code(s): F03.90 - Unspecified dementia without behavioral disturbance (5) Hypothyroid Code(s): E03.9 - HYPOTHYROIDISM, UNSPECIFIED Status: Chronic Qualifiers: Hypothyroidism type: unspecified Qualified Code(s): E03.9 - Hypothyroidism , unspecified - Plan Plan: 83yo F with h/o dementia, HFpEF, hypothyroidism who presented with Chest pain and found to be in Afib with RVR. 1. Afib with RVR, Paroxysmal a-fib - IV amiodarone drip & Diltiazem discontinued 06/04, per Cardio recs. Continue telemetry. - Cardiology Consult (Percy): PO Diltiazem 60 mg BID started 06/01, increased to 90 mg BID starting 06/03--discontinued 06/04 - Continue home eliquis, SCDs on in bed - await further recs from Cardiology--had CHENCHO & Cardioversion completed 06/04, await note from Cardio for further recs - her peripheral line went bad 06/03 so midline was placed by ER nurse later on - no events overnight, patient currently HR 50s-60s 2. Respiratory distress - Duonebs prn. Continue home lasix. - Will monitor closely. Currently on Room Air as of night of 06/03 - Not usually on oxygen at baseline. Continue to monitor O2 sat, maintain sat > 92%. 3. Atypical Chest pain - Resolved. Heart score 4 4. UTI - UCx E. Coli, Resistant to Cipro/levo. - IV rocephin given x 4 days, stopped on 06/01 5. Dementia - A/O x1, near baseline per daughter (MPOA) - Will monitor & Continue home meds 6. 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 HFpEF - Echo in 04/2018 demonstrated EF 50-55%. 8. Hypothyroidism - continue home levothyroxine 9. Anxiety/Depression - continue home meds 10. Phlebitis of Right Arm--New -likely due to infiltration of IV site on 06/03 -apply warm compresses to site -continue to monitor -patient additionally has burn on right leg where water from warm compress leaked onto her leg Diet: with fluid restriction VTE: Home eliquis Code: DNR Dispo: Inpatient, awaiting discharge back to [facility] once stable. Awaiting Cardiology to see patient. Addendum - Attending - Attending Attestation Date/Time: 06/05/19 1450 I personally evaluated the patient and discussed the management with Dr. Villatoro. I agree with the History, Examination, Assessment and Plan documented above with any addition or exceptions noted below. Patient doing well. HR stable through the night. She has been cleared by cardiology for discharge and will work to get her back to [place] today.
[2019-06-05] MEDS: Levothyroxine Sodium 50 MCG TAB PO SCH (08:57)
[2019-06-05] MEDS: Apixaban 5 MG TAB PO SCH (08:57)
[2019-06-05] MEDS: Amiodarone 200 MG TAB PO SCH (08:57)
[2019-06-05] MEDS: Aspirin Chewable 81 MG TAB PO SCH (08:57)
[2019-06-05] MEDS: Citalopram 20 MG TAB PO SCH (08:57)
[2019-06-05] MEDS: Bupropion 100 MG SR TAB PO SCH (08:57)
[2019-06-05] MEDS: Furosemide 20 MG TAB PO SCH (08:57)
[2019-06-05] MEDS: Megestrol Acetate 800 MG/20 ML UDCUP PO SCH (08:59)
[2019-06-05 12:05] VITALS: TEMP 98
[2019-06-05 12:15] VITALS: BMI 30.1
[2019-06-05 16:03] VITALS: BP 135/70
[2019-06-05] MEDS ORDERED: Amiodarone 200 MG TAB PO SCH (21:00)
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
--- NOTE | 2019-06-06 18:20 | OP ---
DATE OF PROCEDURE: 06/04/19 INDICATION: Persistent atrial fibrillation. PROCEDURE: Electrical cardioversion. Patient remained in the PCU after undergoing transesophageal echo. With 200 and 300 joules with the pads, she remained in atrial fibrillation. Then with the paddles and 360 joules she returned to sinus bradycardia. Patient tolerated the procedure well.
--- NOTE | 2019-06-07 14:50 | EKG ---
Test Reason : CHEST PAIN Blood Pressure : / mmHG Vent. Rate : 129 BPM Atrial Rate : 127 BPM P-R Int : 000 ms QRS Dur : 064 ms QT Int : 278 ms P-R-T Axes : 000 003 084 degrees QTc Int : 407 ms Atrial fibrillation with rapid ventricular response with premature ventricular or aberrantly conducte d complexes Nonspecific T wave abnormality Abnormal ECG Confirmed by ARMAND FALLON, TOYIN Mead ([id number]), image editor SOFIA GAFFNEY ([id number]) on 06/07/2019 2:50:01 PM Referred By: Confirmed By:TOYIN ACUNA MD
[2019-06-19] MEDS ORDERED: Amiodarone 200 MG TAB PO SCH (09:00)
[2019-07-03] MEDS ORDERED: Amiodarone 200 MG TAB PO SCH (09:00)
== END 2019-06-05 18:45 | disposition home or self-care (01) | DRG 308 ==
LOC: ERS 19:15 → 2NO 23:47
PROVIDERS: ADMIT Family Medicine; ATTEND Family Medicine
PROC: B24BZZ4 Ultrasonography of Heart with Aorta, Transesophageal (ICD-10-PCS; principal; 2019-06-04)
PROC: 5A2204Z Restoration of Cardiac Rhythm, Single (ICD-10-PCS; 2019-06-04)
DX: I48.0 Paroxysmal atrial fibrillation (principal); I50.31 Acute diastolic (congestive) heart failure; N30.00 Acute cystitis without hematuria; E03.9 Hypothyroidism, unspecified; J44.9 Chronic obstructive pulmonary disease, unspecified; D64.9 Anemia, unspecified; F03.90 Unspecified dementia, unspecified severity, without behavioral disturbance, psychotic disturbance, mood disturbance, and anxiety; F41.9 Anxiety disorder, unspecified; Z66 Do not resuscitate; F32.9 Major depressive disorder, single episode, unspecified; E66.9 Obesity, unspecified; B96.20 Unspecified Escherichia coli [E. coli] as the cause of diseases classified elsewhere; Z79.82 Long term (current) use of aspirin; Z79.899 Other long term (current) drug therapy; Z87.891 Personal history of nicotine dependence; Z90.710 Acquired absence of both cervix and uterus; Z98.890 Other specified postprocedural states; Z86.718 Personal history of other venous thrombosis and embolism; Z86.711 Personal history of pulmonary embolism; Z79.890 Hormone replacement therapy; I11.0 Hypertensive heart disease with heart failure; G89.29 Other chronic pain; M54.9 Dorsalgia, unspecified; K21.9 Gastro-esophageal reflux disease without esophagitis; M81.0 Age-related osteoporosis without current pathological fracture; I48.92 Unspecified atrial flutter; I80.8 Phlebitis and thrombophlebitis of other sites
CPT/HCPCS: 36415; 36416; 51701; 71045; 71275; 80048; 80053; 80061; 80076; 81003; 81015; 82550; 82565; 82805; 83605; 83735; 83880; 84100; 84132; 84443; 84484; 85014; 85018; 85025; 85049; 87077; 87086; 87186; 92960; 93005; 93010; 93312; 94640; 96360; 96361; 96365; 96366; A4353; J0282; J0696; J1160; J1940; J2704; J2930; J3475; J3490; J7070; J7620; Q9966